=== PATIENT | female | born 1960 | race Caucasian/White ===

== ENCOUNTER 2017-01-07 22:25 | Emergency (ER) | payer MEDICARE, MEDICAID ==
[~2017-01-07] VITALS: Ht 165.1 cm; Wt 69.9 kg
[~2017-01-07 22:25] MED LIST: ASP81EC PO; ASPI81CH43 PO; Atorvastatin Calcium PO; INSU70IN9 SC; INSUINJ49 SC; LIS5T PO; METF500T PO; NOR10T PO; Phenazopyridine Hcl PO
[2017-01-08] MEDS ORDERED: SODIUM CHLORIDE 0.9% 1,000 ML IV ONE ×2 (01:45)
[2017-01-08] MEDS ORDERED: MORPHINE SULF INJ 2 MG/ML SYRINGE 1ML IV ONE (02:00)
[2017-01-08 02:35] LABS: Basophils # (auto) 0.1 uL; Basophils % (auto) 0.8 % (0.0-2.0); Eosinophils # (auto) 0.3 uL; Eosinophils % (auto) 4.3 % (0.0-7.0); Hematocrit 32.9 % (36.0-46.0); Hemoglobin 11.4 g/dL (12.2-16.2); Lymphocytes # (auto) 2.2 uL; Lymphocytes % (auto) 27.5 % (10.0-50.0); Mean Corpuscular Hemoglobin 29.3 pg (28.0-32.0); Mean Corpuscular Hgb Conc. 34.5 g/dL (32.0-36.0); Mean Corpuscular Volume 84.8 fL (80.0-100.0); Monocytes # (auto) 0.7 uL; Monocytes % (auto) 8.8 % (0.0-12.0); Neutrophils # (auto) 4.7 uL; Neutrophils % (auto) 58.6 % (37.0-80.0); Platelet Count (auto) 323 10^3/uL (140-450); Red Cell Distribution Width 12.5 % (11.6-16.0)
[2017-01-08 02:52] LABS: INR 1.04 (0.9-1.15); Prothrombin Time 11.2 sec (9.37-12.3)
[2017-01-08 02:59] LABS: Potassium 3.5 mmol/L (3.5-5.1)
[2017-01-08 03:00] LABS: Albumin 3.1 g/dL (3.4-5.0); BUN/Creatinine Ratio 28.3; Bilirubin, Total 1.1 mg/dL (0.2-1.0); Calcium 8.5 mg/dL (8.5-10.1); Total Protein 6.9 g/dL (6.4-8.2)
[2017-01-08 04:05] VITALS: BP 133/61
== END 2017-01-08 02:43 | disposition short-term general hospital (02) ==
LOC: ER 22:27
DX: S32.402A Unspecified fracture of left acetabulum, initial encounter for closed fracture (principal); F17.210 Nicotine dependence, cigarettes, uncomplicated; J45.909 Unspecified asthma, uncomplicated; E11.9 Type 2 diabetes mellitus without complications; W01.0XXA Fall on same level from slipping, tripping and stumbling without subsequent striking against object, initial encounter; Y93.89 Activity, other specified; Y99.8 Other external cause status; Y92.89 Other specified places as the place of occurrence of the external cause; Z88.1 Allergy status to other antibiotic agents; Z79.82 Long term (current) use of aspirin; Z79.4 Long term (current) use of insulin
CPT/HCPCS: 36415; 71010; 73502; 80053; 82962; 85025; 85610; 85730; 93005; 94761; 96361; 96374; 99285; J2270; J7030

== ENCOUNTER 2017-03-02 12:36 | Emergency (ER) | payer MEDICAID, MEDICARE ==
[~2017-03-02] VITALS: Ht 165.1 cm; Wt 67.1 kg
[2017-03-02 13:54] LABS: Basophils # (auto) 0 uL; Basophils % (auto) 0.2 % (0.0-2.0); CONDITION Y; Eosinophils # (auto) 0.1 uL; Eosinophils % (auto) 1.7 % (0.0-7.0); Hematocrit 41.8 % (36.0-46.0); Hemoglobin 14.6 g/dL (12.2-16.2); Lymphocytes # (auto) 1.3 uL; Lymphocytes % (auto) 15.5 % (10.0-50.0); Mean Corpuscular Hemoglobin 29.6 pg (28.0-32.0); Mean Corpuscular Hgb Conc. 34.9 g/dL (32.0-36.0); Mean Corpuscular Volume 84.8 fL (80.0-100.0); Mean Platelet Volume 8.4 fL (7.4-10.4); Monocytes # (auto) 0.4 uL; Monocytes % (auto) 4.2 % (0.0-12.0); Neutrophils # (auto) 6.8 uL; Neutrophils % (auto) 78.4 % (37.0-80.0); Platelet Count (auto) 373 10^3/uL (140-450); Red Cell Distribution Width 12.6 % (11.6-16.0); White Blood Cell 8.6 10^3/uL (4.4-10.8)
[2017-03-02 14:00] LABS: Albumin 3.5 g/dL (3.4-5.0); Alkaline Phosphatase 147 U/L (45-117); Anion Gap 10 (5-15); Aspartate Aminotransferase 15 U/L (15-37); BUN/Creatinine Ratio 18.2; Bilirubin, Total 0.7 mg/dL (0.2-1.0); Blood Urea Nitrogen 20 mg/dL (7-18); Calcium 9.1 mg/dL (8.5-10.1); Carbon Dioxide 24 mmol/L (21-32); Chloride 102 mmol/L (98-107); GFR African American 66 mL/min; GFR Non-African American 55 mL/min; Glucose 381 mg/dL (74-106); Potassium 3.4 mmol/L (3.5-5.1); Sodium 136 mmol/L (136-145); Total Protein 7.9 g/dL (6.4-8.2)
[2017-03-02 14:28] LABS: Urine Bilirubin Negative (Negative); Urine Blood Negative /uL (Negative); Urine Color Yellow (Yellow); Urine Glucose 4+ mg/dL (Normal); Urine Ketone Negative (Negative); Urine Mucus FEW (None Seen); Urine Nitrite Negative (Negative); Urine RBC 1 /hpf (0 - 4); Urine Squamous Epithelial Cell FEW /hpf (<5); Urine Urobilinogen Normal (Negative); Urine pH 5.5 (5.0-8.0)
[2017-03-02] MEDS ORDERED: SODIUM CHLORIDE 0.9% 1,000 ML IV ONE (19:30)
[2017-03-02] MEDS ORDERED: ONDANSETRON HCL 4 MG/2 ML VIAL IV ONE (19:30)
[2017-03-02] MEDS ORDERED: MAGNESIUM CITRATE SOLUTION 300 ML BTL PO ONE (19:30)
[2017-03-02] MEDS ORDERED: NALBUPHINE HCL 10 MG/1ml INJECTION IV ONE (22:00)
[2017-03-02] MEDS ORDERED: FAMOTIDINE (10MG/ML) 2ML VL IV ONE (22:30)
[2017-03-02] MEDS ORDERED: HYDROcodone-ACET 10/325MG TAB PO ONE (22:30)
[2017-03-02] MEDS ORDERED: InsuLIN REG 1unit/0.01ml Soln (100units/ml) IV ONE (23:15)
[2017-03-03 01:44] VITALS: BP 110/71
== END 2017-03-03 02:01 | disposition home or self-care (01) ==
LOC: ER 12:36
DX: K29.70 Gastritis, unspecified, without bleeding (principal); F41.9 Anxiety disorder, unspecified; K59.00 Constipation, unspecified; Z88.1 Allergy status to other antibiotic agents; E11.65 Type 2 diabetes mellitus with hyperglycemia; F17.210 Nicotine dependence, cigarettes, uncomplicated; J45.909 Unspecified asthma, uncomplicated; Z79.899 Other long term (current) drug therapy; Z79.82 Long term (current) use of aspirin; Z79.4 Long term (current) use of insulin; Z90.49 Acquired absence of other specified parts of digestive tract
CPT/HCPCS: 36415; 74176; 80053; 81001; 82962; 83690; 84484; 85025; 96361; 96374; 96375; 99285; J2405; J7030

== ENCOUNTER 2017-03-03 06:10 | Emergency (ER) | payer MEDICARE ==
[~2017-03-03] VITALS: Ht 160 cm; Wt 67.1 kg
[2017-03-03 09:04] VITALS: BP 132/79
[2017-03-03] MEDS ORDERED: ONDANSETRON ODT 4 MG TAB PO ONE (09:15)
[2017-03-03] MEDS ORDERED: PANTOPRAZOLE 40 MG TAB PO ONE (09:15)
== END 2017-03-03 09:20 | disposition home or self-care (01) ==
LOC: ER 06:19
DX: K29.70 Gastritis, unspecified, without bleeding (principal); J45.909 Unspecified asthma, uncomplicated; E11.9 Type 2 diabetes mellitus without complications; F17.210 Nicotine dependence, cigarettes, uncomplicated; Z79.4 Long term (current) use of insulin; Z79.899 Other long term (current) drug therapy; Z79.82 Long term (current) use of aspirin
CPT/HCPCS: 99283; Q0162

== ENCOUNTER 2017-04-06 20:53 | Inpatient (IN) | payer MEDICARE ==
[~2017-04-06] VITALS: Ht 160 cm; Wt 72.2 kg
[~2017-04-06 20:53] MED LIST changes: -Atorvastatin Calcium PO; +INS7030I SC; -INSUINJ49 SC; -LIS5T PO; -METF500T PO
[2017-04-06 22:08] LABS: Basophils # (auto) 0 uL; Basophils % (auto) 0.5 % (0.0-2.0); CONDITION Y; Eosinophils # (auto) 0.1 uL; Hemoglobin 16.4 g/dL (12.2-16.2); Mean Corpuscular Hemoglobin 29.7 pg (28.0-32.0); Mean Corpuscular Hgb Conc. 34.8 g/dL (32.0-36.0); Mean Corpuscular Volume 85.2 fL (80.0-100.0); Mean Platelet Volume 9.2 fL (7.4-10.4); Monocytes # (auto) 0.3 uL; Monocytes % (auto) 4.1 % (0.0-12.0); Neutrophils # (auto) 5.5 uL; Neutrophils % (auto) 69.4 % (37.0-80.0); Platelet Count (auto) 395 10^3/uL (140-450); Red Cell Distribution Width 12.9 % (11.6-16.0)
[2017-04-06 22:32] LABS: Albumin 3.6 g/dL (3.4-5.0); Calcium 9.1 mg/dL (8.5-10.1); Potassium 4.4 mmol/L (3.5-5.1)
[2017-04-06 22:37] LABS: BUN/Creatinine Ratio 20.7; Bilirubin, Total 1.4 mg/dL (0.2-1.0); Total Protein 8.7 g/dL (6.4-8.2)
[2017-04-06] MEDS ORDERED: SODIUM CHLORIDE 0.9% 1,000 ML IVB ONE (22:37)
[2017-04-06] MEDS ORDERED: KETOROLAC TROMETH 30 MG/ML 1ML VIAL IV ONE (22:45)
[2017-04-06] MEDS ORDERED: InsuLIN REG 1unit/0.01ml Soln (100units/ml) IV ONE (22:45)
[2017-04-06] MEDS ORDERED: ONDANSETRON HCL 4 MG/2 ML VIAL IV ONE (22:45)
[2017-04-06 22:56] LABS: Magnesium 2.4 mg/dL (1.6-2.6)
[2017-04-06 22:58] LABS: Urine RBC 2 /hpf (0 - 4); Urine Squamous Epithelial Cell FEW /hpf (<5)
[2017-04-06 23:09] LABS: Urine Bilirubin Negative (Negative); Urine Blood Negative /uL (Negative); Urine Color Yellow (Yellow); Urine Glucose 4+ mg/dL (Normal); Urine Ketone Negative (Negative); Urine Nitrite Negative (Negative); Urine Urobilinogen Normal (Negative)
[2017-04-06 23:11] LABS: INR 0.92 (0.9-1.15); Partial Thromboplastin Time 22.5 sec (22.64-33.71)
[2017-04-06 23:27] LABS: B-Type Natriuretic Peptide 25.13 pg/mL (0-100)
[2017-04-06 23:28] LABS: Temperature: 23.9 C (20.0-25.0)
[2017-04-07] MEDS ORDERED: HYDROcodone-ACET 5/325MG TAB PO ONE (00:15)
[2017-04-07] MEDS ORDERED: InsuLIN R (HUMAN) 100 UNITS in SODIUM CHL 0.9% 99 ML IV SCH (01:06)
[2017-04-07] MEDS ORDERED: DEXTROSE (50%) 50ML SYRG IV PRN ×3 (01:15→18:30)
[2017-04-07] MEDS: ACCU-CHEK COMFORT CURVE STRIP VI SCH ×17 (01:30→21:19)
[2017-04-07] MEDS ORDERED: InsuLIN REG 1unit/0.01ml Soln (100units/ml) ONE (01:44)
[2017-04-07] MEDS ORDERED: ONDANSETRON HCL 4 MG/2 ML VIAL IV ONE (03:00)
[2017-04-07] MEDS ORDERED: NITROGLYCERIN 0.4 MG SL TAB SL PRN ×2 (04:45→18:30)
[2017-04-07] MEDS ORDERED: MORPHINE SULF INJ 2 MG/ML SYRINGE 1ML IV PRN ×2 (04:45→18:30)
[2017-04-07] MEDS ORDERED: LACTULOSE 20Gm/30ML SOLN PO PRN (04:45)
[2017-04-07] MEDS ORDERED: ONDANSETRON HCL 4 MG/2 ML VIAL IV PRN (05:00)
[2017-04-07] MEDS: SODIUM CHLORIDE 0.9% 1,000 ML IV SCH ×2 (05:03→10:24)
[2017-04-07] MEDS: HYDROmorphone HCL 2 MG/ML VL IV PRN ×3 (05:12→19:29)
[2017-04-07] MEDS: FAMOTIDINE 20 MG TAB PO SCH ×2 (08:44→21:41)
[2017-04-07 10:27] LABS: Basophils # (auto) 0.1 uL; CONDITION Y; Eosinophils # (auto) 0.2 uL; Eosinophils % (auto) 4.3 % (0.0-7.0); Hematocrit 38.3 % (36.0-46.0); Hemoglobin 13.7 g/dL (12.2-16.2); Lymphocytes # (auto) 1.6 uL; Mean Corpuscular Hemoglobin 29.9 pg (28.0-32.0); Mean Corpuscular Hgb Conc. 35.7 g/dL (32.0-36.0); Mean Corpuscular Volume 83.7 fL (80.0-100.0); Mean Platelet Volume 8.5 fL (7.4-10.4); Monocytes # (auto) 0.3 uL; Monocytes % (auto) 5.7 % (0.0-12.0); Platelet Count (auto) 294 10^3/uL (140-450); Red Cell Distribution Width 13.3 % (11.6-16.0); White Blood Cell 5.2 10^3/uL (4.4-10.8)
[2017-04-07 10:42] LABS: Albumin 2.9 g/dL (3.4-5.0); BUN/Creatinine Ratio 28.7; Calcium 8.2 mg/dL (8.5-10.1); Potassium 4.1 mmol/L (3.5-5.1)
[2017-04-07 10:44] LABS: Bilirubin, Total 0.7 mg/dL (0.2-1.0)
[2017-04-07] MEDS ORDERED: INSULIN 70/30 1unit/0.01ml Susp (100units/ml) SC ONE (13:30)
[2017-04-07] MEDS: HYDROcodone-ACET 5/325MG TAB PO PRN (15:14)
[2017-04-07] MEDS: InsuLIN REG 1unit/0.01ml Soln (100units/ml) SC SCH ×2 (16:03→21:20)
[2017-04-07 20:00] VITALS: BP 109/76
[2017-04-07] MEDS: INSULIN 70/30 1unit/0.01ml Susp (100units/ml) SC SCH (21:42)
[2017-04-07 22:17] VITALS: BP 109/66
[2017-04-08] MEDS: InsuLIN REG 1unit/0.01ml Soln (100units/ml) SC SCH ×6 (00:20→22:25)
[2017-04-08] MEDS: ACCU-CHEK COMFORT CURVE STRIP VI SCH ×6 (00:20→22:21)
[2017-04-08] MEDS ORDERED: TRAM50TA2 PO (02:02)
[2017-04-08] MEDS: HYDROmorphone HCL 2 MG/ML VL IV PRN ×3 (02:27→11:40)
[2017-04-08] MEDS ORDERED: SODIUM CHLORIDE 0.9% 1,000 ML IV SCH (04:45)
[2017-04-08 05:31] VITALS: BP 104/64
[2017-04-08 06:47] LABS: Basophils # (auto) 0 uL; Basophils % (auto) 0.5 % (0.0-2.0); CONDITION Y; Eosinophils # (auto) 0.2 uL; Eosinophils % (auto) 4.2 % (0.0-7.0); Hematocrit 34.7 % (36.0-46.0); Hemoglobin 12.6 g/dL (12.2-16.2); Lymphocytes # (auto) 1.4 uL; Lymphocytes % (auto) 25.4 % (10.0-50.0); Mean Corpuscular Hemoglobin 31.1 pg (28.0-32.0); Mean Corpuscular Hgb Conc. 36.2 g/dL (32.0-36.0); Mean Corpuscular Volume 85.9 fL (80.0-100.0); Mean Platelet Volume 8.9 fL (7.4-10.4); Monocytes # (auto) 0.4 uL; Neutrophils # (auto) 3.4 uL; Neutrophils % (auto) 62.9 % (37.0-80.0); Platelet Count (auto) 236 10^3/uL (140-450); Red Cell Distribution Width 13.8 % (11.6-16.0); White Blood Cell 5.3 10^3/uL (4.4-10.8)
[2017-04-08 07:01] LABS: Albumin 2.4 g/dL (3.4-5.0); BUN/Creatinine Ratio 29.5; Calcium 7.8 mg/dL (8.5-10.1); Potassium 3.9 mmol/L (3.5-5.1)
[2017-04-08 07:03] LABS: Bilirubin, Total 0.4 mg/dL (0.2-1.0); Total Protein 5.9 g/dL (6.4-8.2)
[2017-04-08 08:00] VITALS: BP 102/61
[2017-04-08 09:00] VITALS: BP 102/61
[2017-04-08] MEDS: FAMOTIDINE 20 MG TAB PO SCH ×2 (09:51→22:17)
[2017-04-08] MEDS: INSULIN 70/30 1unit/0.01ml Susp (100units/ml) SC SCH ×2 (09:52→22:23)
[2017-04-08] MEDS ORDERED: NICOTINE 21MG/24 HR TOPICAL PATCH TD ONE (11:00)
[2017-04-08 13:00] VITALS: BP 113/71
[2017-04-08] MEDS ORDERED: DEXTROSE (50%) 50ML SYRG IV PRN (13:30)
[2017-04-08 16:54] VITALS: BP 120/69
[2017-04-08] MEDS: HYDROcodone-ACET 5/325MG TAB PO PRN (16:54)
[2017-04-08 21:26] VITALS: BP 118/69
[2017-04-09] MEDS: HYDROcodone-ACET 5/325MG TAB PO PRN ×3 (00:03→17:14)
[2017-04-09 05:05] VITALS: BP 104/69
[2017-04-09 05:23] LABS: BUN/Creatinine Ratio 29.1; Calcium 7.7 mg/dL (8.5-10.1); Potassium 3.6 mmol/L (3.5-5.1)
[2017-04-09] MEDS: SODIUM CHLORIDE 0.9% 1,000 ML IV SCH ×2 (05:24→20:43)
[2017-04-09] MEDS: InsuLIN REG 1unit/0.01ml Soln (100units/ml) SC SCH ×4 (06:23→22:19)
[2017-04-09] MEDS: ACCU-CHEK COMFORT CURVE STRIP VI SCH ×4 (06:23→22:19)
[2017-04-09 09:00] VITALS: BP 105/62
[2017-04-09] MEDS: FAMOTIDINE 20 MG TAB PO SCH ×2 (10:26→22:19)
[2017-04-09] MEDS: INSULIN 70/30 1unit/0.01ml Susp (100units/ml) SC SCH ×2 (10:26→22:19)
[2017-04-09] MEDS: NICOTINE 21MG/24 HR TOPICAL PATCH TD SCH (10:27)
[2017-04-09 13:00] VITALS: BP 124/82
[2017-04-09 14:46] VITALS: BP 129/70
[2017-04-09] MEDS: KETOROLAC TROMETH 30 MG/ML 1ML VIAL IV PRN (20:42)
[2017-04-09] MEDS ORDERED: TEMAZEPAM 15 MG CAP PO ONE (23:15)
[2017-04-10] MEDS: HYDROcodone-ACET 5/325MG TAB PO PRN ×2 (00:21→18:55)
[2017-04-10 05:00] VITALS: BP 98/59
[2017-04-10] MEDS: InsuLIN REG 1unit/0.01ml Soln (100units/ml) SC SCH ×3 (06:31→18:41)
[2017-04-10] MEDS: ACCU-CHEK COMFORT CURVE STRIP VI SCH ×3 (06:31→18:39)
[2017-04-10] MEDS: KETOROLAC TROMETH 30 MG/ML 1ML VIAL IV PRN ×2 (06:52→14:47)
[2017-04-10 09:00] VITALS: BP 125/78
[2017-04-10] MEDS: SODIUM CHLORIDE 0.9% 1,000 ML IV SCH (09:21)
[2017-04-10] MEDS: FAMOTIDINE 20 MG TAB PO SCH (10:32)
[2017-04-10] MEDS: INSULIN 70/30 1unit/0.01ml Susp (100units/ml) SC SCH (10:33)
[2017-04-10] MEDS: NICOTINE 21MG/24 HR TOPICAL PATCH TD SCH (10:34)
[2017-04-10 13:00] VITALS: BP 134/92
[2017-04-10] MEDS ORDERED: InsuLIN REG 1unit/0.01ml Soln (100units/ml) SC ONE (16:15)
[2017-04-10 17:00] VITALS: BP 138/75
== END 2017-04-10 19:50 | disposition home or self-care (01) | DRG 682 ==
LOC: ER 21:13 → TELE 21:14 → TELE-WESTW 04-07 20:00
PROVIDERS: ADMIT Family Medicine; ATTEND Internal Medicine
DX: N17.0 Acute kidney failure with tubular necrosis (principal); E13.10 Other specified diabetes mellitus with ketoacidosis without coma; J45.909 Unspecified asthma, uncomplicated; F17.210 Nicotine dependence, cigarettes, uncomplicated; Z91.14 Patient's other noncompliance with medication regimen; Z88.1 Allergy status to other antibiotic agents; Z79.82 Long term (current) use of aspirin; Z79.4 Long term (current) use of insulin; Z90.49 Acquired absence of other specified parts of digestive tract; Z86.14 Personal history of Methicillin resistant Staphylococcus aureus infection; Z71.6 Tobacco abuse counseling; Z71.3 Dietary counseling and surveillance
CPT/HCPCS: 36415; 36600; 71020; 80048; 80053; 80307; 81001; 82010; 82805; 82962; 83036; 83605; 83735; 83880; 85025; 85610; 85730; 86141; 87081; 93005; 97110; 97116; 97163; 97530; J1815; J1885; J2405

== ENCOUNTER 2017-05-20 14:19 | Inpatient (IN) | payer MEDICARE, MEDICAID ==
[~2017-05-20] VITALS: Ht 160 cm; Wt 73.5 kg
[~2017-05-20 14:19] MED LIST changes: -ASPI81CH43 PO; -INS7030I SC; -INSU70IN9 SC; -NOR10T PO; -Phenazopyridine Hcl PO
[2017-05-20] MEDS ORDERED: SODIUM CHLORIDE 0.9% 1,000 ML IV ONE ×2 (14:29)
[2017-05-20] MEDS ORDERED: MORPHINE SULFATE 4 MG/ML SYRG IV ONE (14:45)
[2017-05-20] MEDS ORDERED: ONDANSETRON HCL 4 MG/2 ML VIAL IV ONE (14:45)
[2017-05-20] MEDS ORDERED: InsuLIN REG 1unit/0.01ml Soln (100units/ml) IV ONE (14:45)
[2017-05-20] MEDS ORDERED: MORPHINE SULF INJ 2 MG/ML SYRINGE 1ML IV ONE (15:00)
[2017-05-20 15:23] LABS: Basophils # (auto) 0.1 uL; Basophils % (auto) 1.2 % (0.0-2.0); Eosinophils # (auto) 0.1 uL; Eosinophils % (auto) 3.2 % (0.0-7.0); Hematocrit 35.1 % (36.0-46.0); Lymphocytes # (auto) 0.9 uL; Lymphocytes % (auto) 20.7 % (10.0-50.0); Mean Corpuscular Hemoglobin 29.6 pg (28.0-32.0); Mean Corpuscular Hgb Conc. 34.2 g/dL (32.0-36.0); Mean Corpuscular Volume 86.7 fL (80.0-100.0); Mean Platelet Volume 8.3 fL (7.4-10.4); Monocytes # (auto) 0.2 uL; Monocytes % (auto) 5.4 % (0.0-12.0); Neutrophils # (auto) 3.1 uL; Neutrophils % (auto) 69.5 % (37.0-80.0); Platelet Count (auto) 285 10^3/uL (140-450); Red Cell Distribution Width 12.9 % (11.6-16.0); White Blood Cell 4.5 10^3/uL (4.4-10.8)
[2017-05-20 15:36] LABS: INR 0.92 (0.9-1.15); Partial Thromboplastin Time 22.4 sec (22.64-33.71)
[2017-05-20 15:51] LABS: Alkaline Phosphatase 157 U/L (45-117); Anion Gap 10 (5-15); Aspartate Aminotransferase 6 U/L (15-37); BUN/Creatinine Ratio 46.3; Bilirubin, Total 0.4 mg/dL (0.2-1.0); Blood Urea Nitrogen 56 mg/dL (7-18); Calcium 8.5 mg/dL (8.5-10.1); Carbon Dioxide 18 mmol/L (21-32); Chloride 105 mmol/L (98-107); GFR African American 59 mL/min; GFR Non-African American 49 mL/min; Potassium 3.2 mmol/L (3.5-5.1); Sodium 133 mmol/L (136-145); Total Protein 7.3 g/dL (6.4-8.2)
[2017-05-20 16:14] LABS: Glucose 549 mg/dL (74-106)
[2017-05-20] MEDS ORDERED: SODIUM CHLORIDE 0.9% 1,000 ML IV SCH (17:03)
[2017-05-20] MEDS ORDERED: DEXTROSE (50%) 50ML SYRG IV PRN (17:15)
[2017-05-20] MEDS ORDERED: LORazepam 0.5 MG TAB PO PRN (17:15)
[2017-05-20] MEDS ORDERED: NITROGLYCERIN 0.4 MG SL TAB SL PRN (17:15)
[2017-05-20] MEDS ORDERED: TEMAZEPAM 15 MG CAP PO PRN (17:15)
[2017-05-20] MEDS ORDERED: ACETAMINOPHEN 500 MG TAB PO PRN (17:15)
[2017-05-20] MEDS ORDERED: MORPHINE SULF INJ 2 MG/ML SYRINGE 1ML IV PRN (17:15)
[2017-05-20 17:27] LABS: Amylase 48 U/L (25-115)
[2017-05-20] MEDS ORDERED: NICOTINE 14 MG/24HR TOPICAL PATCH TD ONE (18:15)
[2017-05-20] MEDS ORDERED: MORPHINE SULF INJ 2 MG/ML SYRINGE 1ML ONE (18:15)
[2017-05-20] MEDS ORDERED: ALBUTEROL SULF 2.5 MG/0.5ML(0.5%) NEB SOLN NEB PRN (18:15)
[2017-05-20] MEDS: PROMETHAZINE HCL 25 MG/ML 1ML IV PRN (18:27)
[2017-05-20] MEDS: MORPHINE SULFATE 4 MG/ML SYRG IV PRN (18:27)
[2017-05-20] MEDS ORDERED: AZITHROMYCIN 500MG/D5W 250ML 250 ML IV ONE (18:30)
[2017-05-20 19:04] LABS: Urine Bilirubin Negative (Negative); Urine Blood Negative /uL (Negative); Urine Color Yellow (Yellow); Urine Glucose 4+ mg/dL (Normal); Urine Ketone Negative (Negative); Urine Mucus FEW (None Seen); Urine Nitrite Negative (Negative); Urine RBC 4 /hpf (0 - 4); Urine Squamous Epithelial Cell FEW /hpf (<5); Urine Urobilinogen Normal (Negative); Urine pH 5.5 (5.0-8.0)
[2017-05-20] MEDS: SODIUM CHLORIDE 0.9% 1,000 ML IV SCH ×2 (19:58→21:34)
[2017-05-20] MEDS: ACCU-CHEK COMFORT CURVE STRIP VI SCH ×2 (20:03→23:28)
[2017-05-20] MEDS: FAMOTIDINE (10MG/ML) 2ML VL IV SCH (20:05)
[2017-05-20] MEDS: InsuLIN REG 1unit/0.01ml Soln (100units/ml) SC SCH ×2 (20:12→23:37)
[2017-05-20 20:30] VITALS: BP 106/65
[2017-05-20 22:00] VITALS: BP 106/65
[2017-05-20] MEDS ORDERED: HYDR-4663 PO (22:50)
[2017-05-20] MEDS ORDERED: TRAM50TA2 PO (22:50)
[2017-05-20] MEDS ORDERED: TEMA30CA PO (22:54)
[2017-05-21] VITALS (7 sets, daily range): BP systolic 97–122; BP diastolic 60–75
[2017-05-21] MEDS ORDERED: INSU70IN3 SC (00:34)
[2017-05-21] MEDS: HYDROcodone-ACET 5/325MG TAB PO PRN (01:08)
[2017-05-21] MEDS: ALBUTEROL SULF 2.5 MG/0.5ML(0.5%) NEB SOLN NEB SCH ×4 (01:26→19:36)
[2017-05-21] MEDS: IPRATROPIUM BROM 0.5 MG/2.5ML INH SOL NEB SCH ×4 (01:26→19:36)
[2017-05-21] MEDS: InsuLIN REG 1unit/0.01ml Soln (100units/ml) SC SCH ×5 (04:00→20:26)
[2017-05-21] MEDS: ACCU-CHEK COMFORT CURVE STRIP VI SCH ×5 (04:17→20:26)
[2017-05-21 05:34] LABS: Basophils # (auto) 0 uL; Basophils % (auto) 0.4 % (0.0-2.0); Eosinophils # (auto) 0.2 uL; Eosinophils % (auto) 2.3 % (0.0-7.0); Hematocrit 29.8 % (36.0-46.0); Hemoglobin 10.5 g/dL (12.2-16.2); Lymphocytes # (auto) 1.1 uL; Lymphocytes % (auto) 15.2 % (10.0-50.0); Mean Corpuscular Hemoglobin 30.2 pg (28.0-32.0); Mean Corpuscular Hgb Conc. 35.2 g/dL (32.0-36.0); Mean Corpuscular Volume 85.6 fL (80.0-100.0); Mean Platelet Volume 8.2 fL (7.4-10.4); Monocytes # (auto) 0.4 uL; Monocytes % (auto) 6.2 % (0.0-12.0); Neutrophils # (auto) 5.3 uL; Neutrophils % (auto) 75.9 % (37.0-80.0); Nucleated Red Blood Cells % 0.1 %; Platelet Count (auto) 224 10^3/uL (140-450); Red Cell Distribution Width 13.4 % (11.6-16.0)
[2017-05-21 06:18] LABS: Albumin 2.5 g/dL (3.4-5.0); BUN/Creatinine Ratio 58.5; Bilirubin, Total 0.2 mg/dL (0.2-1.0); Calcium 8.4 mg/dL (8.5-10.1); Potassium 3.3 mmol/L (3.5-5.1); Total Protein 6.1 g/dL (6.4-8.2)
[2017-05-21] MEDS: FAMOTIDINE (10MG/ML) 2ML VL IV SCH (09:07)
[2017-05-21] MEDS: MORPHINE SULFATE 4 MG/ML SYRG IV PRN ×3 (09:08→20:13)
[2017-05-21] MEDS: SODIUM CHLORIDE 0.9% 1,000 ML IV SCH ×3 (09:08→23:19)
[2017-05-21] MEDS: NICOTINE 14 MG/24HR TOPICAL PATCH TD SCH (09:09)
[2017-05-21] MEDS ORDERED: cefTRIAXone 1GM/50ML D5W 50 ML IV ONE (10:00)
[2017-05-21] MEDS ORDERED: AZITHROMYCIN 500MG/D5W 250ML 250 ML IV SCH (10:00)
[2017-05-21] MEDS ORDERED: ASPirin-EC 81 mg tab PO SCH (10:00)
[2017-05-21] MEDS ORDERED: ENOXAPARIN SOD 40 MG/0.4 ML SYRINGE SC SCH (10:00)
[2017-05-21] MEDS ORDERED: POTASSIUM CHL 20 Meq TABLET PO ONE (10:00)
[2017-05-21] MEDS: PANTOPRAZOLE 40 MG TAB PO SCH (12:46)
[2017-05-21] MEDS: PROMETHAZINE HCL 25 MG/ML 1ML IV PRN ×2 (17:37→20:26)
[2017-05-21 18:18] LABS: Hematocrit 28.1 % (36.0-46.0)
[2017-05-21] MEDS: ATORVASTATIN 20 MG TAB PO SCH (22:00)
[2017-05-22] VITALS (7 sets, daily range): BP systolic 119–137; BP diastolic 67–71
[2017-05-22] MEDS: ACCU-CHEK COMFORT CURVE STRIP VI SCH ×6 (00:22→20:00)
[2017-05-22] MEDS: InsuLIN REG 1unit/0.01ml Soln (100units/ml) SC SCH ×6 (00:22→20:31)
[2017-05-22] MEDS: MORPHINE SULFATE 4 MG/ML SYRG IV PRN ×5 (00:23→21:00)
[2017-05-22] MEDS: PROMETHAZINE HCL 25 MG/ML 1ML IV PRN ×5 (00:23→21:00)
[2017-05-22] MEDS: ALBUTEROL SULF 2.5 MG/0.5ML(0.5%) NEB SOLN NEB SCH ×4 (01:41→18:47)
[2017-05-22] MEDS: IPRATROPIUM BROM 0.5 MG/2.5ML INH SOL NEB SCH ×4 (01:41→18:47)
[2017-05-22 02:19] LABS: Hematocrit 26.5 % (36.0-46.0); Hemoglobin 9.1 g/dL (12.2-16.2)
[2017-05-22] MEDS: LACTULOSE 20Gm/30ML SOLN PO PRN ×2 (04:37→20:32)
[2017-05-22] MEDS: SODIUM CHLORIDE 0.9% 1,000 ML IV SCH ×3 (05:32→16:59)
[2017-05-22 07:47] LABS: Hematocrit 27.5 % (36.0-46.0); Hemoglobin 9.6 g/dL (12.2-16.2)
[2017-05-22] MEDS: cefTRIAXone 1GM/50ML D5W 50 ML IV SCH (08:37)
[2017-05-22] MEDS: BISACODYL 10 MG RECT SUPP PR ONE ×2 (10:00→10:13)
[2017-05-22] MEDS: PANTOPRAZOLE 40 MG TAB PO SCH (10:13)
[2017-05-22] MEDS: NICOTINE 14 MG/24HR TOPICAL PATCH TD SCH (10:14)
[2017-05-22] MEDS ORDERED: INS7030I SC (10:16)
[2017-05-22 11:45] LABS: Amylase 61 U/L (25-115)
[2017-05-22] MEDS: ATORVASTATIN 20 MG TAB PO SCH (22:00)
[2017-05-23] MEDS: ACCU-CHEK COMFORT CURVE STRIP VI SCH ×5 (00:04→22:02)
[2017-05-23] MEDS: InsuLIN REG 1unit/0.01ml Soln (100units/ml) SC SCH ×4 (00:04→17:36)
[2017-05-23] MEDS: SODIUM CHLORIDE 0.9% 1,000 ML IV SCH (01:04)
[2017-05-23 05:00] VITALS: BP 136/73
[2017-05-23] MEDS: HYDROcodone-ACET 5/325MG TAB PO PRN ×3 (05:00→17:37)
[2017-05-23] MEDS: ALBUTEROL SULF 2.5 MG/0.5ML(0.5%) NEB SOLN NEB SCH ×5 (05:36→23:34)
[2017-05-23] MEDS: IPRATROPIUM BROM 0.5 MG/2.5ML INH SOL NEB SCH ×5 (05:36→23:34)
[2017-05-23 06:27] LABS: Basophils # (auto) 0.1 uL; Basophils % (auto) 0.9 % (0.0-2.0); Eosinophils # (auto) 0.3 uL; Eosinophils % (auto) 4.8 % (0.0-7.0); Hematocrit 27.4 % (36.0-46.0); Hemoglobin 9.6 g/dL (12.2-16.2); Lymphocytes # (auto) 1.3 uL; Lymphocytes % (auto) 20.8 % (10.0-50.0); Mean Corpuscular Volume 85.8 fL (80.0-100.0); Monocytes # (auto) 0.3 uL; Monocytes % (auto) 5.3 % (0.0-12.0); Neutrophils # (auto) 4.2 uL; Neutrophils % (auto) 68.2 % (37.0-80.0); Platelet Count (auto) 223 10^3/uL (140-450); Red Cell Distribution Width 13.2 % (11.6-16.0); White Blood Cell 6.1 10^3/uL (4.4-10.8)
[2017-05-23 08:00] VITALS: BP 133/75
[2017-05-23 08:24] VITALS: BP 133/75
[2017-05-23] MEDS: cefTRIAXone 1GM/50ML D5W 50 ML IV SCH (09:00)
[2017-05-23] MEDS ORDERED: DEXTROSE (50%) 50ML SYRG IV PRN (10:15)
[2017-05-23] MEDS ORDERED: GABAPENTIN 300 MG CAP PO ONE (10:15)
[2017-05-23] MEDS ORDERED: LACTULOSE 20Gm/30ML SOLN PO ONE (10:15)
[2017-05-23] MEDS ORDERED: MORPHINE SULF INJ 2 MG/ML SYRINGE 1ML IV PRN (10:15)
[2017-05-23] MEDS ORDERED: INSULIN 70/30 1unit/0.01ml Susp (100units/ml) SC ONE (10:15)
[2017-05-23] MEDS ORDERED: DOCUSATE SOD 100 MG CAP PO ONE (10:15)
[2017-05-23] MEDS: PANTOPRAZOLE 40 MG TAB PO SCH (11:00)
[2017-05-23] MEDS: NICOTINE 14 MG/24HR TOPICAL PATCH TD SCH (11:01)
[2017-05-23 12:20] VITALS: BP 125/70
[2017-05-23] MEDS ORDERED: GABAPENTIN 300 MG CAP PO SCH (14:00)
[2017-05-23 16:35] VITALS: BP 129/72
[2017-05-23] MEDS ORDERED: SODIUM CHLORIDE 0.9% 1,000 ML IV SCH (20:00)
[2017-05-23 21:30] VITALS: BP 128/72
[2017-05-23] MEDS ORDERED: InsuLIN REG 1unit/0.01ml Soln (100units/ml) SC SCH (22:00)
[2017-05-23] MEDS: ATORVASTATIN 20 MG TAB PO SCH (22:00)
[2017-05-23] MEDS: INSULIN 70/30 1unit/0.01ml Susp (100units/ml) SC SCH (22:01)
[2017-05-24 02:56] VITALS: BP 128/72
[2017-05-24 05:00] VITALS: BP 121/61
[2017-05-24 05:49] LABS: BUN/Creatinine Ratio 27.7; Calcium 8.3 mg/dL (8.5-10.1); Potassium 3.6 mmol/L (3.5-5.1)
[2017-05-24] MEDS: ALBUTEROL SULF 2.5 MG/0.5ML(0.5%) NEB SOLN NEB SCH ×2 (06:00→11:23)
[2017-05-24] MEDS: IPRATROPIUM BROM 0.5 MG/2.5ML INH SOL NEB SCH ×2 (06:00→11:24)
[2017-05-24] MEDS: ACCU-CHEK COMFORT CURVE STRIP VI SCH (06:18)
[2017-05-24] MEDS: InsuLIN REG 1unit/0.01ml Soln (100units/ml) SC SCH (06:18)
[2017-05-24] MEDS: HYDROcodone-ACET 5/325MG TAB PO PRN (06:20)
[2017-05-24] MEDS: cefTRIAXone 1GM/50ML D5W 50 ML IV SCH (09:00)
[2017-05-24 10:09] VITALS: BP 133/76
[2017-05-24] MEDS: PANTOPRAZOLE 40 MG TAB PO SCH (10:33)
[2017-05-24] MEDS: NICOTINE 14 MG/24HR TOPICAL PATCH TD SCH (10:34)
[2017-05-24] MEDS: INSULIN 70/30 1unit/0.01ml Susp (100units/ml) SC SCH (10:34)
[2017-05-24 11:52] VITALS: BP 133/76
[2017-05-24 12:34] VITALS: BP 125/67
== END 2017-05-24 15:10 | disposition home or self-care (01) | DRG 191 ==
LOC: EDBD 14:19 → ER 14:22 → TELE 14:23 → TELE-CENTR 20:30 → CENTRAL 05-23 13:16
PROVIDERS: ADMIT Internal Medicine; ATTEND Internal Medicine
DX: J44.1 Chronic obstructive pulmonary disease with (acute) exacerbation (principal); E87.1 Hypo-osmolality and hyponatremia; E11.42 Type 2 diabetes mellitus with diabetic polyneuropathy; N39.0 Urinary tract infection, site not specified; K56.41 Fecal impaction; E11.65 Type 2 diabetes mellitus with hyperglycemia; S32.402D Unspecified fracture of left acetabulum, subsequent encounter for fracture with routine healing; D64.9 Anemia, unspecified; F41.9 Anxiety disorder, unspecified; G47.00 Insomnia, unspecified; F15.10 Other stimulant abuse, uncomplicated; E78.1 Pure hyperglyceridemia; F17.210 Nicotine dependence, cigarettes, uncomplicated; E87.6 Hypokalemia; Z82.49 Family history of ischemic heart disease and other diseases of the circulatory system; Z80.9 Family history of malignant neoplasm, unspecified; Z90.710 Acquired absence of both cervix and uterus; Z87.81 Personal history of (healed) traumatic fracture; Z79.4 Long term (current) use of insulin; Z88.1 Allergy status to other antibiotic agents; Z79.82 Long term (current) use of aspirin; Z90.49 Acquired absence of other specified parts of digestive tract; Z82.61 Family history of arthritis; Z84.89 Family history of other specified conditions
CPT/HCPCS: 36415; 71010; 74176; 80048; 80053; 80061; 80307; 81001; 82150; 82962; 83036; 83690; 84484; 85014; 85018; 85025; 85045; 85610; 85652; 85730; 86850; 86900; 86901; 87081; 87086; 94640; 96361; 96374; 96375; J0696; J1815; J2405; J3490

== ENCOUNTER 2017-10-19 10:29 | Inpatient (IN) | payer MEDICARE ==
[~2017-10-19] VITALS: Ht 160 cm; Wt 64.5 kg
[~2017-10-19 10:29] MED LIST changes: -ASP81EC PO; +HYDR-4683 PO; +INS7030I SC; +LORA-654 PO; +TEMA30CA PO
[2017-10-19] MEDS ORDERED: SODIUM CHLORIDE 0.9% 1,000 ML IVB ONE (11:09)
[2017-10-19] MEDS ORDERED: SODIUM CHLORIDE 0.9% 1,000 ML IV ONE (11:15)
[2017-10-19 11:21] LABS: Basophils # (auto) 0 uL; Basophils % (auto) 0.6 % (0.0-2.0); Eosinophils # (auto) 0.2 uL; Eosinophils % (auto) 2.9 % (0.0-7.0); Hemoglobin 14.6 g/dL (12.2-16.2); Lymphocytes # (auto) 1.4 uL; Lymphocytes % (auto) 19.6 % (10.0-50.0); Mean Corpuscular Hemoglobin 28.5 pg (28.0-32.0); Mean Corpuscular Hgb Conc. 33.2 g/dL (32.0-36.0); Mean Corpuscular Volume 85.8 fL (80.0-100.0); Monocytes # (auto) 0.3 uL; Monocytes % (auto) 4.7 % (0.0-12.0); Neutrophils # (auto) 5.1 uL; Neutrophils % (auto) 72.2 % (37.0-80.0); Nucleated Red Blood Cells % 0.1 %; Platelet Count (auto) 300 10^3/uL (140-450); Red Blood Cells 5.13 10^6/uL (4.0-5.20); Red Cell Distribution Width 14.4 % (11.8-14.3); White Blood Cell 7.1 10^3/uL (4.4-10.8)
[2017-10-19 11:54] LABS: Alanine Aminotransferase 18 U/L (13-56); Albumin 2.8 g/dL (3.4-5.0); Alkaline Phosphatase 192 U/L (45-117); Anion Gap 14 (5-15); Aspartate Aminotransferase 13 U/L (15-37); BUN/Creatinine Ratio 17.6; Bilirubin, Total 1.1 mg/dL (0.2-1.0); Blood Urea Nitrogen 22 mg/dL (7-18); Calcium 8.3 mg/dL (8.5-10.1); Carbon Dioxide 20 mmol/L (21-32); Chloride 90 mmol/L (98-107); GFR African American 57 mL/min; GFR Non-African American 47 mL/min; Magnesium 2.5 mg/dL (1.6-2.6); Potassium 4.6 mmol/L (3.5-5.1); Sodium 124 mmol/L (136-145); Total Protein 7.5 g/dL (6.4-8.2)
[2017-10-19 11:56] LABS: INR 0.95 (0.9-1.15); Partial Thromboplastin Time 22.4 sec (22.64-33.71); Prothrombin Time 10.3 sec (9.37-12.3)
[2017-10-19 11:59] LABS: Glucose 857 mg/dL (74-106)
[2017-10-19] MEDS ORDERED: InsuLIN REG 1unit/0.01ml Soln (100units/ml) IV ONE (12:15)
[2017-10-19] MEDS ORDERED: MORPHINE SULFATE 4 MG/ML SYR/VIAL IV ONE (13:00)
[2017-10-19] MEDS ORDERED: ONDANSETRON HCL 4 MG/2 ML VIAL IV ONE (13:00)
[2017-10-19] MEDS ORDERED: MORPHINE SULFATE 4 MG/ML SYR/VIAL IV PRN (13:15)
[2017-10-19] MEDS ORDERED: NITROGLYCERIN 0.4 MG SL TAB SL PRN (13:15)
[2017-10-19] MEDS ORDERED: DEXTROSE (50%) 50ML SYRG IV PRN (13:15)
[2017-10-19] MEDS ORDERED: ACETAMINOPHEN 500 MG TAB PO PRN (13:15)
[2017-10-19 13:29] LABS: Alcohol, Urine < 3.0 mg/dL (0-5); Amphetamine Screen, Urine POSITIVE (NEGATIVE); Barbiturate Scree,Urine NEGATIVE (NEGATIVE); Benzodiazephine Screen, Urine NEGATIVE (NEGATIVE); Cannabinoid Screen, Urine NEGATIVE (NEGATIVE); Cocaine Screen, Urine NEGATIVE (NEGATIVE); Opiate Scree,Urine NEGATIVE (NEGATIVE); Phencyclidine Screen, Urine NEGATIVE (NEGATIVE)
[2017-10-19 13:32] LABS: Urine Bacteria NONE SEEN /hpf (None Seen); Urine Blood Negative /uL (Negative); Urine Specific Gravity 1.027 (1.001-1.035); Urine WBC 5 /hpf (0 - 5)
[2017-10-19] MEDS ORDERED: cefTRIAXone 1GM/10ml IVPUSH 10 ML IV ONE (13:45)
[2017-10-19 14:00] VITALS: BP 121/77
[2017-10-19 14:08] LABS: CRP High Sensitivity 1.02 mg/dL (< 0.3)
[2017-10-19] MEDS ORDERED: ASPI81CH49 PO (14:17)
[2017-10-19] MEDS: SODIUM CHLORIDE 0.9% 1,000 ML IV SCH ×2 (16:36→20:12)
[2017-10-19] MEDS: InsuLIN REG 1unit/0.01ml Soln (100units/ml) SC SCH ×3 (16:37→23:53)
[2017-10-19] MEDS: ACCU-CHEK COMFORT CURVE STRIP VI SCH ×3 (16:37→23:52)
[2017-10-19] MEDS: PROMETHAZINE HCL 25 MG/ML 1ML IV PRN (16:57)
[2017-10-19] MEDS: MORPHINE SULFATE 4 MG/ML SYR/VIAL IV PRN (16:57)
[2017-10-19 17:00] VITALS: BP 117/78
[2017-10-19 22:00] VITALS: BP 115/66
[2017-10-20] VITALS (7 sets, daily range): BP systolic 108–128; BP diastolic 62–71
[2017-10-20] MEDS: SODIUM CHLORIDE 0.9% 1,000 ML IV SCH ×2 (02:34→09:21)
[2017-10-20] MEDS: PROMETHAZINE HCL 25 MG/ML 1ML IV PRN ×2 (02:42→09:21)
[2017-10-20] MEDS: MORPHINE SULFATE 4 MG/ML SYR/VIAL IV PRN ×2 (02:42→09:22)
[2017-10-20] MEDS: InsuLIN REG 1unit/0.01ml Soln (100units/ml) SC SCH ×5 (04:00→21:59)
[2017-10-20] MEDS: ACCU-CHEK COMFORT CURVE STRIP VI SCH ×5 (04:08→21:21)
[2017-10-20 06:22] LABS: Potassium 3.8 mmol/L (3.5-5.1)
[2017-10-20 06:31] LABS: Albumin 2.1 g/dL (3.4-5.0); BUN/Creatinine Ratio 22.7; Calcium 7.9 mg/dL (8.5-10.1)
[2017-10-20 07:35] LABS: Bilirubin, Total 0.2 mg/dL (0.2-1.0); Total Protein 5.4 g/dL (6.4-8.2)
[2017-10-20] MEDS ORDERED: cefTRIAXone 1GM/10ml IVPUSH 10 ML IV SCH (09:00)
[2017-10-20] MEDS: PANTOPRAZOLE 40 MG TAB PO SCH (09:21)
[2017-10-20] MEDS ORDERED: MAGNESIUM CITRATE SOLUTION 300 ML BTL PO ONE (12:45)
[2017-10-20] MEDS ORDERED: DEXTROSE (50%) 50ML SYRG IV PRN (12:45)
[2017-10-20] MEDS ORDERED: MORPHINE SULFATE 4 MG/ML SYR/VIAL IV PRN (12:45)
[2017-10-20] MEDS ORDERED: guaiFENesin-DM 100/10mg/5ml SYR PO PRN (13:00)
[2017-10-20] MEDS ORDERED: guaiFENesin-DM 100/10mg/5ml SYR PO ONE (13:00)
[2017-10-20] MEDS ORDERED: IPRATROPIUM BROM 0.5 MG/2.5ML INH SOL NEB ONE (13:00)
[2017-10-20] MEDS ORDERED: ALBUTEROL SULF 2.5 MG/0.5ML(0.5%) NEB SOLN NEB PRN (13:00)
[2017-10-20] MEDS ORDERED: IPRATROPIUM BROM 0.5 MG/2.5ML INH SOL NEB PRN (13:00)
[2017-10-20] MEDS ORDERED: ALBUTEROL SULF 2.5 MG/0.5ML(0.5%) NEB SOLN NEB ONE (13:00)
[2017-10-20 13:23] LABS: Basophils # (auto) 0 uL; Eosinophils # (auto) 0.4 uL; Eosinophils % (auto) 9.8 % (0.0-7.0); Hematocrit 35.9 % (36.0-46.0); Hemoglobin 12.2 g/dL (12.2-16.2); Lymphocytes # (auto) 1.5 uL; Lymphocytes % (auto) 34.5 % (10.0-50.0); Mean Corpuscular Hemoglobin 28.7 pg (28.0-32.0); Mean Corpuscular Hgb Conc. 33.9 g/dL (32.0-36.0); Mean Corpuscular Volume 84.6 fL (80.0-100.0); Monocytes # (auto) 0.2 uL; Monocytes % (auto) 5.8 % (0.0-12.0); Neutrophils # (auto) 2.1 uL; Neutrophils % (auto) 48.9 % (37.0-80.0); Nucleated Red Blood Cells % 0.3 %; Platelet Count (auto) 185 10^3/uL (140-450); Red Blood Cells 4.24 10^6/uL (4.0-5.20); Red Cell Distribution Width 14.1 % (11.8-14.3); White Blood Cell 4.3 10^3/uL (4.4-10.8)
[2017-10-20] MEDS: IPRATROPIUM BROM 0.5 MG/2.5ML INH SOL NEB SCH (19:27)
[2017-10-20] MEDS: ALBUTEROL SULF 2.5 MG/0.5ML(0.5%) NEB SOLN NEB SCH (19:27)
[2017-10-20] MEDS: LORazepam 0.5 MG TAB PO PRN (21:28)
[2017-10-20] MEDS: HYDROcodone-ACET 5/325MG TAB PO PRN (21:31)
[2017-10-20] MEDS: AMOXICILLIN/CLAVUL 875 MG TAB PO SCH (21:31)
[2017-10-20] MEDS: INSULIN LANTUS (GLARGINE) 1 /0.01ml (100units/ml) SC SCH (22:19)
[2017-10-21] MEDS: HYDROcodone-ACET 5/325MG TAB PO PRN ×4 (01:25→21:31)
[2017-10-21 05:26] VITALS: BP 108/58
[2017-10-21 05:56] LABS: Basophils # (auto) 0.1 uL; Eosinophils # (auto) 0.4 uL; Eosinophils % (auto) 6.8 % (0.0-7.0); Hematocrit 32.5 % (36.0-46.0); Hemoglobin 10.9 g/dL (12.2-16.2); Lymphocytes # (auto) 1.3 uL; Lymphocytes % (auto) 24.3 % (10.0-50.0); Mean Corpuscular Hemoglobin 28.6 pg (28.0-32.0); Mean Corpuscular Hgb Conc. 33.6 g/dL (32.0-36.0); Mean Corpuscular Volume 85.3 fL (80.0-100.0); Monocytes # (auto) 0.2 uL; Monocytes % (auto) 4.6 % (0.0-12.0); Neutrophils # (auto) 3.3 uL; Neutrophils % (auto) 63.3 % (37.0-80.0); Nucleated Red Blood Cells % 0.1 %; Platelet Count (auto) 160 10^3/uL (140-450); Red Blood Cells 3.81 10^6/uL (4.0-5.20); Red Cell Distribution Width 14.1 % (11.8-14.3); White Blood Cell 5.3 10^3/uL (4.4-10.8)
[2017-10-21] MEDS: IPRATROPIUM BROM 0.5 MG/2.5ML INH SOL NEB SCH ×4 (06:35→18:26)
[2017-10-21] MEDS: ALBUTEROL SULF 2.5 MG/0.5ML(0.5%) NEB SOLN NEB SCH ×4 (06:35→18:26)
[2017-10-21] MEDS: InsuLIN REG 1unit/0.01ml Soln (100units/ml) SC SCH ×4 (06:51→22:00)
[2017-10-21] MEDS: ACCU-CHEK COMFORT CURVE STRIP VI SCH ×5 (06:52→21:44)
[2017-10-21] MEDS: INSULIN LANTUS (GLARGINE) 1 /0.01ml (100units/ml) SC SCH (06:52)
[2017-10-21 07:28] LABS: BUN/Creatinine Ratio 21.6; Calcium 7.7 mg/dL (8.5-10.1); Potassium 3.9 mmol/L (3.5-5.1)
[2017-10-21 08:18] VITALS: BP 113/58
[2017-10-21] MEDS: ASPirin-EC 81 mg tab PO SCH (09:38)
[2017-10-21] MEDS: PANTOPRAZOLE 40 MG TAB PO SCH (09:38)
[2017-10-21] MEDS: AMOXICILLIN/CLAVUL 875 MG TAB PO SCH ×2 (09:38→21:30)
[2017-10-21] MEDS ORDERED: NICOTINE 21MG/24 HR TOPICAL PATCH TD ONE (10:30)
[2017-10-21] MEDS ORDERED: ASCORBIC ACID 500 MG TAB PO ONE (10:30)
[2017-10-21 11:40] VITALS: BP 126/61
[2017-10-21 16:55] VITALS: BP 120/63
[2017-10-21] MEDS: INSULIN 70/30 1unit/0.01ml Susp (100units/ml) SC SCH (17:50)
[2017-10-21] MEDS: ASCORBIC ACID 500 MG TAB PO SCH (21:31)
[2017-10-21] MEDS: GEMFIBROZIL 600 MG TAB PO SCH (21:31)
[2017-10-21 22:00] VITALS: BP 142/73
[2017-10-22] MEDS: PROMETHAZINE HCL 25 MG/ML 1ML IV PRN ×3 (01:14→21:49)
[2017-10-22 05:00] VITALS: BP 135/89
[2017-10-22] MEDS: InsuLIN REG 1unit/0.01ml Soln (100units/ml) SC SCH ×4 (05:33→17:47)
[2017-10-22] MEDS: ALBUTEROL SULF 2.5 MG/0.5ML(0.5%) NEB SOLN NEB SCH ×3 (07:15→19:11)
[2017-10-22] MEDS: IPRATROPIUM BROM 0.5 MG/2.5ML INH SOL NEB SCH ×3 (07:15→19:11)
[2017-10-22] MEDS: HYDROcodone-ACET 5/325MG TAB PO PRN ×3 (07:22→21:50)
[2017-10-22] MEDS: INSULIN 70/30 1unit/0.01ml Susp (100units/ml) SC SCH ×2 (08:36→17:53)
[2017-10-22 09:00] VITALS: BP 150/78
[2017-10-22] MEDS: AMOXICILLIN/CLAVUL 875 MG TAB PO SCH ×2 (09:45→21:51)
[2017-10-22] MEDS: GEMFIBROZIL 600 MG TAB PO SCH ×2 (09:45→21:51)
[2017-10-22] MEDS: ASPirin-EC 81 mg tab PO SCH (09:45)
[2017-10-22] MEDS: NICOTINE 21MG/24 HR TOPICAL PATCH TD SCH (09:46)
[2017-10-22] MEDS: ASCORBIC ACID 500 MG TAB PO SCH ×2 (09:46→21:51)
[2017-10-22] MEDS: PANTOPRAZOLE 40 MG TAB PO SCH (09:46)
[2017-10-22] MEDS: ACCU-CHEK COMFORT CURVE STRIP VI SCH ×3 (12:40→21:51)
[2017-10-22 13:00] VITALS: BP 125/73
[2017-10-22 17:00] VITALS: BP 139/80
[2017-10-22] MEDS: LORazepam 0.5 MG TAB PO PRN (17:47)
[2017-10-22 21:56] VITALS: BP 97/61
[2017-10-23 05:29] VITALS: BP 134/71
[2017-10-23] MEDS: IPRATROPIUM BROM 0.5 MG/2.5ML INH SOL NEB SCH ×3 (05:59→12:00)
[2017-10-23] MEDS: ALBUTEROL SULF 2.5 MG/0.5ML(0.5%) NEB SOLN NEB SCH ×3 (05:59→12:00)
[2017-10-23 06:38] LABS: Basophils # (auto) 0 uL; Eosinophils # (auto) 0.4 uL; Eosinophils % (auto) 9.1 % (0.0-7.0); Hematocrit 38.6 % (36.0-46.0); Hemoglobin 13.1 g/dL (12.2-16.2); Lymphocytes # (auto) 1.4 uL; Lymphocytes % (auto) 30.8 % (10.0-50.0); Mean Corpuscular Hemoglobin 28.7 pg (28.0-32.0); Mean Corpuscular Volume 84.6 fL (80.0-100.0); Monocytes # (auto) 0.2 uL; Neutrophils # (auto) 2.5 uL; Neutrophils % (auto) 54.1 % (37.0-80.0); Nucleated Red Blood Cells % 0.8 %; Platelet Count (auto) 214 10^3/uL (140-450); Red Blood Cells 4.56 10^6/uL (4.0-5.20); Red Cell Distribution Width 14.1 % (11.8-14.3); White Blood Cell 4.7 10^3/uL (4.4-10.8)
[2017-10-23] MEDS: InsuLIN REG 1unit/0.01ml Soln (100units/ml) SC SCH ×2 (06:53→12:05)
[2017-10-23] MEDS: ACCU-CHEK COMFORT CURVE STRIP VI SCH ×2 (06:53→12:05)
[2017-10-23 06:56] LABS: BUN/Creatinine Ratio 26.7; Calcium 9.1 mg/dL (8.5-10.1); Magnesium 2.1 mg/dL (1.6-2.6); Potassium 3.9 mmol/L (3.5-5.1)
[2017-10-23] MEDS: AMOXICILLIN/CLAVUL 875 MG TAB PO SCH (08:28)
[2017-10-23] MEDS: INSULIN 70/30 1unit/0.01ml Susp (100units/ml) SC SCH (08:28)
[2017-10-23] MEDS: ASPirin-EC 81 mg tab PO SCH (08:28)
[2017-10-23] MEDS: GEMFIBROZIL 600 MG TAB PO SCH (08:28)
[2017-10-23] MEDS: ASCORBIC ACID 500 MG TAB PO SCH (08:28)
[2017-10-23] MEDS: PANTOPRAZOLE 40 MG TAB PO SCH (08:28)
[2017-10-23] MEDS: NICOTINE 21MG/24 HR TOPICAL PATCH TD SCH (08:29)
[2017-10-23 09:00] VITALS: BP 128/80
[2017-10-23] MEDS ORDERED: GEMF600T3 PO (12:37)
[2017-10-23] MEDS ORDERED: INS7030I SC (12:37)
[2017-10-23] MEDS ORDERED: AMOX-277 PO (12:37)
== END 2017-10-23 14:15 | disposition home or self-care (01) | DRG 682 ==
LOC: EDBD 10:29 → ER 10:29 → TELE 10:30 → TELE-WESTW 14:16 → WEST WING 10-20 13:06
PROVIDERS: ADMIT Internal Medicine; ATTEND Internal Medicine
DX: N17.0 Acute kidney failure with tubular necrosis (principal); E43 Unspecified severe protein-calorie malnutrition; E11.01 Type 2 diabetes mellitus with hyperosmolarity with coma; E11.40 Type 2 diabetes mellitus with diabetic neuropathy, unspecified; E11.22 Type 2 diabetes mellitus with diabetic chronic kidney disease; E86.0 Dehydration; E87.1 Hypo-osmolality and hyponatremia; J44.0 Chronic obstructive pulmonary disease with (acute) lower respiratory infection; E11.65 Type 2 diabetes mellitus with hyperglycemia; J20.9 Acute bronchitis, unspecified; K59.00 Constipation, unspecified; F17.210 Nicotine dependence, cigarettes, uncomplicated; E78.1 Pure hyperglyceridemia; F15.90 Other stimulant use, unspecified, uncomplicated; F41.9 Anxiety disorder, unspecified; N18.2 Chronic kidney disease, stage 2 (mild); Z82.49 Family history of ischemic heart disease and other diseases of the circulatory system; Z71.51 Drug abuse counseling and surveillance of drug abuser; Z86.14 Personal history of Methicillin resistant Staphylococcus aureus infection; Z88.8 Allergy status to other drugs, medicaments and biological substances; Z88.1 Allergy status to other antibiotic agents; Z79.4 Long term (current) use of insulin; Z79.899 Other long term (current) drug therapy; Z90.49 Acquired absence of other specified parts of digestive tract; Z68.25 Body mass index [BMI] 25.0-25.9, adult; Z71.6 Tobacco abuse counseling
CPT/HCPCS: 36415; 36600; 71046; 74176; 80048; 80053; 80307; 81001; 82150; 82805; 82962; 83036; 83605; 83690; 83735; 83930; 84443; 84484; 85025; 85610; 85652; 85730; 86141; 87040; 87081; 93005; 94640; 99291; J1815; J2405

== ENCOUNTER 2019-08-13 18:59 | Inpatient (IN) | payer MEDICARE ==
[~2019-08-13] VITALS: Ht 167.6 cm; Wt 64.5 kg
[~2019-08-13 18:59] MED LIST changes: +AMOX-277 PO; +ASPI81CH49 PO; +GEMF600T7 PO; -HYDR-4683 PO; +HYDR-4833 PO; -LORA-654 PO; +LORA0.5T12 PO; +PANT40T PO; +SERT50TA PO
[2019-08-13] MEDS ORDERED: SODIUM CHLORIDE 0.9% 1,000 ML IV ONE ×2 (19:23→21:45)
[2019-08-13] MEDS ORDERED: ACETAMINOPHEN 650 MG RECT SUPP PR ONE (19:30)
[2019-08-13] MEDS ORDERED: cefTRIAXone 1GM/50ML D5W 50 ML IV SCH (19:30)
[2019-08-13 19:59] LABS: Albumin 2.6 g/dL (3.4-5.0); Anion Gap 13 (5-15); Basophils # (auto) 0 uL; Basophils % (auto) 0.4 % (0.0-2.0); Blood Alcohol < 3.0 mg/dL (0-5); Calcium 8.6 mg/dL (8.5-10.1); Carbon Dioxide 23 mmol/L (21-32); Chloride 105 mmol/L (98-107); Eosinophils # (auto) 0 uL; Eosinophils % (auto) 0.1 % (0.0-7.0); Glucose 176 mg/dL (74-106); Hematocrit 38.5 % (36.0-46.0); Hemoglobin 12.5 g/dL (12.2-16.2); Lymphocytes # (auto) 0.2 uL; Lymphocytes % (auto) 2.1 % (10.0-50.0); Mean Corpuscular Hemoglobin 27.8 pg (28.0-32.0); Mean Corpuscular Hgb Conc. 32.4 g/dL (32.0-36.0); Mean Corpuscular Volume 85.8 fL (80.0-100.0); Monocytes # (auto) 0.1 uL; Monocytes % (auto) 1.3 % (0.0-12.0); Neutrophils # (auto) 8.9 uL; Neutrophils % (auto) 96.1 % (37.0-80.0); Nucleated Red Blood Cells % 0.1 %; Platelet Count (auto) 184 10^3/uL (140-450); Potassium 4.5 mmol/L (3.5-5.1); Red Blood Cells 4.49 10^6/uL (4.0-5.20); Sodium 141 mmol/L (136-145); White Blood Cell 9.3 10^3/uL (4.4-10.8)
[2019-08-13 20:05] LABS: Alanine Aminotransferase 26 U/L (13-56); Alkaline Phosphatase 116 U/L (45-117); Aspartate Aminotransferase 35 U/L (15-37); BUN/Creatinine Ratio 15.2; Bilirubin, Total 1.5 mg/dL (0.2-1.0); GFR African American 10 mL/min; GFR Non-African American 8 mL/min; Total Protein 8.2 g/dL (6.4-8.2)
[2019-08-13 20:06] LABS: Lactic Acid w/Reflex 2.6 mmol/L (0.4-2.0)
[2019-08-13 20:12] LABS: Blood Urea Nitrogen 86 mg/dL (7-18)
[2019-08-13 20:15] LABS: INR 1.55 (0.9-1.15); Partial Thromboplastin Time 27.2 sec (23.64-32.05)
[2019-08-13 20:24] LABS: Red Cell Distribution Width 21.9 % (11.8-14.3)
[2019-08-13] MEDS ORDERED: ONDANSETRON HCL 4 MG/2 ML VIAL IV ONE (22:00)
[2019-08-13] MEDS ORDERED: HYDROmorphone HCL 2 MG/ML VL IV ONE (22:00)
[2019-08-13] MEDS ORDERED: TEMAZEPAM 15 MG CAP PO PRN (22:45)
[2019-08-13] MEDS ORDERED: HYDROcodone-ACET 5/325MG TAB PO PRN (22:45)
[2019-08-13] MEDS ORDERED: VANCOMYCIN PER PHARMACY 0 MG IV SCH (22:45)
[2019-08-13] MEDS ORDERED: ONDANSETRON HCL 4 MG/2 ML VIAL IV PRN (22:45)
[2019-08-13] MEDS ORDERED: LEVOFLOXACIN 250MG 50 ML IV ONE (22:45)
[2019-08-13] MEDS ORDERED: ALBUMIN 5% 250 ML IV ONE (22:45)
[2019-08-13] MEDS ORDERED: NITROGLYCERIN 0.4 MG SL TAB SL PRN (23:00)
[2019-08-13] MEDS ORDERED: MORPHINE SULF INJ 2 MG/ML SYRINGE 1ML IV PRN (23:00)
[2019-08-14] VITALS (53 sets, daily range): BP systolic 72–135; BP diastolic 48–78
[2019-08-14 00:32] LABS: Alcohol, Urine < 3.0 mg/dL (0-5); Amphetamine Screen, Urine POSITIVE (NEGATIVE); Barbiturate Scree,Urine NEGATIVE (NEGATIVE); Benzodiazephine Screen, Urine POSITIVE (NEGATIVE); Cannabinoid Screen, Urine POSITIVE (NEGATIVE); Cocaine Screen, Urine NEGATIVE (NEGATIVE); Phencyclidine Screen, Urine NEGATIVE (NEGATIVE)
[2019-08-14 00:35] LABS: Urine Bacteria MOD /hpf (None Seen); Urine Blood 2+ /uL (Negative); Urine Hyaline Cast MANY /lpf (0 - 2); Urine Specific Gravity 1.026 (1.001-1.035); Urine WBC 7 /hpf (0 - 5)
[2019-08-14 00:41] LABS: Opiate Scree,Urine NEGATIVE (NEGATIVE)
[2019-08-14] MEDS: ACCU-CHEK COMFORT CURVE STRIP VI SCH ×4 (00:52→18:00)
[2019-08-14] MEDS: SODIUM CHLORIDE 0.9% 1,000 ML IV SCH ×2 (00:55→21:41)
[2019-08-14] MEDS: LEVOFLOXACIN 250MG 50 ML IV SCH (00:55)
[2019-08-14] MEDS: InsuLIN REG 1unit/0.01ml Soln (100units/ml) SC SCH ×4 (01:03→18:00)
[2019-08-14] MEDS: PHENYLEPHRINE INJ 20 MG in SODIUM CHL 0.9% 250 ML IV SCH ×2 (01:24→09:10)
[2019-08-14] MEDS ORDERED: PHENYLEPHRINE IV 250 ML IV ONE (01:44)
[2019-08-14] MEDS ORDERED: ACETAMINOPHEN 650 MG RECT SUPP PR PRN (04:45)
[2019-08-14] MEDS ORDERED: VANCOMYCIN 1GM/250ML 250 ML IV ONE ×3 (05:00→09:00)
[2019-08-14 06:40] LABS: Calcium 7.9 mg/dL (8.5-10.1); Potassium 4.7 mmol/L (3.5-5.1)
[2019-08-14 06:47] LABS: Albumin 2.3 g/dL (3.4-5.0); BUN/Creatinine Ratio 15.7; Bilirubin, Total 1.3 mg/dL (0.2-1.0); Total Protein 7.2 g/dL (6.4-8.2)
[2019-08-14] MEDS ORDERED: PANTOPRAZOLE 40 MG TAB PO SCH (07:00)
[2019-08-14 08:13] LABS: Hematocrit 36.3 % (36.0-46.0); Hemoglobin 11.5 g/dL (12.2-16.2); Mean Corpuscular Hemoglobin 27.4 pg (28.0-32.0); Mean Corpuscular Hgb Conc. 31.8 g/dL (32.0-36.0); Mean Corpuscular Volume 86.1 fL (80.0-100.0); Platelet Count (auto) 125 10^3/uL (140-450); Red Blood Cells 4.21 10^6/uL (4.0-5.20)
[2019-08-14 08:19] LABS: Red Cell Distribution Width 21.2 % (11.8-14.3)
[2019-08-14 08:20] LABS: Basophils % (manual) 0 (0.0-2.0); Blast Cells 0; Eosinophils % (manual) 0 (0-7); Myelocytes % 0; Promyelocytes % 0; Reactive Lymphocytes 0
[2019-08-14 08:46] LABS: Band Neutrophils % (manual) 20; Lymphocytes % (manual) 2 (10.0-50.0); Metamyelocytes % 2; Monocytes % (manual) 6 (0-12)
[2019-08-14] MEDS ORDERED: SUCCINYLCHOLINE CHLORIDE 20 MG/ML 10ML VIAL IV ONE ×2 (09:19→09:45)
[2019-08-14] MEDS ORDERED: ETOMIDATE (2MG/ML) 20ML VIAL IV ONE ×2 (09:19→09:45)
[2019-08-14] MEDS ORDERED: MIDAZOLAM DRIP 50 mg/50mL 50 ML IV ONE (09:19)
[2019-08-14] MEDS: MIDAZOLAM DRIP 50 mg/50mL 50 ML IV SCH ×3 (09:50→19:45)
[2019-08-14] MEDS: ASPirin 81 mg TAB PO SCH (10:00)
[2019-08-14] MEDS: GEMFIBROZIL 600 MG TAB PO SCH ×2 (10:00→21:40)
--- NOTE | 2019-08-14 10:20 | NUR ---
Admit to ICU from ER on vent DILLON NIXONAadmitted to ICU via rachelrventura on hall monitor, intubated and being bagged by Respiratory Therapist. Patient transfered to bed, connected to mechanical ventilator by therapist, EDY at bedside. Patient connected to ICU monitoring, weighed by bedscale, oriented to Liz Fuentes primary RN, unit, ventilator and sedation. NOTE:
--- NOTE | 2019-08-14 10:20 | NUR ---
Respiratory note: PT JUST ARRIVED IN ICU, TRANSPORT WENT WITHOUT INCIDENT. PT VENTILATED VIA AMBU BAG DURING TRANSPORT. PT PLACED BACK ON RENTAL VENT ADQ 0200 PLUGGED INTO A RED OUTLET AND PROPER O2 SOURCE. AMBU BAG AT BEDSIDE. ALARMS PROPERLY SET, FUNCTIONING, AND AUDIBLE. RN AT BEDSIDE. FIO2 TITRATED TO 30% AFTER REVIEWING ABG RESULTS. RN WILLIAM MADE AWARE OF CHANGES. WILL CONTINUE TO MONITOR ORDERED.
--- NOTE | 2019-08-14 10:42 | NUR ---
DR STEPHEN AT BEDSIDE -[facility] PATIENT - ORDERS RECEIVED.
--- NOTE | 2019-08-14 10:49 | NUR ---
SPOKE TO DR PRADHAN RE: CONSULT FOR REMOVAL OF TUNNELED HD CATHETER - STATES WILL BE ABLE TO REMOVE LATER THIA AFTERNOON.
[2019-08-14] MEDS ORDERED: NOREPINEPHRINE BITARTRATE 32 MG in D5W 5% 218 ML IV SCH (11:00)
--- NOTE | 2019-08-14 11:50 | NUR ---
WOUND CARE NOTE: Wound care into see patient due low Tae score of 12,intubation status and multi skin integrity issue that are noted present on admission. Patient is 59 years old female with admitting diagnosis of Sepsis. Patient is resting in ICU bed in Rm 102. She's intubated, sedated and mechanically ventilated. Patient appears to be in no pain using Parker Escamilla Faces Pain Scale. Patient with history of ESRD, MRSA, Hep C, NE, PTCA. Skin assessment done with the assistance of patient's nurse, CHINEDU Hill. Noted patient's Rt upper chest HD cath site has erythema and mild edema. CHINEDU Hill reported that it is infected and MD to take it off and to place a new one. Multi small, dry intact scabs noted to patient's Rt chin, back and Rt lateral 5th toe, area is clean and dry, left open to air. Patient's sacrum has intact skin with non-blanchable/ slow blanching redness (Stage 1 pressure injury), on reports, patient been weak,lethargic lately. Concepcion care given, applied Z Guard cream and covered sacrum with Opti foam sacral dressing per MD order. Photograph of mentioned skin integrity issue are taken for reference. Repositioned patient for comfort facing her Lt. side, redistributed pressure points with pillows. Patient tolerated skin examination well. CHINEDU Hill at bedside. RECOMMENDATION: Nursing to continue with BID/PRN cleaning and application of Barrier cream to sacrum and perineum per MD order, Dietary consult for low Tae score, frequent turning and repositioning schedule as condition permits, redistribute pressure points with pillows, elevate heels on pillows, continue monitoring by wound care while patient is hospitalized. Addendum: 08/14/19 at 1551 by Torrie Yeh RN Amended: Links added.
[2019-08-14] MEDS ORDERED: ENOXAPARIN SOD 100 MG/1 ML SYRINGE SC ONE (12:00)
--- NOTE | 2019-08-14 12:00 | NUR ---
DR CASTREJON VISITS AND EXAMINES PATIENT-ORDERS RECEIVED.
[2019-08-14] MEDS ORDERED: ENOXAPARIN SOD 80 MG/0.8ML SYRINGE SC SCH (12:03)
--- NOTE | 2019-08-14 12:10 | NUR ---
DR PRADHAN PHONED RE: OR TIME FOR TODAY - ORDER RECEIVED.
[2019-08-14] MEDS ORDERED: PHYTONADIONE (VIT K)10 MG/ML 1ML VIAL SUBCUT ONE (12:15)
[2019-08-14] MEDS: NOREPINEPHRINE BITARTRATE 32 MG in D5W 5% 218 ML IV SCH (12:30)
[2019-08-14] MEDS: PHENYLEPHRINE INJ 80 MG in SODIUM CHL 0.9% 250 ML IV SCH (12:30)
--- NOTE | 2019-08-14 13:40 | NUR ---
PATIENT';S DAUGHTER TANYA JAYSON - SATES SHE WILL COME TO HOSPITAL IN A FEW HOURS. CONDITION REPORT GIVEN ONLY DUE TO NO PASSWORD ESTABLISHED AT PRESENT.
--- NOTE | 2019-08-14 14:15 | NUR ---
CONSENT FOR FFP TRANSFUSION GIVEN PER PATIENT'S DAUGHTER TANYA VIA PHONE WITH 2 WITNESSES.
--- NOTE | 2019-08-14 14:35 | NUR ---
FFP UNIT STARTED.
[2019-08-14] MEDS ORDERED: ROCURONIUM 10MG/ML 10ML VIAL IV ONE (14:45)
[2019-08-14] MEDS ORDERED: KETAMINE HCL 10 ML ONE (14:45)
[2019-08-14] MEDS ORDERED: fentaNYL CITRATE 100 MCG/2 ML VL ONE (14:45)
[2019-08-14] MEDS ORDERED: MIDAZOLAM HCL 1MG/1ML-2 ML VIAL ONE (14:46)
[2019-08-14] MEDS ORDERED: SODIUM CHLORIDE LOCK 10 ML ONE (14:46)
--- NOTE | 2019-08-14 14:55 | NUR ---
PATIENT TAKEN TO OR PER BED WITH PORTABLE O2 - BAGGED PER RT AND OUTBOARD MOTORS EXPERIMENTAL MECHANIC ACCOMPANIED PER RT'S AND RN'S. PRE-OP CHECKLIST COMPLETED.
--- NOTE | 2019-08-14 15:00 | NUR ---
Respiratory note: PT TRANSPORTED TO OR FOR PROCEDURE. PT VENTILATED BY RT VIA AMBU BAG.TRANSPORT WENT WITHOUT INCIDENT.
--- NOTE | 2019-08-14 15:45 | NUR ---
Respiratory note: PT TRANSPORTED TO ICU VIA OR TEAM AND PLACED BACK ON RENTAL VENT # ADQ 0200 PLUGGED INTO A RED OUTLET AND PROPER O2 SOURCE WITH AMBU BAG AT BEDSIDE. BS ARE CLEAR. ALARMS VERIFIED AND AUDIBLE. NO VENT CHANGES ORDERED AT THIS TIME.WILL ENDORSE PT CARE TO NOC RT.DR HENRY AND CHINEDU THOMAS AT BEDSIDE.
--- NOTE | 2019-08-14 15:50 | NUR ---
RETURNED FROM OR PER BED ON PORTABLE O2 AND VENTILATOR AND AIR MOVING TECHNICIAN. DRESSING TO RIGHT CHEST DRY AND INTACT. FFP COMPLETED - SEE TRANSFUSION RECORD.
[2019-08-14 15:59] LABS: Hepatitis B Surface Antibody Negative
[2019-08-14 16:36] LABS: Hepatitis A Total Antibody Negative; Hepatitis B Surface Antigen Negative (Negative)
--- NOTE | 2019-08-14 16:45 | NUR ---
PATIENT TRANSPORTED TO CT FOR CT CHEST - CONSENT FOR CONTRAST SIGNED PER PATIENT'S DAUGHTER. RT AND RN ACCOMPANIED PATIENT WITH PORTABLE O2 AND CONVENTION PLANNER. #20 IV PLACED INTO LEFT AC PER UNDERGROUND DRILL OPERATOR FOR CT WITH CONTRAST.
[2019-08-14 16:57] LABS: Hepatitis B Core Total AB Negative
[2019-08-14] MEDS ORDERED: IOHEXOL 350 MG/ML 100ML IJ ONE (16:59)
[2019-08-14 17:30] LABS: Hepatitis C Antibody Positive (Negative)
--- NOTE | 2019-08-14 18:30 | NUR ---
RICK WELFARE AIDE VISITS AND EXAMINES PATIENT FOR DR LOMBARDI - ORDERS RECEIVED.
--- NOTE | 2019-08-14 18:30 | NUR ---
PATIENT'S DAUGHTER TANYA ARRIVES TO VISITS PATIENT - ALL ADMISSION INFO PATIENT BELONGINGS SENT HIOME WITH PATIENT;S DAUGHTER. PASSWORD SET PER DAUGHTER FOR PATIENT INFORMATION. OBTAINED EXCEPT FOR MED LIST - STATES LIST LIST RECENTLY DUE TO PARAS BUSTILLO AND LIST IN [place]. [place] WILL PHONE [facility] IN AM FOR LIST.
[2019-08-14] MEDS: CLOPIDOGREL BISULFATE 75 MG TAB NG SCH (18:42)
--- NOTE | 2019-08-14 19:30 | NUR ---
ULTRASOUND ULTRASOUND STAFF HERE DOING US OF LOWER LIMBS
--- NOTE | 2019-08-14 20:00 | NUR ---
OPEN NOTES Received patient from CHINEDU Hill Patient is sedated with IV Versed. Intubated, not in any distress. Patient is on IV Neosynephrine - will titrate to keep >65 mmHg as ordered. Both upper and lower limbs cold to touch. Pulses palpable on upper limbs, Lower limbs Doppler used. IV at left shoulder dc'd - occluded. Full assessment done -refer interventions
[2019-08-14] MEDS: ATORVASTATIN 20 MG TAB NG SCH (21:53)
--- NOTE | 2019-08-14 22:00 | NUR ---
TEMP ELEVATED Patient's rectal temp 100.2F Ice packs applied, cool compress on forehead will continue to monitor
[2019-08-14] MEDS: ACETAMINOPHEN 325 MG TAB PO PRN (23:12)
--- NOTE | 2019-08-14 23:15 | NUR ---
TEMP RE-ASSESS Patient's temp now 100.6F despite cooling measures Tylenol given will continue to monitor
[2019-08-15] VITALS (103 sets, daily range): BP systolic 85–131; BP diastolic 47–71
[2019-08-15] MEDS: ACCU-CHEK COMFORT CURVE STRIP VI SCH ×5 (00:03→23:45)
[2019-08-15] MEDS: DEXTROSE (50%) 50ML SYRG IV PRN ×2 (00:07→18:45)
--- NOTE | 2019-08-15 00:12 | NUR ---
BLOOD SUGAR LOW PATIENT'S BLOOD SUGAR = 56 RECHECK DONE = 53 IV DEXTROSE GIVEN PER EMAR WILL RECHECK BLOOD SUGAR IN AN HOUR Addendum: 08/15/19 at 0211 by Yolanda Treviño RN BLOOD SUGAR RECHECKED AT 0200HRS = 119
[2019-08-15] MEDS: PHENYLEPHRINE INJ 80 MG in SODIUM CHL 0.9% 250 ML IV SCH (02:44)
--- NOTE | 2019-08-15 03:00 | NUR ---
Patient bathe/linen change Patient given a sponge bath. Skin integrity assessed for any changes. Linens changed. Patient repositioned for comfort.
--- NOTE | 2019-08-15 03:30 | NUR ---
GANDARA CATHETER CHANGED BLADDER NOTED TO BE DISTENDED GANDARA CATHETER DRAIN ONLY HAS 100ML OF URINE PATIENT IS A DIALYSIS PATIENT BLADDER SCAN DONE - SHOWED >200MLS GANDARA CATHETER FLUSHED STILL NOTHING MUCH COMING OUT GANDARA CATHETER CHANGED FR 16 - STILL NOT MUCH URINE COMING OUT, 10MLS ONLY WILL CONTINUE TO MONITOR
[2019-08-15 04:17] LABS: Basophils # (auto) 0 uL; Basophils % (auto) 0.4 % (0.0-2.0); Eosinophils # (auto) 0.1 uL; Eosinophils % (auto) 1.3 % (0.0-7.0); Hematocrit 32.8 % (36.0-46.0); Hemoglobin 10.5 g/dL (12.2-16.2); Lymphocytes # (auto) 0.2 uL; Lymphocytes % (auto) 4.5 % (10.0-50.0); Mean Corpuscular Hemoglobin 27.5 pg (28.0-32.0); Mean Corpuscular Volume 85.9 fL (80.0-100.0); Monocytes # (auto) 0.1 uL; Monocytes % (auto) 2.8 % (0.0-12.0); Neutrophils # (auto) 4.8 uL; Nucleated Red Blood Cells % 0.1 %; Platelet Count (auto) 105 10^3/uL (140-450); Red Blood Cells 3.82 10^6/uL (4.0-5.20); White Blood Cell 5.2 10^3/uL (4.4-10.8)
[2019-08-15 04:39] LABS: Potassium 4.4 mmol/L (3.5-5.1)
[2019-08-15 04:41] LABS: INR 1.65 (0.9-1.15); Partial Thromboplastin Time 38.6 sec (23.64-32.05)
[2019-08-15 04:46] LABS: Albumin 1.8 g/dL (3.4-5.0); BUN/Creatinine Ratio 16.4; Bilirubin, Total 1.2 mg/dL (0.2-1.0); Calcium 7.7 mg/dL (8.5-10.1); Total Protein 5.6 g/dL (6.4-8.2)
[2019-08-15 04:47] LABS: Red Cell Distribution Width 21.4 % (11.8-14.3)
[2019-08-15] MEDS: InsuLIN REG 1unit/0.01ml Soln (100units/ml) SC SCH ×5 (06:00→23:45)
[2019-08-15] MEDS: MIDAZOLAM DRIP 50 mg/50mL 50 ML IV SCH (06:22)
[2019-08-15] MEDS ORDERED: SODIUM CHL 0.9% 1000 ML BAG XX ONE (07:00)
--- NOTE | 2019-08-15 07:50 | NUR ---
DR PARRA VISITS AND EXAMINES PATIENT - ORDERS RECEIVED. CONTACTED DR CASTREJON FOR CONSULT ORDER FOR PULMO - RECEIVED.
[2019-08-15] MEDS ORDERED: HEPARIN 1,000 UNITS/ml 1ML VIAL ONE (07:57)
--- NOTE | 2019-08-15 08:22 | NUR ---
LAB NOTIFIED DELI MANAGER OF POSITIVE BLD CULTURES ON PRELIM REPORT -DR CASTREJON NOTIFIED OF POSITIVE BLOOD CULTURES - NO NEW ORDERS RECEIVED.
--- NOTE | 2019-08-15 08:35 | NUR ---
LAB NOTIFIED VICE PRESIDENT OF SOFTWARE ENGINEERING OF MRSA URINE - DR CASH NAQVI.
[2019-08-15] MEDS ORDERED: ROCURONIUM 10MG/ML 10ML VIAL IV ONE (08:39)
--- NOTE | 2019-08-15 08:40 | NUR ---
DR PARRA PLACED 20CM LEONEL LINE INTO RIGHT GROIN.
--- NOTE | 2019-08-15 09:00 | NUR ---
SEDATION VACATION HELD DUE TO LEONEL LINE PLACEMENT- GIVEN ROCURONIUM DUE TO RESTLESSNESS WITH LINE INSERTION PER DR PARRA. Addendum: 08/15/19 at 1746 by Liz Fuentes RN Amended: Links added.
[2019-08-15] MEDS: PROPOFOL 100 ML IV SCH (09:42)
[2019-08-15] MEDS: fentaNYL Drip 2500mCg/250mlNS 250 ML IV SCH (09:43)
[2019-08-15] MEDS ORDERED: ENOXAPARIN SOD 100 MG/1 ML SYRINGE SC SCH (10:00)
--- NOTE | 2019-08-15 10:40 | NUR ---
HD TREATMENT STARTED
[2019-08-15] MEDS: NOREPINEPHRINE BITARTRATE 32 MG in D5W 5% 218 ML IV SCH (10:53)
[2019-08-15] MEDS: ENOXAPARIN SOD 30 MG/0.3 ML SYRINGE SC SCH (11:07)
[2019-08-15] MEDS: CLOPIDOGREL BISULFATE 75 MG TAB NG SCH (11:08)
[2019-08-15] MEDS: ASPirin 81 mg TAB PO SCH (11:09)
--- NOTE | 2019-08-15 13:40 | NUR ---
HD HD COMPLETED - 800ML REMOVED. LEVOPHED TITRATED PER SPREAD SHEE.T TO SUSTAIN MAP 65 DURING HD
[2019-08-15] MEDS: PANTOPRAZOLE 40 MG/10 ML VIAL INJ IV SCH (15:09)
--- NOTE | 2019-08-15 15:15 | NUR ---
LEVOPHED AT 130MCG TO SUSTAIN MAP 65 AND SBP 100.
--- NOTE | 2019-08-15 15:30 | NUR ---
FENTANYL INCREASED TO 50 MCG FOR FACIAL GRIMACING NOTED.
[2019-08-15] MEDS: SODIUM CHLORIDE 0.9% 1,000 ML IV SCH (16:30)
--- NOTE | 2019-08-15 20:00 | NUR ---
OPEN NOTES Received patient from CHINEDU Hill Patient on Isolation with positive MRSA in blood,urine and nares. Patient is sedated with IV Propofol and Fentanyl. Withdraws to pain. Pupils both sluggishly reactive to light. Intubated, not in any distress. Spo2 95%, RR 14/min Patient is on IV Neosynephrine - will titrate to keep >65 mmHg as ordered. Temp 100F - ice packs placed, cold compress on forehead, room temp adjusted. Oral care done,repositioned. Full assessment done -refer interventions
--- NOTE | 2019-08-15 21:12 | NUR ---
HOSPITALIST CALLED RE: MRSA NARES TALKED TO OXANA BEJARANO REGARDING MRSA NARES POSITIVE TELEPHONE ORDER RECEIVED : BACTROBAN TO BILATERAL NOSTRIL
[2019-08-15] MEDS: MUPIROCIN 2% OINT 15gm or 22gm EACHNOSTRI SCH (22:04)
[2019-08-15] MEDS: ATORVASTATIN 20 MG TAB NG SCH (22:04)
[2019-08-15] MEDS: LEVOFLOXACIN 250MG 50 ML IV SCH (23:46)
[2019-08-16] VITALS (102 sets, daily range): BP systolic 76–129; BP diastolic 6–70
--- NOTE | 2019-08-16 | NUR ---
RIGHT CHEST POST HD CATHETER SITE DRESSING CHANGED SOME PUS LIKE DRAINAGE NOTED SMALL AMOUNT IODOFORM PACKING DONE SITE COVERED WITH GAUZE AND PAPER TAPE
[2019-08-16] MEDS: SODIUM CHLORIDE 0.9% 1,000 ML IV SCH (00:32)
[2019-08-16] MEDS: PHENYLEPHRINE INJ 80 MG in SODIUM CHL 0.9% 250 ML IV SCH ×3 (01:35→23:25)
--- NOTE | 2019-08-16 04:30 | NUR ---
Patient bathe/linen change Patient cleaned with CHG wipes. Skin integrity assessed for any changes. Linens changed. Patient repositioned for comfort.
[2019-08-16 05:04] LABS: Basophils # (auto) 0 uL; Basophils % (auto) 0.8 % (0.0-2.0); Eosinophils # (auto) 0.2 uL; Eosinophils % (auto) 3.1 % (0.0-7.0); Hematocrit 30.6 % (36.0-46.0); Lymphocytes # (auto) 0.4 uL; Lymphocytes % (auto) 7.6 % (10.0-50.0); Mean Corpuscular Hemoglobin 27.2 pg (28.0-32.0); Mean Corpuscular Hgb Conc. 32.6 g/dL (32.0-36.0); Mean Corpuscular Volume 83.6 fL (80.0-100.0); Monocytes # (auto) 0.3 uL; Monocytes % (auto) 5.2 % (0.0-12.0); Neutrophils # (auto) 4.7 uL; Neutrophils % (auto) 83.3 % (37.0-80.0); Nucleated Red Blood Cells % 0.2 %; Platelet Count (auto) 77 10^3/uL (140-450); Red Blood Cells 3.66 10^6/uL (4.0-5.20); White Blood Cell 5.6 10^3/uL (4.4-10.8)
[2019-08-16] MEDS: PROPOFOL 100 ML IV SCH (05:12)
[2019-08-16 05:28] LABS: Albumin 1.4 g/dL (3.4-5.0); Calcium 7.5 mg/dL (8.5-10.1); Potassium 3.8 mmol/L (3.5-5.1)
[2019-08-16 05:29] LABS: BUN/Creatinine Ratio 14.1
[2019-08-16 05:33] LABS: Bilirubin, Total 1.5 mg/dL (0.2-1.0); Total Protein 5.2 g/dL (6.4-8.2)
[2019-08-16 05:49] LABS: Red Cell Distribution Width 21.1 % (11.8-14.3)
[2019-08-16] MEDS: InsuLIN REG 1unit/0.01ml Soln (100units/ml) SC SCH ×4 (06:00→23:45)
[2019-08-16] MEDS: ACCU-CHEK COMFORT CURVE STRIP VI SCH ×4 (06:16→23:45)
--- NOTE | 2019-08-16 08:15 | NUR ---
MD Dr. Salazar was in unit and placed new orders in system.
--- NOTE | 2019-08-16 09:10 | NUR ---
PHONE CALL Received phone call from patients denisa Divya, correct password provided and updated on patient condition.
[2019-08-16] MEDS: fentaNYL Drip 2500mCg/250mlNS 250 ML IV SCH (09:22)
--- NOTE | 2019-08-16 09:50 | NUR ---
LOVENOX Lovenox held for platelets of 77. Will notify of hold.
[2019-08-16] MEDS: ENOXAPARIN SOD 30 MG/0.3 ML SYRINGE SC SCH (09:52)
[2019-08-16] MEDS: CLOPIDOGREL BISULFATE 75 MG TAB NG SCH (10:00)
[2019-08-16] MEDS: ASPirin 81 mg TAB PO SCH (10:00)
[2019-08-16] MEDS: PANTOPRAZOLE 40 MG/10 ML VIAL INJ IV SCH (10:00)
[2019-08-16] MEDS: MUPIROCIN 2% OINT 15gm or 22gm EACHNOSTRI SCH ×2 (10:01→21:35)
[2019-08-16] MEDS: NOREPINEPHRINE BITARTRATE 32 MG in D5W 5% 218 ML IV SCH (10:53)
--- NOTE | 2019-08-16 10:55 | NUR ---
MD Dr. Oneill at bedside updated on patient condition with no new orders.
--- NOTE | 2019-08-16 11:14 | NUR ---
NUTRITION CONSULT/ASSESSMENT NOTES Please refer to link notes of nutrition screen form filed under the intervention section of the plan of care for further details. Est. Needs: 1750 kcal to 2100 kcal (25-30 kcal/kgBW), 84 gms to 105 gms pro (1.2-1.5 gms/kgBW d/t ESRD on HD). Will continue to monitor pertinent labs and reassess nutrient need prn Thank you for this consult. Addendum: 08/16/19 at [address] Amended: Links added.
--- NOTE | 2019-08-16 13:30 | NUR ---
MD Dr. Davey at bedside updated on patient condition by Divya CHE, who is covering this RN, with new orders to turn off sedation and if needed use Precedex per protocol. Will continue to monitor patient closely.
--- NOTE | 2019-08-16 14:45 | NUR ---
CONSENT Attempted to obtain consent for ROSALBA patient daughter Divya states " will not give consent until she speaks to MD." NEUROPSYCHOLOGY MEDICAL CONSULTANT Mary Harvey aware and states "she will call patients daughter Divya;" number given to NEUROPSYCHOLOGY MEDICAL CONSULTANT.
--- NOTE | 2019-08-16 15:00 | NUR ---
MANAGER ENVIRONMENTAL MANAGER ENVIRONMENTAL Mary Harvey called and stating "spoke to patients daughter Divya and she is not consenting to ROSALBA secondary to she is more concern of the medications she is allergic to and would like us to get medical records from [facility]."
--- NOTE | 2019-08-16 15:25 | NUR ---
MD Received phone call from Dr. Oneill stating " that he spoke to daughter Divya and that she is giving consent for the ROSALBA procedure this afternoon." MD is unable to come and sign consent, this RN to call and get consent over the phone.
--- NOTE | 2019-08-16 15:30 | NUR ---
CONSENT Obtained consent for Transesophageal echocardiography(ROSALBA) from daughter Divya Trujillo and witnessed by Ketty CHE.
--- NOTE | 2019-08-16 15:40 | NUR ---
END MATCHER END MATCHER Mary Harvey aware of consent obtained for ROSALBA. Will notify Dr. Moseley/Dr. Calderon.
--- NOTE | 2019-08-16 19:15 | NUR ---
Opening notes Assumed care, laying on bed on mod high back rest, off sedation since this PM, still unable to open her eyes, on ventilator, SPO2 92%, PIV's patent and intact, RIJ TLC infusing NS @ 60ml/hr and neosynephrine @ 80 mcg/min, neal catheter intact, oliguria noted (dialysis pt), dressings on chest intact. Bed in lowest position with side rails up, bed alarm on. Will continue care and monitoring.
[2019-08-16] MEDS: ATORVASTATIN 20 MG TAB NG SCH (21:35)
--- NOTE | 2019-08-16 23:22 | NUR ---
Family at bedside, updated on pt's status and POC, verbalized understanding.
[2019-08-17] VITALS (102 sets, daily range): BP systolic 96–144; BP diastolic 45–70
[2019-08-17 04:26] LABS: Chloride 112 mmol/L (98-107); Potassium 3.8 mmol/L (3.5-5.1); Sodium 146 mmol/L (136-145)
[2019-08-17 04:28] LABS: Basophils # (auto) 0.1 uL; Basophils % (auto) 0.6 % (0.0-2.0); Eosinophils # (auto) 0.1 uL; Hemoglobin 9.7 g/dL (12.2-16.2); Lymphocytes # (auto) 0.5 uL; Monocytes # (auto) 0.3 uL
[2019-08-17 04:30] LABS: Eosinophils % (auto) 0.9 % (0.0-7.0); Hematocrit 29.9 % (36.0-46.0); Lymphocytes % (auto) 6.6 % (10.0-50.0); Mean Corpuscular Hemoglobin 27.1 pg (28.0-32.0); Mean Corpuscular Hgb Conc. 32.6 g/dL (32.0-36.0); Mean Corpuscular Volume 83.4 fL (80.0-100.0); Monocytes % (auto) 3.1 % (0.0-12.0); Neutrophils # (auto) 7.4 uL; Neutrophils % (auto) 88.8 % (37.0-80.0); Nucleated Red Blood Cells % 0.1 %; Platelet Count (auto) 65 10^3/uL (140-450); Red Blood Cells 3.58 10^6/uL (4.0-5.20); White Blood Cell 8.3 10^3/uL (4.4-10.8)
[2019-08-17 04:34] LABS: Red Cell Distribution Width 21.3 % (11.8-14.3)
[2019-08-17 04:39] LABS: Alanine Aminotransferase 12 U/L (13-56); Albumin 1.4 g/dL (3.4-5.0); Alkaline Phosphatase 243 U/L (45-117); Anion Gap 9 (5-15); Aspartate Aminotransferase 31 U/L (15-37); Bilirubin, Total 2.1 mg/dL (0.2-1.0); Blood Urea Nitrogen 63 mg/dL (7-18); Calcium 7.6 mg/dL (8.5-10.1); Carbon Dioxide 25 mmol/L (21-32); GFR African American 14 mL/min; GFR Non-African American 12 mL/min; Glucose 75 mg/dL (74-106); Total Protein 5.3 g/dL (6.4-8.2)
[2019-08-17 04:47] LABS: CRP High Sensitivity > 19 mg/dL (< 0.3)
--- NOTE | 2019-08-17 05:00 | NUR ---
Wound care Cleansed wounds in the right IJ, right breast and right upper chest. Iodoform strip imbedded in the right upper chest wound and covered with gauze and paper tape, skin tear in the right breast covered with optifoam, right IJ noted to have purulent discharge, covered with gauze and secured with paper tape.
--- NOTE | 2019-08-17 05:15 | NUR ---
Morning care/ oral hygiene Morning care done, skin assessed for any changes. Linens changed, repositioned for comfort. Addendum: 08/17/19 at 0525 by Cole Galicia RN Oral hygiene done, moisturizer applied to lips.
[2019-08-17] MEDS: ACCU-CHEK COMFORT CURVE STRIP VI SCH ×4 (05:32→23:58)
[2019-08-17] MEDS: InsuLIN REG 1unit/0.01ml Soln (100units/ml) SC SCH ×4 (06:00→23:58)
[2019-08-17] MEDS ORDERED: SODIUM CHL 0.9% 1000 ML BAG XX ONE (07:00)
[2019-08-17] MEDS: fentaNYL Drip 2500mCg/250mlNS 250 ML IV SCH (07:37)
[2019-08-17] MEDS: PROPOFOL 100 ML IV SCH (07:37)
--- NOTE | 2019-08-17 08:00 | NUR ---
OPEN RECEIVED REPORT FROM NIGHT RN, ROSALIE. ASSUMED CARE OF ICU PATIENT, FULL CODE STATUS. PATIENT OFF SEDATION, YET STILL UNRESPONSIVE TO STIMULI AT THIS TIME. UNABLE TO FOLLOW COMMANDS AT THIS TIME. PATIENT ON VENT #8.0 ETT, 23 CM AT LIP. AC 14, 500 VT, 30% FIO2, PEEP +5. NGT TO RIGHT JASON, CLAMPED, PLACEMENT VERIFIED. GANDARA TO GRAVITY. PATIENT ON UMA-SYN. GTT AT 20 MCG/MIN AT THIS TIME. SEE IV FLOW SHEET FOR ANY TITRATIONS MADE. CONTINUE CARE. WILL CONTINUE TO TURN PATIENT Q2HRS AND PRN. OFF LOADING PRESSURE AREAS WITH PILLOWS. SCD'S TO LESA BLACKMAN. SEE QUARTZ MOUNTER FOR FURTHER PATIENT INFORMATION.
--- NOTE | 2019-08-17 09:45 | NUR ---
DR. DUNHAM AT BEDSIDE: UPDATE MD UPDATED ON PT'S STATUS, ABG AND POC FOR TODAY. WAITING FOR PATIENT TO WAKE UP AND FOLLOW COMMANDS. SEDATION STILL REMAINS OFF AT THIS TIME. ONCE PATIENT IS AWAKE, MAY DO CPAP TRIAL PER MD. CONTINUE CARE.
[2019-08-17] MEDS: ENOXAPARIN SOD 30 MG/0.3 ML SYRINGE SC SCH (10:00)
[2019-08-17] MEDS: MUPIROCIN 2% OINT 15gm or 22gm EACHNOSTRI SCH ×2 (10:15→21:48)
[2019-08-17] MEDS: CLOPIDOGREL BISULFATE 75 MG TAB NG SCH (10:44)
[2019-08-17] MEDS: PANTOPRAZOLE 40 MG/10 ML VIAL INJ IV SCH (10:44)
[2019-08-17] MEDS: ASPirin 81 mg TAB PO SCH (10:44)
[2019-08-17] MEDS: NOREPINEPHRINE BITARTRATE 32 MG in D5W 5% 218 ML IV SCH (10:44)
--- NOTE | 2019-08-17 12:45 | NUR ---
BS 64: HYPOGLYCEMIA PATIENT GIVEN X1 AMP D50 IVP. PATIENT REMAINS NPO AND NS LOCKED AT THIS TIME. WILL RECHECK BS AT 1400. CONTINUE CARE. TO BE INFORMED.
[2019-08-17] MEDS: DEXTROSE (50%) 50ML SYRG IV PRN (12:54)
--- NOTE | 2019-08-17 13:00 | NUR ---
CHANGE OF SERVICES: PER DR. CASH LIANG CHANGED SERVICES OVER TO DR. ROCKWELL. CONTINUE CARE.
--- NOTE | 2019-08-17 13:40 | NUR ---
DR. SANDOVAL ASSUMING PATIENT CARE AT THIS TIME. CONTINUE CARE.
--- NOTE | 2019-08-17 14:08 | NUR ---
REASSESS BS 117 WILL CONTINUE TO MONITOR.
--- NOTE | 2019-08-17 14:12 | NUR ---
DR. CASTREJON AT BEDSIDE: ORDERS MD UPDATED ON PT'S STATUS, LABS AND POC FOR TODAY. ORDERS GIVEN AND TO BE CARRIED OUT. INFORMED MD THAT PT'S BS WAS 64 BUT HAS NOW GONE UP TO 117. MD VERBALIZES UNDERSTANDING. OTHER ORDERS GIVEN AND TO BE CARRIED OUT. CONTINUE CARE.
[2019-08-17] MEDS ORDERED: VANCOMYCIN 1GM/250ML 250 ML IV ONE ×2 (16:00)
--- NOTE | 2019-08-17 16:04 | NUR ---
assessment Patient is a 59 year old female on a vent. Per patients daughter Divya prior to admission patient lived home with her and functioned independently. Per Divya patient had no need for DME. Per Divya patient has had diabetes for 10 years or so, but it has been controlled. Divya informed me patient has had other health issues that brought her to the hospital. I informed Divya that patients post discharge needs to be determined after extubation and prior to discharge. Divya verbalized understanding. Addendum: 08/17/19 at 1608 by Pia COLON Amended: Links added.
--- NOTE | 2019-08-17 17:30 | NUR ---
HD COMPLETED HD RN REMOVED -3 LITERS FROM PATIENT. CURRENT HR 102, BP 122/56 AT THIS TIME. CURRENT UMA-SYN. GTT AT 40 MCG/MIN. PATIENT TOLERATED WELL. CONTINUE CARE.
--- NOTE | 2019-08-17 19:30 | NUR ---
Temp 100.8, cooling measures done
--- NOTE | 2019-08-17 20:10 | NUR ---
Dr. Plummer called back, updated on pt's status and latest labs, plt 65 and that the pharmacy called to verify with MD if lovenox and aspirin will be continued, MD ordered to continue current meds. MD also ordered head CT without contrast for tomorrow as previously reported by day shift RN. Will carry out an order after being read back and verified.
[2019-08-17] MEDS ORDERED: EPOETIN ALFA 4,000 UNIT/ML VL SC ONE (21:00)
[2019-08-17] MEDS: ATORVASTATIN 20 MG TAB NG SCH (21:48)
--- NOTE | 2019-08-17 23:15 | NUR ---
Off Neosynephrine, SBP 110's-130's, HR 90's, MAP maintained above 65
[2019-08-17] MEDS ORDERED: LEVOFLOXACIN 500MG 0 ML IV ONE (23:16)
[2019-08-17] MEDS: LEVOFLOXACIN 250MG 50 ML IV SCH (23:22)
[2019-08-18] VITALS (91 sets, daily range): BP systolic 92–143; BP diastolic 45–70
--- NOTE | 2019-08-18 05:00 | NUR ---
Patient bathe/linen change/ Oral care Patient given complete bath. Skin integrity assessed for any changes. Linens changed. Patient repositioned for comfort. Oral care done
[2019-08-18 05:04] LABS: Basophils # (auto) 0 uL; Basophils % (auto) 0.5 % (0.0-2.0); Eosinophils # (auto) 0.1 uL; Eosinophils % (auto) 1.4 % (0.0-7.0); Hematocrit 27.6 % (36.0-46.0); Lymphocytes # (auto) 0.6 uL; Lymphocytes % (auto) 7.8 % (10.0-50.0); Mean Corpuscular Hemoglobin 27.2 pg (28.0-32.0); Mean Corpuscular Hgb Conc. 32.8 g/dL (32.0-36.0); Monocytes # (auto) 0.2 uL; Monocytes % (auto) 2.7 % (0.0-12.0); Neutrophils # (auto) 6.5 uL; Neutrophils % (auto) 87.6 % (37.0-80.0); Nucleated Red Blood Cells % 0.1 %; Platelet Count (auto) 47 10^3/uL (140-450); Red Blood Cells 3.32 10^6/uL (4.0-5.20); Red Cell Distribution Width 20.7 % (11.8-14.3); White Blood Cell 7.5 10^3/uL (4.4-10.8)
[2019-08-18 05:17] LABS: Albumin 1.3 g/dL (3.4-5.0); BUN/Creatinine Ratio 12.4; Calcium 7.4 mg/dL (8.5-10.1); Magnesium 2.2 mg/dL (1.6-2.6); Potassium 3.5 mmol/L (3.5-5.1)
[2019-08-18 05:20] LABS: Bilirubin, Total 2.6 mg/dL (0.2-1.0); Total Protein 5.4 g/dL (6.4-8.2)
--- NOTE | 2019-08-18 05:27 | NUR ---
Wound care Wound dressing in the right upper chest done per wound care protocol.
--- NOTE | 2019-08-18 05:28 | NUR ---
Temp rechecked 99.1
[2019-08-18] MEDS: InsuLIN REG 1unit/0.01ml Soln (100units/ml) SC SCH ×3 (06:00→17:44)
[2019-08-18] MEDS: ACCU-CHEK COMFORT CURVE STRIP VI SCH ×3 (06:28→17:44)
--- NOTE | 2019-08-18 07:45 | NUR ---
ASSESS- PT. LYING IN BED ON VENT SIZE #8.0, AC-14, TV-500, PEEP-5, FIO2-30%. PT. HAS HYPOACTIVE GAG/COUGH REFLEX. PUPILS 3 AND SLUGGISH LESA. EYES REMAIN CLOSED. RESPONDS TO PAINFUL/TACTILE STIMULI. NO SEDATION. DOES NOT FOLLOW ANY COMMANDS. NO MOVEMENT OF ARMS LESA. PT. IS MOVING FT. LESA. LT. HAND MITTEN IN PLACE. ABD. SOFT, ROUND. BOWEL SOUNDS HYPOACTIVE ALL FOUR QUADRANTS. NGT RT. NARE INTACT, CLAMPED. NPO STATUS. NO EMESIS. F/C TO GRAVITY WITH CLEAR DK. CECIL URINE. TLC RT. IJ INTACT. BELINDA CATHETER RT. FEMORAL INTACT. RT. UPPER CHEST WITH OPEN WOUND WITH DSG. D/I. RT. SIDE OF NECK WITH DSG. D/I. RT. SIDE OF BREAST WITH SKIN TEAR. RECTAL PROBE IN PLACE, TEMP 99.3. ON CONTACT ISOLATION FOR MRSA. RADIAL PULSES WEAK, PALPABLE LESA. DORSALIS PEDAL PULSES WEAK, PALPABLE LESA. SCD'S LESA. LE. 1 PLUS NON-PITTING EDEMA ARMS/HANDS LESA. OFF VASOPRESSORS. SBP 100'S TO ONE TEENS.
[2019-08-18] MEDS: PROPOFOL 100 ML IV SCH (09:22)
[2019-08-18] MEDS: fentaNYL Drip 2500mCg/250mlNS 250 ML IV SCH (09:22)
--- NOTE | 2019-08-18 09:25 | NUR ---
DR. PARRA Provider/Hospitalist at bedside. GAVE UPDATE ON PT. NEW ORDERS RECEIVED.
[2019-08-18] MEDS: ASPirin 81 mg TAB PO SCH (09:39)
[2019-08-18] MEDS: ENOXAPARIN SOD 30 MG/0.3 ML SYRINGE SC SCH (09:39)
[2019-08-18] MEDS: PANTOPRAZOLE 40 MG/10 ML VIAL INJ IV SCH (09:39)
[2019-08-18] MEDS: CLOPIDOGREL BISULFATE 75 MG TAB NG SCH (09:39)
[2019-08-18] MEDS: MUPIROCIN 2% OINT 15gm or 22gm EACHNOSTRI SCH ×2 (09:40→22:09)
--- NOTE | 2019-08-18 10:42 | NUR ---
DR. DELANEY Provider/Hospitalist at bedside. GAVE UPDATE ON PT.
--- NOTE | 2019-08-18 10:48 | NUR ---
PT. TAKEN VIA BED TO RADIOLOGY WITH CHINEDU NESBITT AND RT DISHA BOSWELL PT. ON DIGITAL MARKETING LEAD, PULSE OX FOR CT HEAD WITHOUT CONTRAST AND CT LUMBAR/THORACIC SPINE WITHOUT CONTRAST. VSS. VASOPRESSORS OFF.
--- NOTE | 2019-08-18 10:48 | NUR ---
PT WAS TRANSPORTED TO CT WITH NO INCIDENT REPORTED, RETURN BACK AND PT WAS PLACED ON VENT. SX LARGE AMOUNTS OF THICK BROWN SECRETIONS. SPO2 100%.
--- NOTE | 2019-08-18 10:59 | NUR ---
Nutrition Follow-up Notes Wt.: 74.2 kg today. Pt's in isolation room, intubated, non-sedated, no immediate family member at bedside except for RN during rounds this morning. Pt had dialysis yesterday, remains NPO, no order for alternate nutrition support yet at this time, per nursing. Est. Needs: 1750 kcal to 2100 kcal (25-30 kcal/kgBW), 84 gms to 105 gms pro (1.2-1.5 gms/kgBW d/t ESRD on HD). Will continue to monitor pertinent labs and reassess nutrient need prn Labs: BUN 42 H, Cr 3.39 H, Ca 7.4 L, Tot sarah 2.6 H, ALP 236 H, Tpro 5.4 L, Alb 1.3 L Skin: Tae scale 12, high risk, pt's right lateral chest blister/skin tear per qual field manager. Pls refer to latest cotton agent's notes for details re: tx plans. GI: Pt's no bowel activity since 09/13/18 per qual field manager. PES: Increased nutrient needs r/t acute/chronic medical condition aeb intubated, sedated, severe hypoalbuminemia, ESRD on HD, NPO. Altered nutrition related lab values r/t current/chronic medical condition aeb hyperchloremia, elev. renal labs, ALP, hyperbilirubinemia, hypocalcemia and severe hypoalbuminemia Will continue to monitor NPO status, skin status, pertinent labs and weight trend. F/u in 2 to 3 days. Rec.: 1.) If still NPO in next 36 hrs, consider alternate nutrition / EN support preferred with formula choice of Nephro Carb Steady @ 45 ml/hr goal rate as tolerated. 2.) If Albumin continues trending down, consider Prostat 1 pkt BID. 3.) Consider daily Nephrovite and Asc acid 500 mgs BID. 4.) Advance gradually to oral diet when medically appropriate. 5.) Refer to RD for further nutrition educ. and weight monitoring upon discharge. 6.) Continue current plan of care.
--- NOTE | 2019-08-18 11:15 | NUR ---
PT. RETURNED FROM CT, RT PLACED PT. BACK ON VENT, ATTACHED TO BOOKKEEPING TEACHER. PT. HAD MOD. SIZE LIQUID/LOOSE DK. BROWN STOOL. ANA M CARE DONE AND LINENS CHANGED.
[2019-08-18] MEDS: CLINDAMYCIN 600MG IV 50 ML IV SCH ×2 (13:47→22:09)
[2019-08-18] MEDS: ACETYLCYSTEINE 20%(200MG/ML) SOL 4ML NEB SCH ×3 (14:00→22:06)
[2019-08-18] MEDS: ALBUTEROL SULF 2.5 MG/0.5ML(0.5%) NEB SOLN NEB SCH ×3 (14:00→22:05)
--- NOTE | 2019-08-18 14:00 | NUR ---
PT. RESTING ON VENT, NO SIGNS OF DISTRESS OR DISCOMFORT. NO SEDATION. HAS NOT WOKEN UP YET, DOES NOT FOLLOW ANY COMMANDS. EYES REMAIN CLOSED. MOVING FT. LESA. AND LOWER LEGS SOME LESA. NO MOVEMENT OF ARMS SEEN. PT. HAS GAG/COUGH REFLEX. RESPONDS TO PAINFUL/TACTILE STIMULI.
--- NOTE | 2019-08-18 21:25 | NUR ---
Received a call from art Stokes, updated on pt's status and POC after obtaining a password, verbalized understanding.
[2019-08-18] MEDS: ATORVASTATIN 20 MG TAB NG SCH (22:10)
[2019-08-19] VITALS (60 sets, daily range): BP systolic 111–152; BP diastolic 48–73
[2019-08-19] MEDS: ACETYLCYSTEINE 20%(200MG/ML) SOL 4ML NEB SCH ×6 (02:23→22:01)
[2019-08-19] MEDS: ALBUTEROL SULF 2.5 MG/0.5ML(0.5%) NEB SOLN NEB SCH ×6 (02:23→22:01)
--- NOTE | 2019-08-19 04:00 | NUR ---
Patient bathe/linen change Patient given complete bath. Skin integrity assessed for any changes. Linens and gown changed. Patient repositioned for comfort.
--- NOTE | 2019-08-19 04:30 | NUR ---
Wound care All dressings in the right chest and breast changed per wound care protocol.
[2019-08-19 05:21] LABS: INR 1.22 (0.9-1.15)
[2019-08-19] MEDS: ACCU-CHEK COMFORT CURVE STRIP VI SCH ×5 (06:00→23:53)
[2019-08-19] MEDS: InsuLIN REG 1unit/0.01ml Soln (100units/ml) SC SCH ×5 (06:00→23:53)
[2019-08-19] MEDS: CLINDAMYCIN 600MG IV 50 ML IV SCH ×3 (06:42→21:24)
--- NOTE | 2019-08-19 07:55 | NUR ---
ASSESS- PT. LYING IN BED ON VENT SIZE # 8.0 ET, 23 AT THE LIP, AC-14, TV-500, PEEP-5, FIO2-30%. LUNGS CLEAR LESA. INSPIRATORY AND EXPIRATORY. PT. HAS HYPOACTIVE GAG/COUGH REFLEX. RESPONDS TO PAINFUL/TACTILE STIMULI. NO SEDATION. DOES NOT FOLLOW ANY COMMANDS. PUPILS 3 AND SLUGGISH LESA. PT. STARTING TO OPEN EYES, NO TRACKING. MOVING LEGS AND FT. LESA. NO MOVEMENT OF ARMS OR HANDS SEEN. NGT RT. NARE CLAMPED. PT. IS NPO. ABD. SOFT, FLAT. BOWEL SOUNDS HYPOACTIVE ALL FOUR QUADRANTS. F/C TO GRAVITY WITH CLEAR DK. CECIL URINE. RADIAL PULSES WEAK, PALPABLE LESA. DORSALIS PEDAL PULSES WEAK, PALPABLE LESA. SCD'S LESA. LE. 1 PLUS EDEMA LESA. ARMS AND HANDS LESA. 1 PLUS NON-PITTING EDEMA FT. LESA. RT. UPPER CHEST WITH OPEN WOUND WITH DSG. D/I. RT. SIDE OF NECK WITH OPEN WOUND WITH DSG. D/I. RT. BREAST WITH SKIN TEAR WITH OPTIFOAM DSG. D/I. BELINDA CATHETER RT. FEMORAL INTACT. TLC RT. IJ INTACT. RECTAL PROBE IN PLACE. PT. ON CONTACT ISOLATION.
--- NOTE | 2019-08-19 09:32 | NUR ---
DR. DELANEY Provider/Hospitalist at bedside. GAVE UPDATE ON PT.
[2019-08-19] MEDS: MUPIROCIN 2% OINT 15gm or 22gm EACHNOSTRI SCH ×2 (09:56→21:25)
[2019-08-19] MEDS: CLOPIDOGREL BISULFATE 75 MG TAB NG SCH (09:56)
[2019-08-19] MEDS: PANTOPRAZOLE 40 MG/10 ML VIAL INJ IV SCH (09:56)
[2019-08-19] MEDS: ENOXAPARIN SOD 30 MG/0.3 ML SYRINGE SC SCH (09:57)
[2019-08-19] MEDS: ASPirin 81 mg TAB PO SCH (09:57)
[2019-08-19 10:00] LABS: Basophils # (auto) 0 uL; Basophils % (auto) 0.3 % (0.0-2.0); Eosinophils # (auto) 0.2 uL; Eosinophils % (auto) 1.6 % (0.0-7.0); Hematocrit 27.2 % (36.0-46.0); Lymphocytes # (auto) 0.7 uL; Lymphocytes % (auto) 6.7 % (10.0-50.0); Mean Corpuscular Hemoglobin 27.1 pg (28.0-32.0); Mean Corpuscular Hgb Conc. 33.1 g/dL (32.0-36.0); Mean Corpuscular Volume 82.1 fL (80.0-100.0); Monocytes # (auto) 0.2 uL; Monocytes % (auto) 2.4 % (0.0-12.0); Neutrophils # (auto) 9.1 uL; Nucleated Red Blood Cells % 0.2 %; Platelet Count (auto) 36 10^3/uL (140-450); Red Blood Cells 3.32 10^6/uL (4.0-5.20); Red Cell Distribution Width 21.2 % (11.8-14.3); White Blood Cell 10.3 10^3/uL (4.4-10.8)
--- NOTE | 2019-08-19 10:00 | NUR ---
PLATELETS 36 THIS AM. HELD BLOOD THINNERS ORDERED.
[2019-08-19 10:22] LABS: Albumin 1.4 g/dL (3.4-5.0); Calcium 7.5 mg/dL (8.5-10.1); Potassium 3.9 mmol/L (3.5-5.1)
[2019-08-19 10:25] LABS: BUN/Creatinine Ratio 13.6; Bilirubin, Total 2.8 mg/dL (0.2-1.0); Total Protein 5.3 g/dL (6.4-8.2)
--- NOTE | 2019-08-19 13:03 | NUR ---
DR. PARRA Provider/Hospitalist at bedside. GAVE UPDATE ON PT. NEW ORDERS RECEIVED.
[2019-08-19] MEDS: Nepro With Carb Steady 1 Liter Bottle NG SCH (13:45)
--- NOTE | 2019-08-19 13:45 | NUR ---
NGT placement verified by aspiration of stomach contents, residual check, or air auscultation. Tube feeding started per MD order. STARTED NEPHRO AT 10 CC/HR.
--- NOTE | 2019-08-19 14:20 | NUR ---
DR. SANDOVAL Provider/Hospitalist at bedside. GAVE UPDATE ON PT. NEW ORDERS RECEIVED.
--- NOTE | 2019-08-19 14:45 | NUR ---
RECTAL TEMP 100.0. REMOVED SHEET. PLACED ICE PACKS LESA. AXILLA.
--- NOTE | 2019-08-19 15:00 | NUR ---
PT. REMAINS OFF SEDATION. OPENING EYES SPONTANEOUSLY, NO TRACKING. PUPILS 3 AND SLUGGISH LESA. RESPONDS TO PAINFUL/TACTILE STIMULI. MOVING LEGS AND FT. LESA. NO MOVEMENT OF ARMS OR HANDS SEEN.
--- NOTE | 2019-08-19 16:30 | NUR ---
RECTAL TEMP DECREASED TO 99.1. MONITORING TEMP.
--- NOTE | 2019-08-19 17:46 | NUR ---
PT. WAS RETYPED AND SCREENED TODAY. STARTED 1 PACK OF PLATELETS VIA TLC RT. IJ. CONSENT GIVEN PREVIOUSLY.
--- NOTE | 2019-08-19 20:00 | NUR ---
SHIFT OPENING NOTE RECEIVED PATIENT INTUBATED. NO SEDATION. PATIENT MOVES HEAD AND FEET OCCASIONALLY. DOES NOT OPEN EYES OR FOLLOW COMMANDS. ET TUBE SIZE 8, 21 AT THE LIP. AC 14, TV 500, PEEP 5, FI02 30%. NG TO RIGHT CARE. NEPHRO WITH CARDSTEADY RUNNING AT 10 ML/H, NO RESIDUALS NOTED. GANDARA CATH IN PLACE, NO URINE OUTPUT YET. BELINDA CATHETER TO THE RIGHT FEMORAL. RIGHT IJ 3 LUMEN TKO. PHYSICAL ASSESSMENT COMPLETED, SEE INTERVENTIONS. WILL CLOSELY MONITOR.
[2019-08-19] MEDS: ATORVASTATIN 20 MG TAB NG SCH (21:24)
[2019-08-20] VITALS (64 sets, daily range): BP systolic 92–173; BP diastolic 47–74
[2019-08-20] MEDS: ALBUTEROL SULF 2.5 MG/0.5ML(0.5%) NEB SOLN NEB SCH ×6 (02:18→21:57)
[2019-08-20] MEDS: ACETYLCYSTEINE 20%(200MG/ML) SOL 4ML NEB SCH ×6 (02:18→21:57)
--- NOTE | 2019-08-20 03:40 | NUR ---
MORNING HYGIENE CARE PARTIAL BED BATH PERFORMED. ANA M AREA CLEANSED. ORAL CARE DONE. PARTIAL LINEN CHANGED. TOLERATED IT WELL.
--- NOTE | 2019-08-20 03:45 | NUR ---
RECTAL TEMP 100.4 ICE PACKS APPLIED. TYLENOL GIVEN.
[2019-08-20] MEDS: ACETAMINOPHEN 325 MG TAB PO PRN (03:48)
[2019-08-20 04:25] LABS: Basophils % (auto) 0.5 % (0.0-2.0); Eosinophils # (auto) 0.2 uL; Lymphocytes # (auto) 0.6 uL; Monocytes # (auto) 0.2 uL
[2019-08-20 04:28] LABS: Basophils # (auto) 0.1 uL; Eosinophils % (auto) 1.6 % (0.0-7.0); Hematocrit 27.9 % (36.0-46.0); Hemoglobin 9.3 g/dL (12.2-16.2); Lymphocytes % (auto) 6.2 % (10.0-50.0); Mean Corpuscular Hemoglobin 27.3 pg (28.0-32.0); Mean Corpuscular Hgb Conc. 33.3 g/dL (32.0-36.0); Mean Corpuscular Volume 81.9 fL (80.0-100.0); Monocytes % (auto) 2.3 % (0.0-12.0); Neutrophils # (auto) 8.8 uL; Neutrophils % (auto) 89.4 % (37.0-80.0); Nucleated Red Blood Cells % 0.1 %; Platelet Count (auto) 47 10^3/uL (140-450); Red Blood Cells 3.41 10^6/uL (4.0-5.20); White Blood Cell 9.8 10^3/uL (4.4-10.8)
[2019-08-20 04:51] LABS: Potassium 4.2 mmol/L (3.5-5.1)
[2019-08-20 04:56] LABS: Albumin 1.5 g/dL (3.4-5.0); BUN/Creatinine Ratio 13.5; Bilirubin, Total 2.9 mg/dL (0.2-1.0); Calcium 7.5 mg/dL (8.5-10.1); Total Protein 6.1 g/dL (6.4-8.2)
[2019-08-20] MEDS: CLINDAMYCIN 600MG IV 50 ML IV SCH (05:00)
[2019-08-20] MEDS: InsuLIN REG 1unit/0.01ml Soln (100units/ml) SC SCH ×3 (05:01→17:17)
[2019-08-20] MEDS: ACCU-CHEK COMFORT CURVE STRIP VI SCH ×3 (05:01→17:20)
[2019-08-20 05:07] LABS: Red Cell Distribution Width 20.9 % (11.8-14.3)
--- NOTE | 2019-08-20 05:45 | NUR ---
HEMODIALYSIS NURSE AT BEDSIDE
[2019-08-20] MEDS ORDERED: SODIUM CHL 0.9% 1000 ML BAG XX ONE (07:00)
--- NOTE | 2019-08-20 07:15 | NUR ---
END OF SHIFT REPORT GIVEN AND CARE ENDORSED TO MARTINA CHE
--- NOTE | 2019-08-20 08:04 | NUR ---
store facility technician at bedside. Addendum: 08/20/19 at 0804 by Marley Omalley RN RN Wrong patient
[2019-08-20] MEDS: CLOPIDOGREL BISULFATE 75 MG TAB NG SCH (10:00)
[2019-08-20] MEDS: ASPirin 81 mg TAB PO SCH (10:00)
[2019-08-20] MEDS: ENOXAPARIN SOD 30 MG/0.3 ML SYRINGE SC SCH (10:00)
[2019-08-20] MEDS: MUPIROCIN 2% OINT 15gm or 22gm EACHNOSTRI SCH (10:02)
[2019-08-20] MEDS: PANTOPRAZOLE 40 MG/10 ML VIAL INJ IV SCH (10:02)
[2019-08-20] MEDS ORDERED: VANCOMYCIN 500 MG in D5W 5% 100 ML IV ONE ×2 (12:00→14:00)
--- NOTE | 2019-08-20 12:09 | NUR ---
Nutrition Follow-up Notes Wt.: 67.9 kg Pt's in isolation room, intubated, non-sedated, no immediate family member at bedside except for RN during rounds this morning. Pt had dialysis today, remains NPO, EN feeds on hold for ECHo per RN. pt was on EN support with Nephro carb steady @ 10 ml/hr. Est. Needs: 1750 kcal to 2100 kcal (25-30 kcal/kgBW), 84 gms to 105 gms pro (1.2-1.5 gms/kgBW d/t ESRD on HD). Will continue to monitor pertinent labs and reassess nutrient need prn Labs: BUN 65 H, CREAT 4.83 H, CA 7.5 L, ALB 1.5 L, GLU 107 H, LESA 2.9 H Skin: Tae scale 12, high risk, pt's right lateral chest blister/skin tear per clinical documentation manager. Pls refer to latest hot wound spring production supervisor's notes for details re: tx plans. GI: Pt's no bowel activity since 09/13/18 per clinical documentation manager. PES: Increased nutrient needs r/t acute/chronic medical condition aeb intubated, sedated, severe hypoalbuminemia, ESRD on HD, NPO. Altered nutrition related lab values r/t current/chronic medical condition aeb hyperchloremia, elev. renal labs, ALP, hyperbilirubinemia, hypocalcemia and severe hypoalbuminemia Will continue to monitor NPO status, skin status, pertinent labs and weight trend. F/u in 2 to 3 days. Rec.: 1.) If still NPO in next 36 hrs, consider alternate nutrition / EN support preferred with formula choice of Nephro Carb Steady @ 45 ml/hr goal rate as tolerated. 2.) If Albumin continues trending down, consider Prostat 1 pkt BID. 3.) Consider daily Nephrovite and Asc acid 500 mgs BID. 4.) Advance gradually to oral diet when medically appropriate. 5.) Refer to RD for further nutrition educ. and weight monitoring upon discharge. 6.) Continue current plan of care.
[2019-08-20] MEDS ORDERED: EPOETIN ALFA 4,000 UNIT/ML VL SC ONE (21:00)
[2019-08-20] MEDS: ATORVASTATIN 20 MG TAB NG SCH (22:00)
[2019-08-21] VITALS (91 sets, daily range): BP systolic 101–165; BP diastolic 47–83
[2019-08-21] MEDS: InsuLIN REG 1unit/0.01ml Soln (100units/ml) SC SCH ×5 (01:00→23:56)
--- NOTE | 2019-08-21 02:00 | NUR ---
TOOK OVER PATIENT ASSIGNMENT FROM [facility] NEAL. STAT GLUCOSE SENT. PATIENT OPENS HER EYES, LOOKS AROUND. ETT TO VENTILATOR. NOTHING SUCTIONED FROM THE ETT. OVERBREATHES THE VENTILATOR. CURRENT RR 25. NEPRO AT 10CC/HR. NO RESIDUAL. ABDOMEN SOFT. PITTING EDEMA IN ARMS AND LEGS. NOTED BRIGHT REDNESS IN EXTREMITIES. SCDS ON, REMOVED BRIEFLY TO CHECK SKIN. NO HEEL BREAKDOWN. REPOSITIONED PATIENT TO LEFT SIDE. ALL PULSES WEAK AND PALPABLE. RECEIVED FFP TONIGHT. ISOLATION FOR MRSA IN BLOOD , SPUTUM, NARES AND URINE.
[2019-08-21] MEDS: ALBUTEROL SULF 2.5 MG/0.5ML(0.5%) NEB SOLN NEB SCH ×6 (02:14→22:14)
[2019-08-21] MEDS: ACETYLCYSTEINE 20%(200MG/ML) SOL 4ML NEB SCH ×6 (02:14→22:14)
[2019-08-21] MEDS: Nepro With Carb Steady 1 Liter Bottle NG SCH (02:14)
--- NOTE | 2019-08-21 03:52 | NUR ---
CHG BATH AND COMPLETE LINEN CHANGE
--- NOTE | 2019-08-21 04:25 | NUR ---
SILICONE LOTION TO SKIN. WOUND CONSULT IN TO GET THE IODOFORM GAUZE FOR THE WOUND SITE.FIRST DEGREE AV BLOCK. NO ECTOPY. CENTRAL LINE DRESSING CHANGE. CENTRAL LINE SUTURED IN PLACE. SITE SHOWS NO REDNESS, DRNG , OR SWELLING. OGT RESIDUAL 10CC.
--- NOTE | 2019-08-21 04:43 | NUR ---
RIGHT UPPER CHEST DRESSING REMOVED REVEALING A SMALL OPEN HOLE WITH SEROUS DRNG. AREA CLEANED AND FOAM DRESSING APPLIED. JUST BENEATH THAT IS AN ABRASION WOUND WITH A FOAM DRESSING OVER IT. NO DRNG FROM THIS WOUND. DOWN FURTHER ONTO THE RIGHT LATERAL BREAST IS A CLOSED RED WOUND, NO DRNG. THIS IS OPEN TO AIR.
[2019-08-21] MEDS: ACCU-CHEK COMFORT CURVE STRIP VI SCH ×5 (06:07→23:56)
[2019-08-21 06:19] LABS: Basophils # (auto) 0.1 uL; Hemoglobin 9.2 g/dL (12.2-16.2); Lymphocytes # (auto) 0.6 uL; Monocytes # (auto) 0.2 uL
[2019-08-21 06:21] LABS: Basophils % (auto) 1.1 % (0.0-2.0); Eosinophils # (auto) 0.1 uL; Eosinophils % (auto) 1.2 % (0.0-7.0); Hematocrit 27.8 % (36.0-46.0); Lymphocytes % (auto) 6.1 % (10.0-50.0); Mean Corpuscular Hemoglobin 27.2 pg (28.0-32.0); Mean Corpuscular Hgb Conc. 33.2 g/dL (32.0-36.0); Mean Corpuscular Volume 82.1 fL (80.0-100.0); Monocytes % (auto) 2.2 % (0.0-12.0); Neutrophils # (auto) 9.1 uL; Neutrophils % (auto) 89.4 % (37.0-80.0); Platelet Count (auto) 40 10^3/uL (140-450); Red Blood Cells 3.39 10^6/uL (4.0-5.20); White Blood Cell 10.2 10^3/uL (4.4-10.8)
--- NOTE | 2019-08-21 06:25 | NUR ---
SUCTIONED ETT FOR A LARGE AMOUNT OF THICK WHITE SECRETIONS.AWAKE. O
[2019-08-21 06:42] LABS: Potassium 3.9 mmol/L (3.5-5.1)
[2019-08-21 06:47] LABS: BUN/Creatinine Ratio 12.9; Calcium 7.5 mg/dL (8.5-10.1)
[2019-08-21 06:54] LABS: Red Cell Distribution Width 20.8 % (11.8-14.3)
--- NOTE | 2019-08-21 08:04 | NUR ---
SBAR REPORT RECEIVED FROM JUAN SALAS RN. PERFORMED AM ASSESSMENT WITH 0 COMPLICATIONS NOTED. SEE FLOW SHEET FOR MORE DETAILS. PT HAS ORDERS FOR CPAP TRIAL THIS AM. PT ABLE TO FOLLOW SIMPLE COMMANDS AND IS AWAKE (MILD RESTLESSNESS NOTED). RT AT BEDSIDE PLACED PT ON CPAP MODE AT 7:55 AM PER MD ORDERS. SO FAR, PT IS TOLERATING CPAP MODE BUT WILL CONTINUE TO MONITOR PT'S PROGRESS. VSS.
--- NOTE | 2019-08-21 09:00 | NUR ---
PT GETTING MORE RESTLESS DESPITE MEASURES TO DECREASE ANXIETY (CALMING TECHNIQUES, POSITION CHANGES, VERBAL COACHING). PT WAS PLACED BACK ON PREVIOUS VENT SETTINGS BY RT. PT'S RESPIRATORY STATUS IMMEDIATELY IMPROVED ONCE PLACED BACK ON AC MODE. VSS.
[2019-08-21] MEDS: PANTOPRAZOLE 40 MG/10 ML VIAL INJ IV SCH (09:32)
[2019-08-21] MEDS: CLOPIDOGREL BISULFATE 75 MG TAB NG SCH (09:32)
[2019-08-21] MEDS: ENOXAPARIN SOD 30 MG/0.3 ML SYRINGE SC SCH (09:32)
--- NOTE | 2019-08-21 09:40 | NUR ---
LOVENOX MEDICATION HELD FOR PTS'S LOW PLATELET COUNT. ALREADY GOT CLEARANCE FROM [facility] DA[facility]LE TO GIVE PT'S PLAVIX AND ASA. VSS.
[2019-08-21] MEDS ORDERED: ASPirin 81 mg TAB PO SCH (10:00)
--- NOTE | 2019-08-21 10:32 | NUR ---
TRANSPORTATION ESCORT [facility] AT BEDSIDE. UPDATED TRANSPORTATION ESCORT WITH PT OVERALL STATUS. NO NEW ORDERS AT THIS TIME. VSS.
[2019-08-21 11:29] LABS: INR 1.18 (0.9-1.15); Partial Thromboplastin Time 35.2 sec (23.64-32.05)
--- NOTE | 2019-08-21 11:33 | NUR ---
MD PURVIS AT BEDSIDE. UPDATED MD WITH PT OVERALL STATUS INCLUDING CPAP TRIAL, LOW GRADE TEMP, AND LOW PLATELETS. NO NEW ORDERS AT THIS TIME, MD MADE AWARE. PT STILL OFF SEDATION WITH MILD RESTLESSNESS NOTED (VITALS REMAIN STABLE WITHOUT SEDATION AT THIS TIME). VSS. WILL UPDATED MD DEJESUS ACCORDINGLY.
--- NOTE | 2019-08-21 12:00 | NUR ---
WOUND CARE NOTE: IN TO SEE PATIENT AT THIS TIME FOR SKIN/WOUND INTEGRITY MONITORING. PATIENT CONTINUES TO BE INTUBATED, SEDATED. SHE APPEARS RESTLESS. CURRENT BERNADINE SCORE IS 12. PATIENT HAS DEVELOPED MULTIPLE NEW SKIN ISSUES INCLUDING ERYTHEMA, EDEMA/RASH TO RIGHT DORSAL HAND, RIGHT AND LEFT A/C ARM, LEFT DORSAL FOOT. SKIN IS INTACT IN ALL OF THESE AREAS. LEFT OPEN TO AIR. PATIENT HAS WHAT APPEARS TO BE INTACT DTI TO THE RIGHT THIGH/HIP X 3 AND DARKER INTACT DTI TO THE COCCYX. ALL AREAS ARE INTACT. APPLIED OPTIFOAM GENTLE SACRAL DRESSING TO THE COCCYX. SPECIALTY AIR BED ORDERED AT THIS TIME. PATIENT TO BE PLACED, PENDING DELIVERY BY [facility]. WOUND PHOTOS TAKEN OF ALL AREAS FOR REFERENCE. RIGHT NECK AREA HAS OLD BELINDA CATHETER SITE THAT DR. PRADHAN HAS ASKED TO BE DRESSED WITH IODOFORM AND OPTIFOAM. THERE IS VIRTUALLY NO DEPTH, BUT SMALL STRIP OF IODOFORM WAS PLACED OVER OPEN WOUND AREA, COVERED WITH OPTIFOAM GENTLE DRESSING. RECOMMEND: SPECIALTY AIR BED, DAILY/PRN DRESSING CHANGE WITH 1/2 INCH IODOFORM AND OPTIFOAM DRESSING TO RIGHT NECK WOUND, ELEVATION OF EDEMATOUS LEFT HAND/ARM, LEFT DORSAL FOOT, STRICT SIDE TO SIDE REPOSITIONING Q 2 HOURS OR MORE OFTEN, WITH PRESSURE REDISTRIBUTION USING PILLOWS/WEDGES, CONTINUATION WITH ALL OTHER WOUND CARE ORDERS PREVIOUSLY PRESCRIBED BY MD. WOUND CARE TEAM WILL CONTINUE TO MONITOR. Addendum: 08/21/19 at 1628 by Dary Minor RN Amended: Links added.
--- NOTE | 2019-08-21 12:30 | NUR ---
STUDENT FINANCE ADVISOR AT BEDSIDE UPDATING PICTURES. ASSISTED RN WITH PROCEDURE. PT TOLERATED ACTIVITY WELL WITH 0 COMPLICATIONS NOTED, VSS.
[2019-08-21] MEDS: ACETAMINOPHEN 325 MG TAB PO PRN (12:49)
--- NOTE | 2019-08-21 12:49 | NUR ---
PT'S TEMP >100.4. ADMINISTERED ANTIPYRETIC PER MD ORDERS AT THIS TIME. WILL CONTINUE TO MONITOR PT'S PROGRESS, VSS.
[2019-08-21] MEDS ORDERED: LIDOCAINE 2%HCL (LOCAL ANESTH.) INJ 20ML MDV ONE (13:54)
[2019-08-21] MEDS ORDERED: SODIUM CHLORIDE LOCK 10 ML ONE (13:54)
[2019-08-21] MEDS ORDERED: LIDOCAINE HCL 2% TOP JELLY 5ML TOP ONE (13:55)
[2019-08-21] MEDS ORDERED: MIDAZOLAM HCL 5 MG/ML-1ML VIAL ONE (13:55)
[2019-08-21] MEDS ORDERED: EPINEPHrine HCL 1 MG/1 ML AMP ONE (13:55)
[2019-08-21] MEDS ORDERED: fentaNYL CITRATE 100 MCG/2 ML VL ONE (13:56)
--- NOTE | 2019-08-21 14:00 | NUR ---
MD HEAD AT BEDSIDE. UPDATED MD WITH PT OVERALL STATUS INCLUDING PREVIOUS CPAP TRIAL. NEW ORDERS GIVEN AND IMPLEMENTED, VSS. PER MD, HE WANTS TO DO A BRONCHOSCOPY PROCEDURE LATER TODAY FOR PT. CONSENTS OBTAINED PER MD ORDERS.
--- NOTE | 2019-08-21 14:25 | NUR ---
STARTED PT ON LOW SEDATION PER MD HEAD'S ORDERS AT THIS TIME, VSS. OR TEAM SETTING UP FOR BRONCH.
[2019-08-21] MEDS: PROPOFOL 100 ML IV SCH (14:26)
[2019-08-21] MEDS: fentaNYL Drip 2500mCg/250mlNS 250 ML IV SCH (14:26)
--- NOTE | 2019-08-21 14:37 | NUR ---
PT COMPLETED BRONCH WITH 0 COMPLICATIONS NOTED. PER MD HEAD, PT PRESENTS WITH PNEUMONIA. MD WANTS TO KEEP PT ON LOW SEDATION IF POSSIBLE THROUGHOUT THE NIGHT. WILL ATTEMPT CPAP TRIAL IN THE AM PER MD HEAD. VSS.
--- NOTE | 2019-08-21 15:03 | NUR ---
PER DR. DUNHAM ET TUBED PULLED BACK TO 21CM LIP-LINE MARKING WITHOUT INCIDENT. RN AT BEDSIDE
--- NOTE | 2019-08-21 15:30 | NUR ---
PT PLACED ON SPECIALTY MATTRESS AT THIS TIME WITH 0 COMPLICATIONS NOTED, VSS.
--- NOTE | 2019-08-21 16:00 | NUR ---
PT'S DTR ATNYA AT BEDSIDE. UPDATED FAMILY WITH POC. NO FURTHER QUESTIONS AT THIS TIME. FAMILY VERBALIZED UNDERSTANDING WITH POC AND REQUESTS WE OBTAIN RECORDS FROM [facility] FOR FURTHER DETAILS INTO PT'S MEDICAL HISTORY. WILL FOLLOW UP WITH OBTAINING MEDICAL RECORDS (TANYA STATES HER MOTHER HAS POSSIBLY 3 MORE ALLERGIES WE DON'T HAVE LISTED, TANYA DOES NOT KNOW WHICH ALLERGIES PT HAS BUT BELIEVES RECORDS FROM [facility] WILL HAVE THE INFO).
--- NOTE | 2019-08-21 17:00 | NUR ---
DSG CHANGE PERFORMED TO PT'S LEFT NECK INCISION. SITE COVERED WITH IODIFORM PER MD PRADHAN'S ORDERS. NEW DSG C/D/I. PT TOLERATED ACTIVITY WELL WITH 0 COMPLICATIONS NOTED, VSS.
--- NOTE | 2019-08-21 19:00 | NUR ---
Opening note assumed care of patient at this time. Report received from day shift RN. POC reviewed. Head to toe assessment complete, see intervention spreadsheet for complete details. Received pt on ventilator, low sedation. PT grimaces and withdraws to stimulation. VSS. Suction and BVM at bedside. IV site benign. Received pt on specialty bed. Received pt on contact Isolation. Bed locked and in lowest position, safety precautions in place. Will monitor pt carefully.
[2019-08-21] MEDS: ATORVASTATIN 20 MG TAB NG SCH (22:00)
--- NOTE | 2019-08-21 23:59 | NUR ---
WOUND Care Completed on this shift per md order. Dated and initialed.
[2019-08-22] VITALS (79 sets, daily range): BP systolic 85–147; BP diastolic 48–88
--- NOTE | 2019-08-22 00:20 | NUR ---
Tube feeding turned on for BS 69 at midnight. 5 mls bile aspirated from stomach. Will assess for pt tolerance. Addendum: 08/22/19 at 0226 by MORGAN HUNTER RN started at 15 mls/hr
[2019-08-22] MEDS: ACETYLCYSTEINE 20%(200MG/ML) SOL 4ML NEB SCH ×6 (02:07→22:19)
[2019-08-22] MEDS: ALBUTEROL SULF 2.5 MG/0.5ML(0.5%) NEB SOLN NEB SCH ×6 (02:07→22:19)
[2019-08-22] MEDS: ACETAMINOPHEN 325 MG TAB PO PRN (02:38)
--- NOTE | 2019-08-22 02:50 | NUR ---
Temp Rectal temp 100.4. Tylenol given as ordered.
[2019-08-22 03:39] LABS: Basophils # (auto) 0.1 uL; Basophils % (auto) 0.9 % (0.0-2.0); Lymphocytes # (auto) 0.6 uL; Monocytes # (auto) 0.2 uL; Neutrophils # (auto) 7.5 uL; Platelet Count (auto) 34 10^3/uL (140-450); White Blood Cell 8.6 10^3/uL (4.4-10.8)
[2019-08-22 03:41] LABS: Eosinophils # (auto) 0.3 uL; Eosinophils % (auto) 3.4 % (0.0-7.0); Hematocrit 26.3 % (36.0-46.0); Hemoglobin 8.6 g/dL (12.2-16.2); Lymphocytes % (auto) 6.6 % (10.0-50.0); Mean Corpuscular Hemoglobin 26.6 pg (28.0-32.0); Mean Corpuscular Hgb Conc. 32.7 g/dL (32.0-36.0); Mean Corpuscular Volume 81.1 fL (80.0-100.0); Monocytes % (auto) 2.1 % (0.0-12.0); Nucleated Red Blood Cells % 0.1 %; Red Blood Cells 3.24 10^6/uL (4.0-5.20)
--- NOTE | 2019-08-22 03:42 | NUR ---
Temp reassessment 100.6 rectally. Continue with cooling measures.
[2019-08-22 03:56] LABS: BUN/Creatinine Ratio 12.8; Calcium 7.4 mg/dL (8.5-10.1)
[2019-08-22 03:59] LABS: Red Cell Distribution Width 20.9 % (11.8-14.3)
--- NOTE | 2019-08-22 04:15 | NUR ---
Residuals 30 mls tf aspirated in OGT. Returned, flushed clamped. TF held at this time.
--- NOTE | 2019-08-22 04:35 | NUR ---
fisher seal called Will be here around change of shift.
--- NOTE | 2019-08-22 04:56 | NUR ---
Bed bath/Elimination Pt given CHG and soap and water bed bath. PT had small hard stool when cleaning. PT tolerated well. PT able to track and answer simple yes or no questions. Pt repositioned for safety and comfort. No skin integrity changes noted. Will continue with care.
[2019-08-22] MEDS: ACCU-CHEK COMFORT CURVE STRIP VI SCH ×3 (05:53→18:12)
[2019-08-22] MEDS: InsuLIN REG 1unit/0.01ml Soln (100units/ml) SC SCH ×3 (05:53→18:00)
[2019-08-22] MEDS ORDERED: SODIUM CHL 0.9% 1000 ML BAG XX ONE (06:30)
--- NOTE | 2019-08-22 07:10 | NUR ---
HDX HDX RN AT THE BEDSIDE AND TREATMENT STARTED.
--- NOTE | 2019-08-22 07:30 | NUR ---
REPORT REPORT RECEIVED FROM NIGHT RNMORGAN. PT RESTING IN BED, ON THE VENTILATOR AND SEDATED ON FENTANYL AT 25 MCG/HR. IN CONTACT ISOLATION FOR +MRSA IN THE NARES, SPUTUM, BLOOD AND URINE AND + PRESUMPTIVE DANELLE IN THE SPUTUM.HDX RN AT THE BEDSIDE AND HDX IN PROGRESS.
--- NOTE | 2019-08-22 08:25 | NUR ---
ASSESSMENT PT IN CONTACT AND DROPLET PRECAUTIONS . ON THE VENTILATOR WITH VENT SETTINGS OF: TV 500, AC 14, 30% FIO2 AND PEEP OF 5. LUNGS CLEAR AND DIMINISHED AT THE BASES POSTERIOR. SUCTIONED FOR THICK CREAMY SECRETIONS ORALLY AND THIN CLEAR FLUID VIA ETT. TELE SR. PALPABLE PULSES TO ALL EXTREMITIES. PITTING BRIDGER ANNIE BOTH HANDS, BLE, AND TO BOTH ANKLES. SCDS TO BLE. ABD SOFT AND WITH RIGHT NARES NGT, + PLACEMENT AND 10 ML BILE RESIDUAL NOTED. GANDARA CATHETER DRAINING DARK YELLOW URINE WITH SEDIMENT. UNABLE TO TURN HDX IN PROGRESS. RIGHT FEMORAL BELINDA CATHETER. HDX STARTED AT 0710. RAILS UP X4 AND BED IN LOW POSITION FOR PT SAFETY.
--- NOTE | 2019-08-22 10:10 | NUR ---
HDX HDX TREATMENT COMPLETED AND 2.5 LITERS REMOVED. VSS. CONTINUE TO MONITOR. 143.8#/65.3KG.
--- NOTE | 2019-08-22 10:15 | NUR ---
MD/MEDS/LOW H/H AND PLATELETS HOLDING SCHEDULED MEDS OF :PLAVIX, ASPRIN AND LOVENOX. WILL CHECK WITH DR CASTREJON TO SEE IF HE WANTS THEM GIVEN PLATELETS ARE NOW 34 AND A ND H/H 8.6/26.3. CONTINUE TO MONITOR.
[2019-08-22] MEDS: PANTOPRAZOLE 40 MG/10 ML VIAL INJ IV SCH (10:30)
--- NOTE | 2019-08-22 11:07 | NUR ---
Nutrition Follow-up Notes Wt.: 65.8 kg Pt's in isolation room, intubated, non-sedated, no immediate family member at bedside except for RN during rounds this morning. Pt had dialysis today, remains NPO, EN feeds on hold for possible CPAP and high residuals per RN. pt was on EN support with Nephro carb steady @ 10 ml/hr. Per records pt s/p ROSALBA Est. Needs: 1750 kcal to 2100 kcal (25-30 kcal/kgBW), 84 gms to 105 gms pro (1.2-1.5 gms/kgBW d/t ESRD on HD). Will continue to monitor pertinent labs and reassess nutrient need prn Labs: BUN 56 H, CREAT 4.39 H, CA 7.4 L. Skin: Tae scale 13, high risk, pt's right lateral chest blister/skin tear per documentation consultant. Pls refer to latest cattle dehorner's notes for details re: tx plans. GI: Pt's no bowel activity since 09/13/18 per documentation consultant. PES: Increased nutrient needs r/t acute/chronic medical condition aeb intubated, sedated, severe hypoalbuminemia, ESRD on HD, NPO. Altered nutrition related lab values r/t current/chronic medical condition aeb hyperchloremia, elev. renal labs, ALP, hyperbilirubinemia, hypocalcemia and severe hypoalbuminemia Will continue to monitor NPO status, skin status, pertinent labs and weight trend. F/u in 2 to 3 days. Rec.: 1.) If still NPO in next 36 hrs, consider alternate nutrition / EN support preferred with formula choice of Nephro Carb Steady @ 45 ml/hr goal rate as tolerated. 2.) If Albumin continues trending down, consider Prostat 1 pkt BID. 3.) Consider daily Nephrovite and Asc acid 500 mgs BID. 4.) Advance gradually to oral diet when medically appropriate. 5.) Refer to RD for further nutrition educ. and weight monitoring upon discharge. 6.) Continue current plan of care.
--- NOTE | 2019-08-22 11:18 | NUR ---
DR CASTREJON PAGED AND SPOKE WITH DR CASTREJON. ASKED HIM ABOUT WHETHER TO ADMINISTER ASPIRIN, PLAVIX AND LOVENOX WITH H/H 8.6/26.3 AND PLATELETS OF34. HE STATES TO HOLD THE MEDS AND HE IS PLACING A CARDIOLOGY CONSULT AND A HEMATOLOGY CONSULT.
--- NOTE | 2019-08-22 12:40 | NUR ---
ACCUCHECK OF 73 WITH NO COVERAGE NEEDED.
--- NOTE | 2019-08-22 13:15 | NUR ---
PT EXTUBATED AND PLACED ON CMM AT 40%. LUNGS SOUND CLEAR S/P EXTUBATION. VS: 95-22-98% AND 144/69. PT KEEPS TALKING. ADVISED HER NOT TO TALK AND TO LET HER THROAT REST. NGT ALSO DISCONTINUED PER DR DUNHAM. SHE WANTS ME TO CALL HER DAUGHTER AND LET HER KNOW. CONTINUE TO MONITOR.
[2019-08-22] MEDS: PROPOFOL 100 ML IV SCH (13:58)
[2019-08-22] MEDS: fentaNYL Drip 2500mCg/250mlNS 250 ML IV SCH (13:58)
--- NOTE | 2019-08-22 14:30 | NUR ---
PT A BIT RESTLESS AND WANTING TO DRINK. STILL NPO. LUNGS CLEAR AND O2 NOW QT 2 L/M VIA NC WITH O2 SAT OF 97%.
--- NOTE | 2019-08-22 15:25 | NUR ---
OK PER DR DUNHAM FOR CLEAR LIQUIDS, ADVANCE TOLERATED.
[2019-08-22] MEDS ORDERED: SODIUM CHLORIDE 0.9% 1,000 ML IV SCH (15:30)
[2019-08-22] MEDS ORDERED: HYDROcodone-ACET 5/325MG TAB ONE (15:54)
--- NOTE | 2019-08-22 18:40 | NUR ---
PT TRANSFERRING TO [facility], #[id number]. REPORT CALLED TO RECEIVING KAROL CHE. PT BEING TRANSPORTED BY ACCOUNT RECEIVABLE ASSOCIATE, HELEN, AND WILLY TREVINO. PT ON PORTABLE WASHER AND CRUSHER TENDER AND PORTABLE O2.
--- NOTE | 2019-08-22 18:45 | NUR ---
Transfer to [facility] from ICU [facility] transferred to [facility] via hospital bed on executive marketing assistant, and portable 02. Patient connected to unit monitoring and oxygen, and weighed by bedscale. Patient oriented to SHONNA PLUMMER RN primary RN, unit, room, bed, and unit policies regarding patient care and visiting hours. All questions and concerns addressed, patient verbalized understanding. Patient calling that she felt thirsty, provided water, patient sitting up with high giles position, able to move her hands but cannot hold to cup, able to move her legs, HR 90/min with SR, RR 28/MIN o2 SATURATION 99% WITH O2 NC 3 LPM, BP 139/66 mmHg. Central line at right IJ, running IV as ordered, patient has neal's catheter. Will continue to monitor and care.
[2019-08-22] MEDS ORDERED: EPOETIN ALFA 4,000 UNIT/ML VL SC ONE (21:00)
[2019-08-22] MEDS ORDERED: VANCOMYCIN 750mg/250ml 250 ML IV ONE (21:45)
--- NOTE | 2019-08-22 21:50 | NUR ---
Daughter at bedside
[2019-08-22] MEDS: ATORVASTATIN 20 MG TAB NG SCH (22:00)
[2019-08-23] VITALS (7 sets, daily range): BP systolic 121–148; BP diastolic 62–86
--- NOTE | 2019-08-23 01:53 | NUR ---
Patient bathe/linen change Patient given complete bath. Skin integrity assessed for any changes. Complete linens and gown changed. Patient repositioned for comfort.
[2019-08-23] MEDS: ALBUTEROL SULF 2.5 MG/0.5ML(0.5%) NEB SOLN NEB SCH ×6 (02:00→22:24)
[2019-08-23] MEDS: ACETYLCYSTEINE 20%(200MG/ML) SOL 4ML NEB SCH ×6 (02:00→22:24)
--- NOTE | 2019-08-23 02:01 | NUR ---
Dressing of wound in the right chest done, optifoam dressing changed.
[2019-08-23 04:59] LABS: Basophils # (auto) 0.1 uL; Eosinophils # (auto) 0.1 uL; Mean Corpuscular Hemoglobin 26.7 pg (28.0-32.0); White Blood Cell 10.7 10^3/uL (4.4-10.8)
[2019-08-23 05:04] LABS: Basophils % (auto) 0.6 % (0.0-2.0); Eosinophils % (auto) 1.4 % (0.0-7.0); Hemoglobin 8.6 g/dL (12.2-16.2); Lymphocytes # (auto) 0.8 uL; Lymphocytes % (auto) 7.7 % (10.0-50.0); Monocytes # (auto) 0.2 uL; Monocytes % (auto) 2.3 % (0.0-12.0); Neutrophils # (auto) 9.4 uL; Nucleated Red Blood Cells % 0.1 %; Platelet Count (auto) 60 10^3/uL (140-450); Red Blood Cells 3.21 10^6/uL (4.0-5.20)
[2019-08-23 05:20] LABS: Albumin 1.4 g/dL (3.4-5.0); Calcium 7.2 mg/dL (8.5-10.1); Potassium 3.8 mmol/L (3.5-5.1)
[2019-08-23 05:25] LABS: BUN/Creatinine Ratio 12.6; Bilirubin, Total 2.7 mg/dL (0.2-1.0); Total Protein 6.5 g/dL (6.4-8.2)
[2019-08-23 05:36] LABS: Red Cell Distribution Width 20.3 % (11.8-14.3)
[2019-08-23] MEDS: ACCU-CHEK COMFORT CURVE STRIP VI SCH ×4 (06:00→17:39)
[2019-08-23] MEDS: InsuLIN REG 1unit/0.01ml Soln (100units/ml) SC SCH ×4 (06:00→17:39)
--- NOTE | 2019-08-23 07:50 | NUR ---
Opening Shift Note Assumed care of patient, awake and alert x1, talking and yelling sometimes, asking for water. No S/S of distress/SOB or pain. Instructed on POC and to call for assist PRN, will continue to monitor for changes Q1hr and PRN. Patient sitting up with high giles position, provided water, cannot hold a cup, need help, able to drink no coughing, will continue to monitor and care.
--- NOTE | 2019-08-23 09:10 | NUR ---
Assisted patient with Breakfast, patient had 1/2 cup of Jello, 1 box of Juice, no aspiration noted, sitting up with high giles position when eating, needed time for swallowing. Will continue to monitor and care.
--- NOTE | 2019-08-23 09:20 | NUR ---
Dr. West at the bedside, seen and examined patient at this time, no new order noted, will continue to monitor for bleeding and Labs.
[2019-08-23] MEDS: PANTOPRAZOLE 40 MG/10 ML VIAL INJ IV SCH (09:22)
[2019-08-23] MEDS: HYDROcodone-ACET 5/325MG TAB PO PRN ×2 (09:32→15:40)
--- NOTE | 2019-08-23 09:41 | NUR ---
Position changed, pain medication given for pain management. Will continue to monitor and care.
--- NOTE | 2019-08-23 10:30 | NUR ---
Mary ASSEMBLER WET WASH for Dr. Moseley at the bedside, seen and examined patient at this time, received new order for Metoprolol, will continue to monitor and care.
[2019-08-23] MEDS ORDERED: METOPROLOL TARTRATE 50 MG TAB PO ONE (10:45)
--- NOTE | 2019-08-23 11:30 | NUR ---
Called and talked to Divya (Daughter) on the phone regarding TO consent for CT with the contrast, she said she wants us to get the history of patient allergy from [facility] first, she won't sign the consent at this time until we get the medical record for [facility], paged Dr. Oneill, waiting for a call back from .
--- NOTE | 2019-08-23 11:42 | NUR ---
Faxed authorization for use or disclosure of health information to Stephen at Fax no. [phone], called and let Divya (daughter) made aware that if we get update, we will call her again.
--- NOTE | 2019-08-23 13:40 | NUR ---
Dr. Lea at the bedside, seen and examined patient at this time, received order for PICC line insertion, plan to D/C central line (3-lumen) at right IJ.
--- NOTE | 2019-08-23 14:00 | NUR ---
Reposition, patient sitting up with high giles position, helping patient with feeding, patient had 1 krueger twin pop and 1 cup of Jello, no N/V noted, no coughing or aspiration noted.
--- NOTE | 2019-08-23 14:40 | NUR ---
Got the medical record from [facility] about allergy, Divya Trujillo made aware, gave TO consent for CT chest, abdomen,pelvic with IV contrast and for PICC line insertion as well.
[2019-08-23] MEDS ORDERED: IOHEXOL 300 MG/ML 100ML BOTTLE IJ ONE (14:45)
--- NOTE | 2019-08-23 14:57 | NUR ---
Patient taking to the radiology unit for CT.
--- NOTE | 2019-08-23 15:20 | NUR ---
Patient came back from CT.
--- NOTE | 2019-08-23 16:18 | NUR ---
Called and spoke to Dr. Jeny MD made aware that patient had CT with IV contrast today, and patient already has schedule for HD on ,, at this time, MD will continue HD as schedule , patient will have one tomorrow.
--- NOTE | 2019-08-23 16:20 | NUR ---
Still waiting for Dr. Oneill to call back, per Dr. Lea recommendation for PICC line and advance her diet. Plt around 60 for today, no bleeding noted. Divya (daughter) made aware about the plan for PICC line insertion, gave TO consent.
--- NOTE | 2019-08-23 16:40 | NUR ---
Spoke to Dr. Mai MD made aware about CT result, MD will discuss with Dr. Lea, will continue clear liquid diet and will postpone PICC line insertion at his time.
--- NOTE | 2019-08-23 17:50 | NUR ---
Dr. Lea at the bedside, made aware about CT result, seen and examined patient again, MD stated that will discuss with Dr. Oneill for the future plan.
--- NOTE | 2019-08-23 18:50 | NUR ---
Patient sitting up with high giles position, helping with dinner, patient had 1/2 of ice cream, no aspiration noted.
--- NOTE | 2019-08-23 19:10 | NUR ---
OPENING SHIFT RECEIVED REPORT FROM DAY SHIFT RN. ASSUMED CARE OF PATIENT. PATIENT IN BED SLEEPING WITH NO SIGNS OR SYMPTOMS OF SOB, PAIN OR DISTRESS. CURRENTLY ON 4L 02 NASAL CANNULA, 02 SAT - 95%. RIGHT INTRAJUGULAR TLC - CLEAN/DRY/INTACT. RIGHT FEMORAL HEMODIALYSIS CATHETER - CLEAN/DRY/INTACT. RIGHT NECK DRESSING S/P HEMODIALYSIS CATHETER - CLEAN/DRY/INTACT NO SIGNS OF BLEEDING. SKIN ASSESSED AT THIS TIME. GANDARA HUNG TO GRAVITY ON BED RAIL. REPOSITIONED FOR COMFORT. BED IN LOWEST POSITION, SIDE RAILS UP X2, CALL LIGHT WITHIN REACH. WILL CONTINUE TO MONITOR.
[2019-08-23] MEDS: ATORVASTATIN 20 MG TAB NG SCH (22:00)
[2019-08-23] MEDS: METOPROLOL TARTRATE 50 MG TAB PO SCH (22:00)
--- NOTE | 2019-08-23 22:00 | NUR ---
MEDICATION HELD PATIENT SLEEPING AND UNABLE TO SWALLOW MEDICATION PROPERLY. WILL CONTINUE TO MONITOR.
[2019-08-24] MEDS: ACCU-CHEK COMFORT CURVE STRIP VI SCH ×5 (00:03→23:43)
--- NOTE | 2019-08-24 00:05 | NUR ---
SWALLOW EVALUATION PATIENT MORE AWAKE AND ABLE TO FOLLOW COMMANDS. SWALLOWING CAPABILITY TESTED WITH THICKENED LIQUIDS. PATIENT TOLERATED WELL, NO COUGHING. WILL CONTINUE TO MONITOR.
[2019-08-24] MEDS: HYDROcodone-ACET 5/325MG TAB PO PRN ×2 (00:21→19:39)
[2019-08-24] MEDS: ACETYLCYSTEINE 20%(200MG/ML) SOL 4ML NEB SCH ×6 (02:19→21:39)
[2019-08-24] MEDS: ALBUTEROL SULF 2.5 MG/0.5ML(0.5%) NEB SOLN NEB SCH ×6 (02:19→21:39)
[2019-08-24 02:24] VITALS: BP 127/65
[2019-08-24 04:00] VITALS: BP 127/59
--- NOTE | 2019-08-24 04:30 | NUR ---
MORNING CARE PERFORMED MORNING CARE WITH WASH CLOTHS. PARTIAL LINEN CHANGE AND GOWN CHANGED. REPOSITIONED FOR COMFORT. SKIN REASSESSED AT THIS TIME. WILL CONTINUE TO MONITOR.
--- NOTE | 2019-08-24 04:35 | NUR ---
DRESSING CHANGE RIGHT NECK S/P HEMODIALYSIS CATHETER DRESSING CHANGED - CLEANSED WITH NORMAL SALINE, PAT DRY WITH STERILE GAUZE, PACKED WITH IODOFORM AND DRESSED WITH TEGADERM.
[2019-08-24] MEDS: InsuLIN REG 1unit/0.01ml Soln (100units/ml) SC SCH ×5 (05:47→23:43)
--- NOTE | 2019-08-24 07:19 | NUR ---
END OF SHIFT REPORT GIVEN TO DAY SHIFT. CARE ENDORSED.
[2019-08-24 07:45] VITALS: BP 123/64
--- NOTE | 2019-08-24 08:00 | NUR ---
Opening Shift Note Assumed care of patient. Patient A&Ox2. Patient on the monitor. Patient on 4L NC, saturation at 96%. Right IJ triple lumen saline locked, patent, clean, dry, and intact. Crow to gravity. SCD bilateral. No S/S of distress/SOB or pain. Instructed on POC and to call for assist. Bed locked and in the lowest position, side rails up x2, call light with in reach. Will continue to monitor.
[2019-08-24] MEDS: METOPROLOL TARTRATE 50 MG TAB PO SCH ×2 (09:43→19:39)
[2019-08-24] MEDS: PANTOPRAZOLE 40 MG/10 ML VIAL INJ IV SCH (09:44)
--- NOTE | 2019-08-24 10:00 | NUR ---
Medication dosages, usages, and side effects explained to patient. Patient verbalized understanding. Will continue to monitor.
--- NOTE | 2019-08-24 11:00 | NUR ---
Dr. Kim at bedside. Addendum: 08/24/19 at 1714 by Nitza Oliver RN Wrong Patient.
--- NOTE | 2019-08-24 11:25 | NUR ---
Dialysis started. burn center nurse at bedside.
--- NOTE | 2019-08-24 11:40 | NUR ---
Nutrition Follow-up Notes Wt.: 65.8 kg Pt's in isolation room, intubated, non-sedated, no immediate family member at bedside except for RN during rounds this morning. Pt had dialysis yesterday, advance to clear liq diet with inadequate PO of < 50% x 3 per RN doc Est. Needs: 1750 kcal to 2100 kcal (25-30 kcal/kgBW), 84 gms to 105 gms pro (1.2-1.5 gms/kgBW d/t ESRD on HD). Will continue to monitor pertinent labs and reassess nutrient need prn Labs: BUN 44 H, CREAT 3.48 H, CA 7.2 L, ALB 1.4 L. Skin: Tae scale 15, mod risk, pt's right lateral chest blister/skin tear per clinical documentation improvement specialist. Pls refer to latest examination grader's notes for details re: tx plans. GI: Pt's no bowel activity since 09/13/18 per clinical documentation improvement specialist. PES: Increased nutrient needs r/t acute/chronic medical condition aeb intubated, sedated, severe hypoalbuminemia, ESRD on HD, NPO. Altered nutrition related lab values r/t current/chronic medical condition aeb hyperchloremia, elev. renal labs, ALP, hyperbilirubinemia, hypocalcemia and severe hypoalbuminemia Will continue to monitor PO intake, skin status, pertinent labs and weight trend. F/u in 2 to 3 days. Rec.: 1.) Consider ensure clear 1 carton bid if PO is low. 2) If Albumin continues trending down, consider Prostat 1 pkt BID. 3.) Consider daily Nephrovite and Asc acid 500 mgs BID. 4.) Advance gradually to oral diet when medically appropriate. 5.) Refer to RD for further nutrition educ. and weight monitoring upon discharge. 6.) Continue current plan of care.
[2019-08-24] MEDS ORDERED: SODIUM CHL 0.9% 1000 ML BAG XX ONE (11:45)
[2019-08-24 11:50] VITALS: BP 116/59
--- NOTE | 2019-08-24 12:30 | NUR ---
Dr. Lea at bedside.
--- NOTE | 2019-08-24 13:00 | NUR ---
Dr. Grubbs at bedside. Addendum: 08/24/19 at 1714 by Nitza Oliver RN Wrong Patient.
--- NOTE | 2019-08-24 13:30 | NUR ---
Dr. Oneill at bedside.
--- NOTE | 2019-08-24 14:05 | NUR ---
Dialysis done. 2.2L removed.
--- NOTE | 2019-08-24 15:30 | NUR ---
Patient's nephew at bedside.
[2019-08-24 16:15] VITALS: BP 140/72
--- NOTE | 2019-08-24 18:30 | NUR ---
End of Shift Note Patient A&Ox2. Patient on the monitor. Patient on 4L NC, saturation at 95%. Right IJ triple lumen saline locked, patent, clean, dry, and intact. Crow to gravity. SCD bilateral. No S/S of distress/SOB or pain. Bed locked and in the lowest position, side rails up x2, call light with in reach. Report to be given to mini shifter RN. Will continue to monitor.
[2019-08-24] MEDS: ATORVASTATIN 20 MG TAB NG SCH (19:39)
[2019-08-24] MEDS: rifAMPin 300 MG CAP PO SCH (19:39)
[2019-08-24 19:58] VITALS: BP 140/72
--- NOTE | 2019-08-24 21:43 | NUR ---
RT NOTE WENT TO ELECTRON BEAM PHOTO MASK TECHNICIAN PT AMI TX PT ROIPED MASK OFF HER FACE AND SAID SHE DOES NOT WANT THE TREATMENT. PT WAS VERY AGITATED AND ANGRY.
[2019-08-24] MEDS ORDERED: rifAMPin IV 600 MG in SODIUM CHL 0.9% 100 ML IV SCH (22:00)
[2019-08-24] MEDS: LORazepam 2MG/ML-1ML VIAL IV PRN (22:36)
[2019-08-25] VITALS: BP 140/72
[2019-08-25] MEDS: ALBUTEROL SULF 2.5 MG/0.5ML(0.5%) NEB SOLN NEB SCH ×6 (01:51→22:26)
[2019-08-25] MEDS: ACETYLCYSTEINE 20%(200MG/ML) SOL 4ML NEB SCH ×6 (01:51→22:27)
[2019-08-25] MEDS: ACCU-CHEK COMFORT CURVE STRIP VI SCH ×3 (05:02→18:00)
[2019-08-25] MEDS: InsuLIN REG 1unit/0.01ml Soln (100units/ml) SC SCH ×3 (05:02→18:00)
[2019-08-25 05:55] LABS: Basophils # (auto) 0.1 uL; Eosinophils # (auto) 0.1 uL; Lymphocytes # (auto) 0.7 uL; Monocytes # (auto) 0.2 uL
[2019-08-25 05:57] LABS: Basophils % (auto) 1.1 % (0.0-2.0); Eosinophils % (auto) 1.3 % (0.0-7.0); Hematocrit 23.2 % (36.0-46.0); Hemoglobin 7.6 g/dL (12.2-16.2); Lymphocytes % (auto) 9.2 % (10.0-50.0); Mean Corpuscular Hemoglobin 26.4 pg (28.0-32.0); Mean Corpuscular Hgb Conc. 32.6 g/dL (32.0-36.0); Mean Corpuscular Volume 80.8 fL (80.0-100.0); Neutrophils # (auto) 6.1 uL; Neutrophils % (auto) 85.4 % (37.0-80.0); Platelet Count (auto) 117 10^3/uL (140-450); Red Blood Cells 2.87 10^6/uL (4.0-5.20); White Blood Cell 7.1 10^3/uL (4.4-10.8)
[2019-08-25 06:07] LABS: Red Cell Distribution Width 20.2 % (11.8-14.3)
[2019-08-25 06:17] LABS: BUN/Creatinine Ratio 13.1; Calcium 6.9 mg/dL (8.5-10.1); Potassium 3.8 mmol/L (3.5-5.1)
[2019-08-25 08:00] VITALS: BP 149/65
--- NOTE | 2019-08-25 08:00 | NUR ---
ASSESS- PT. LYING ON HILL ROM BED, ORIENTED TO SELF ONLY. YELLING OUT AT TIMES, SPEECH INCOMPREHENSIBLE. MITTEN TO LT. HAND TO PREVENT PULLING OF TUBES. LUNGS CLEAR LESA. INSPIRATORY AND EXPIRATORY. O2 4L N/C WITH HUMIDIFIER. NO SOB. ABD. SOFT, FLAT, NON-TENDER. BOWEL SOUNDS ALL FOUR QUADRANTS. F/C TO GRAVITY WITH CLEAR DK. CECIL URINE. BELINDA CATHETER RT. FEMORAL INTACT. TLC RT. IJ INTACT. RADIAL PULSES STRONG, PALPABLE LESA. DORSALIS PEDAL PULSES STRONG, PALPABLE LESA. 1 PLUS EDEMA ARMS/HANDS LESA. SCD'S LESA. LE. RT. HIP WITH DTI. SACRUM WITH DTI. SKIN TEAR TO RT. AND LT. SIDE OF CHEST WITH OPTIFOAM DSG. D/I. RT. SIDE OF NECK WITH OPEN WOUND WITH DSG. D/I. ON DROPLET/CONTACT ISOLATION FOR MRSA.
[2019-08-25] MEDS: LORazepam 2MG/ML-1ML VIAL IV PRN ×3 (08:12→20:29)
--- NOTE | 2019-08-25 08:12 | NUR ---
PT. AGITATED AND RESTLESS. YELLING OUT LOUD. ORIENTED TO SELF ONLY. UNABLE TO REDIRECT PT. MED. PT. WITH ATIVAN 1MG. IVP.
--- NOTE | 2019-08-25 08:45 | NUR ---
02 SATS DECREASED TO 87%-88% ON NC 4L. NO SOB. INCREASED O2 TO 6L N/C WITH HUMIDIFIER. RR TEENS TO 20'S. PT. HAS LESA. HAND MITTENS IN PLACE, PULLING OFF O2. UNABLE TO REDIRECT PT. MONITORING O2 SATS.
--- NOTE | 2019-08-25 08:45 | NUR ---
DR. PARRA Provider/Hospitalist at bedside.
--- NOTE | 2019-08-25 09:05 | NUR ---
PT. NO LONGER AGITATED OR RESTLESS. RESTING WITH EYES CLOSED.
--- NOTE | 2019-08-25 09:10 | NUR ---
PT'S. O2 SATS 89%-90% ON O2 6L N/C. NO SIGNS OF RESP. DISTRESS. PAGED RT AND PLACED PT. ON OXYMIZER 8L. O2 SATS INCREASED TO 95%. NO SIGNS OF DISTRESS.
[2019-08-25] MEDS: rifAMPin 300 MG CAP PO SCH ×2 (10:00→22:00)
[2019-08-25] MEDS: PANTOPRAZOLE 40 MG/10 ML VIAL INJ IV SCH (10:38)
[2019-08-25] MEDS: METOPROLOL TARTRATE 50 MG TAB PO SCH ×2 (10:39→22:01)
--- NOTE | 2019-08-25 11:30 | NUR ---
O2 SATS 100% ON OXYMIZER 8L. DECREASED TO 6L FROM 8L. O2 SATS REMAIN UPPER 90'S. NO SIGNS OF RESP. DISTRESS.
[2019-08-25 12:00] VITALS: BP 127/65
--- NOTE | 2019-08-25 12:00 | NUR ---
DR. Nawaf ZAVALETA Provider/Hospitalist at bedside. GAVE UPDATE ON PT.
--- NOTE | 2019-08-25 14:15 | NUR ---
PT. RESTLESS, TRYING TO PULL OFF OXYMIZER. AGITATED, YELLING OUT LOUD AND SWEARING. UNABLE TO REDIRECT PT. LESA. HAND MITTENS IN PLACE TO PREVENT PULLING OF TUBES. MED. PT. WITH ATIVAN 1MG. IVP.
--- NOTE | 2019-08-25 15:00 | NUR ---
PT. RESTING WITH EYES CLOSED, CALM. NO LONGER RESTLESS OR AGITATED.
[2019-08-25 16:00] VITALS: BP 127/66
--- NOTE | 2019-08-25 16:00 | NUR ---
TEMP 101.0 ORALLY. ICE PACKS PLACED LESA. AXILLA AND COLD WASHCLOTH TO FOREHEAD. SHEET REMOVED.
--- NOTE | 2019-08-25 18:00 | NUR ---
RECHECKED TEMPERATURE 98.4 ORALLY. REMOVED ICE PACKS TO LESA. AXILLA AND WASHCLOTH FROM FOREHEAD.
--- NOTE | 2019-08-25 19:20 | NUR ---
Opening Assumed care of female patient. Patient A&Ox2. Patient on unit monitors. Patient Oxymizer 6L, saturation at 97%. Right IJ triple lumen, r femoral quintan cath, both sites are patent, clean, dry, and intact. Crow below bladder draining urine to gravity. SCD bilateral. educated pt overhead distribution engineer light and usage, pt verbalized understanding, call light is within reach. pt has r hip dti, sacrum dti. pt educated to avoid laying or kenzie pressure to those areas, pt refuses to follow recommendations and continues to lay on the injured areas. pt has skin tear to upper r and l chest, covered wtih opti foam at this time. pt denies pain at this time. bed in the lowest position, wheels locked, hob30*, 3 side rails up. pt is in full view of rn station. pillows in place under jeff prominences to off load pressure for comfort and safety. will continue to care for and monitor.
[2019-08-25 20:00] VITALS: BP 141/72
--- NOTE | 2019-08-25 20:15 | NUR ---
elevated temp pt has elevated temp cooling measures are in place
[2019-08-25] MEDS: ACETAMINOPHEN 325 MG TAB PO PRN (20:30)
[2019-08-25] MEDS: ATORVASTATIN 20 MG TAB NG SCH (22:01)
--- NOTE | 2019-08-25 23:06 | NUR ---
pt removes Oxymizer pt vs shows desaturation, when assessing the pt it appears she has taken it off. pt educated to keep it on. pt said ok and then continued to remove the Oxymizer. Oxymizer placed back onto pt. stayed in pts room and monitored o2 sat. o2 sat reached 98%. pt is not demonstrating any signs of distress at this time. will continue to monitor
[2019-08-26] VITALS: BP 130/66
--- NOTE | 2019-08-26 01:00 | NUR ---
pt assisted with turns pt assisted with turns and moved up in bed. pt tolerated care. no ss of distress noted at this time.
[2019-08-26 04:00] VITALS: BP 135/76
--- NOTE | 2019-08-26 04:00 | NUR ---
hygiene bed bath provided
[2019-08-26] MEDS: ALBUTEROL SULF 2.5 MG/0.5ML(0.5%) NEB SOLN NEB SCH ×6 (06:40→22:12)
[2019-08-26] MEDS: ACETYLCYSTEINE 20%(200MG/ML) SOL 4ML NEB SCH ×5 (06:41→22:12)
--- NOTE | 2019-08-26 07:30 | NUR ---
REPORT RECEIVED FROM RESEARCH METHODOLOGIST NURSE. PATIENT RESTING IN BED AT THIS TIME. RESPIRATIONS EVEN AND UNLABORED. NO SIGNS OF ACUTE DISTRESS NOTED. CALL LIGHT IN REACH, BED IN LOW POSITION. WILL CONTINUE TO MONITOR.
[2019-08-26 08:00] VITALS: BP 134/72
--- NOTE | 2019-08-26 08:18 | NUR ---
DR Patrick ZAVALETA AT BEDSIDE TO ASSESS PATIENT AND DISCUSS PLAN OF CARE. ALL ORDERS NOTED IN CHART.
[2019-08-26] MEDS: PANTOPRAZOLE 40 MG/10 ML VIAL INJ IV SCH (09:46)
[2019-08-26] MEDS: rifAMPin 300 MG CAP PO SCH ×2 (09:46→21:42)
[2019-08-26] MEDS: HYDROcodone-ACET 5/325MG TAB PO PRN (09:48)
[2019-08-26 10:21] LABS: Basophils # (auto) 0.1 uL; Eosinophils # (auto) 0.1 uL; Hemoglobin 7.5 g/dL (12.2-16.2)
[2019-08-26 10:24] LABS: Eosinophils % (auto) 1.1 % (0.0-7.0); Hematocrit 22.7 % (36.0-46.0); Lymphocytes # (auto) 0.7 uL; Lymphocytes % (auto) 9.3 % (10.0-50.0); Mean Corpuscular Hemoglobin 26.7 pg (28.0-32.0); Monocytes # (auto) 0.2 uL; Monocytes % (auto) 3.4 % (0.0-12.0); Neutrophils % (auto) 85.2 % (37.0-80.0); Platelet Count (auto) 130 10^3/uL (140-450); Red Cell Distribution Width 20.5 % (11.8-14.3)
[2019-08-26 10:37] LABS: INR 1.29 (0.9-1.15)
--- NOTE | 2019-08-26 10:38 | NUR ---
PATIENT PLACED ON 4 LITERS NASAL CANULA. SATURATIONS STABLE AT THIS TIME. WILL CONTINUE TO MONITOR.
--- NOTE | 2019-08-26 10:38 | NUR ---
CHANGED TO NASAL CANNULA AT THIS TIME, SPO2 97%. Addendum: 08/26/19 at 1042 by Rema Agrawal RT Amended: Links added.
[2019-08-26 10:45] LABS: Albumin 1.3 g/dL (3.4-5.0); Magnesium 1.8 mg/dL (1.6-2.6); Potassium 4.1 mmol/L (3.5-5.1)
[2019-08-26 10:50] LABS: BUN/Creatinine Ratio 14.2; Bilirubin, Total 2.7 mg/dL (0.2-1.0); Phosphorus 5.5 mg/dL (2.5-4.90)
--- NOTE | 2019-08-26 11:58 | NUR ---
Nutrition Follow-up Notes Wt.: 65.8 kg Pt's extubated sleeping with no family by bedside. per records pt s/p ROSALBA and lung abscess. pt with no distress noted currently on clear liq diet with inadequate PO of 0% x 4 per RN doc as pt is refusing. pt had HD 08/24 Est. Needs: 1750 kcal to 2100 kcal (25-30 kcal/kgBW), 84 gms to 105 gms pro (1.2-1.5 gms/kgBW d/t ESRD on HD). Will continue to monitor pertinent labs and reassess nutrient need prn Labs: BUN 41 H, CREAT 3.12 H, CA 6.9 L, Skin: Tae scale 13, mod risk, pt's right lateral chest blister/skin tear per rn documentation specialist. Pls refer to latest supervisor veneer's notes for details re: tx plans. GI: Pt's no bowel activity since 09/13/18 per rn documentation specialist. PES: Increased nutrient needs r/t acute/chronic medical condition aeb intubated, sedated, severe hypoalbuminemia, ESRD on HD, NPO. Altered nutrition related lab values r/t current/chronic medical condition aeb hyperchloremia, elev. renal labs, ALP, hyperbilirubinemia, hypocalcemia and severe hypoalbuminemia Will continue to monitor PO intake, skin status, pertinent labs and weight trend. F/u in 2 to 3 days. Rec.: 1.) Consider ensure clear 1 carton bid if PO is low. 2) If Albumin continues trending down, consider Prostat 1 pkt BID. 3.) Consider daily Nephrovite and Asc acid 500 mgs BID. 4.) Advance gradually to oral diet when medically appropriate. 5.) Refer to RD for further nutrition educ. and weight monitoring upon discharge. 6.) Continue current plan of care.
[2019-08-26 12:00] VITALS: BP 134/72
[2019-08-26] MEDS: InsuLIN REG 1unit/0.01ml Soln (100units/ml) SC SCH ×3 (12:00→18:00)
[2019-08-26] MEDS: ACCU-CHEK COMFORT CURVE STRIP VI SCH ×3 (12:00→18:00)
[2019-08-26] MEDS: LORazepam 2MG/ML-1ML VIAL IV PRN ×2 (14:16→21:41)
[2019-08-26 16:00] VITALS: BP 145/79
--- NOTE | 2019-08-26 16:15 | NUR ---
DR DUNHAM AT BEDSIDE TO ASSESS PATIENT AND DISCUSS PLAN OF CARE. NO NEW ORDERS AT THIS TIME.
[2019-08-26 20:00] VITALS: BP 132/68
[2019-08-26] MEDS: ATORVASTATIN 20 MG TAB NG SCH (21:41)
[2019-08-26] MEDS: METOPROLOL TARTRATE 50 MG TAB PO SCH ×2 (21:42)
--- NOTE | 2019-08-26 22:46 | NUR ---
Pt severely confused. Has referred to RN as "Mom" and has made random statements that are inappropriate and do not make sense. Pt yells out often. Ativan given for anxiety, has not seemed to make a difference but will continue to monitor. Pt has been turned and gets upset during turning. Medications were taken well by crushing and mixing in apple sauce. IJ patent and flushes well. SCD's are applied and mittens on for safety. Pt on contact and droplet precautions. Will continue to monitor.
[2019-08-27] VITALS (7 sets, daily range): BP systolic 112–134; BP diastolic 53–73
--- NOTE | 2019-08-27 02:00 | NUR ---
PAIN: Pt c/o pain "all over body." Pt unable to rate on scale of 1-10, but pt yelling out and writhing. Pt medicated w/ [place] 5/325mg PO as per order. To continue to monitor pt.
[2019-08-27] MEDS: HYDROcodone-ACET 5/325MG TAB PO PRN ×2 (02:01→13:58)
[2019-08-27] MEDS: LORazepam 2MG/ML-1ML VIAL IV PRN (02:38)
[2019-08-27] MEDS: ALBUTEROL SULF 2.5 MG/0.5ML(0.5%) NEB SOLN NEB SCH ×6 (02:52→22:18)
[2019-08-27] MEDS: ACETYLCYSTEINE 20%(200MG/ML) SOL 4ML NEB SCH ×6 (02:53→22:18)
[2019-08-27] MEDS: InsuLIN REG 1unit/0.01ml Soln (100units/ml) SC SCH ×5 (06:00→23:32)
--- NOTE | 2019-08-27 06:08 | NUR ---
Unable to draw from central line. Lab was notified and stated they would send someone back to draw. All three port flush but none pulled back. Pt was repositioned with same result. Stable. Will continue to monitor.
[2019-08-27] MEDS: ACCU-CHEK COMFORT CURVE STRIP VI SCH ×5 (06:17→23:32)
[2019-08-27] MEDS ORDERED: SODIUM CHL 0.9% 1000 ML BAG XX ONE (07:00)
--- NOTE | 2019-08-27 07:07 | NUR ---
Lab called, notified RN CBC clotted, will send someone stat to redraw.
[2019-08-27 07:20] LABS: Albumin 1.3 g/dL (3.4-5.0); Calcium 7.1 mg/dL (8.5-10.1); Magnesium 1.9 mg/dL (1.6-2.6); Potassium 4.6 mmol/L (3.5-5.1)
[2019-08-27 07:23] LABS: BUN/Creatinine Ratio 13.8; Bilirubin, Total 4.3 mg/dL (0.2-1.0); Phosphorus 6.4 mg/dL (2.5-4.90); Total Protein 6.7 g/dL (6.4-8.2)
--- NOTE | 2019-08-27 08:00 | NUR ---
Opening Shift Note Assumed care of patient. Patient A&Ox self only. Patient on the monitor. Patient on 4L NC saturation at 95%. IV right IJ triple lumen saline locked, patent, clean, dry, and intact. Crow to gravity. Patient on contact and droplet for MRSA. Patient on CLD diet. No S/S of distress/SOB or pain. Instructed on POC and to call for assist. Bed locked and in the lowest position, side rails up x2, call light with in reach. Will continue to monitor.
--- NOTE | 2019-08-27 08:15 | NUR ---
Dr. Salazar at bedside.
--- NOTE | 2019-08-27 08:30 | NUR ---
Patient sitting up in bed eating breakfast with assistance from Dane LINARES
[2019-08-27 08:32] LABS: Basophils # (auto) 0.1 uL; Eosinophils # (auto) 0.1 uL; Monocytes # (auto) 0.2 uL; Red Blood Cells 3.37 10^6/uL (4.0-5.20)
[2019-08-27 08:34] LABS: Basophils % (auto) 1.5 % (0.0-2.0); Eosinophils % (auto) 1.2 % (0.0-7.0); Hematocrit 27.5 % (36.0-46.0); Hemoglobin 9.1 g/dL (12.2-16.2); Lymphocytes # (auto) 1.1 uL; Lymphocytes % (auto) 21.9 % (10.0-50.0); Mean Corpuscular Hemoglobin 26.9 pg (28.0-32.0); Mean Corpuscular Volume 81.4 fL (80.0-100.0); Monocytes % (auto) 3.9 % (0.0-12.0); Neutrophils # (auto) 3.6 uL; Neutrophils % (auto) 71.5 % (37.0-80.0); Nucleated Red Blood Cells % 0.2 %; Platelet Count (auto) 136 10^3/uL (140-450); Red Cell Distribution Width 20.7 % (11.8-14.3)
[2019-08-27 09:44] LABS: Ferritin 380.5 ng/mL (10-322); Folate (Folic Acid) 2.19 ng/mL (5.38-24)
[2019-08-27] MEDS ORDERED: VANCOMYCIN 1GM/250ML 250 ML IV ONE ×2 (10:00)
--- NOTE | 2019-08-27 10:00 | NUR ---
Medication dosages, usages, and side effects explained to patient. Patient unable to verbalized understanding. Will continue to monitor.
--- NOTE | 2019-08-27 12:00 | NUR ---
Dr. Oneill at bedside.
--- NOTE | 2019-08-27 12:30 | NUR ---
Patient sitting up in bed eating lunch with assistance from Dane LINARES
[2019-08-27] MEDS: METOPROLOL TARTRATE 50 MG TAB PO SCH ×2 (13:58→22:00)
[2019-08-27] MEDS: rifAMPin 300 MG CAP PO SCH ×2 (13:58→22:00)
[2019-08-27] MEDS: PANTOPRAZOLE 40 MG/10 ML VIAL INJ IV SCH (13:58)
--- NOTE | 2019-08-27 15:05 | NUR ---
TRANSFER: Faxed over [facility] to [facility]. Spoke to Jsae to place pt on ""will call". Pt on "will call."
--- NOTE | 2019-08-27 15:07 | NUR ---
Transfer packet faxed to [facility] and Siri called with confirmation of receiving packet. I asked Siri what the bed situation was like and she stated they are starting to have d/c s
--- NOTE | 2019-08-27 15:30 | NUR ---
Dr. Lea at bedside.
--- NOTE | 2019-08-27 16:00 | NUR ---
Spoke with Patient's Daughter Divya on the phone for Carlos Alberto cath placement per Dr. Salazar's orders. Patient's Daughter Divya refused, Marina [facility] confirmed refusal by phone.
--- NOTE | 2019-08-27 18:30 | NUR ---
End of Shift Note: Patient A&Ox self only. Patient on the monitor. Patient on 4L NC saturation at 97%. IV right IJ triple lumen saline locked, patent, clean, dry, and intact. Crow to gravity. Patient on contact and droplet for MRSA. Patient on CLD diet. No S/S of distress/SOB or pain. Report to be given to night court magistrate RN. Bed locked and in the lowest position, side rails up x2, call light with in reach. Will continue to monitor.
--- NOTE | 2019-08-27 19:15 | NUR ---
OPENING SHIFT RECEIVED REPORT FROM DAY SHIFT RN. ASSUMED CARE OF PATIENT. PATIENT IN BED WITH NO SIGNS OR SYMPTOMS OF SOB, PAIN OR DISTRESS. CURRENTLY ON 4L 02 NASAL CANNULA, 02 SAT 96%. RIGHT INTRAJUGULAR TLC - CLEAN/DRY/INTACT. GANDARA HUNG TO GRAVITY ON BED RAIL. REPOSITIONED FOR COMFORT. BED IN LOWEST POSITION, SIDE RAILS UP X2, CALL LIGHT WITHIN REACH. WILL CONTINUE TO MONITOR.
--- NOTE | 2019-08-27 20:30 | NUR ---
MANPREET RAMIREZ SPOKE WITH VANESSA FROM [facility] IN REGARDS TO TRANSFERRING PATIENT. VANESSA ATTEMPTED TO CALL DR. CASTREJON BUT VOICEMAIL IS FULL. WILL ENDORSE TO DAY SHIFT RN.
[2019-08-27] MEDS ORDERED: EPOETIN ALFA 10,000 UNIT/1 ML VIAL SC ONE (21:00)
[2019-08-27] MEDS: ATORVASTATIN 20 MG TAB NG SCH (22:00)
[2019-08-28 00:02] VITALS: BP 121/64
[2019-08-28] MEDS: ACETYLCYSTEINE 20%(200MG/ML) SOL 4ML NEB SCH ×4 (02:33→14:32)
[2019-08-28] MEDS: ALBUTEROL SULF 2.5 MG/0.5ML(0.5%) NEB SOLN NEB SCH ×4 (02:33→14:32)
--- NOTE | 2019-08-28 03:30 | NUR ---
MORNING CARE PERFORMED MORNING CARE WITH CHG WIPES AND WASH CLOTHS TO THE FACE. FULL LINEN CHANGE AND GOWN CHANGED. REPOSITIONED FOR COMFORT. BED IN LOWEST POSITION, SIDE RAILS UP X2, CALL LIGHT WITHIN REACH. WILL CONTINUE TO MONITOR.
[2019-08-28 04:02] VITALS: BP 124/67
[2019-08-28] MEDS: ACCU-CHEK COMFORT CURVE STRIP VI SCH ×3 (05:16→17:30)
[2019-08-28] MEDS: InsuLIN REG 1unit/0.01ml Soln (100units/ml) SC SCH ×3 (05:16→18:00)
--- NOTE | 2019-08-28 05:16 | NUR ---
LOW BLOOD SUGAR BLOOD SUGAR - 65. GAVE PATIENT ORANGE JUICE WITH 2 PACKS OF SUGAR. WILL CONTINUE TO MONITOR.
--- NOTE | 2019-08-28 06:45 | NUR ---
RIGHT INTRAJUGULAR REMOVED PATIENT REMOVED RIGHT INTRAJUGULAR TLC - MINIMAL BLEEDING, PRESSURE HELD WITH GAUZE. WILL CONTINUE TO MONITOR.
--- NOTE | 2019-08-28 06:55 | NUR ---
IV INSERTION LEFT WRIST IV 22G INSERTED. PATIENT TOLERATED. WILL CONTINUE TO MONITOR.
--- NOTE | 2019-08-28 07:12 | NUR ---
END OF SHIFT REPORT GIVEN TO DAY SHIFT RN. CARE ENDORSED.
[2019-08-28 08:00] VITALS: BP 108/58
--- NOTE | 2019-08-28 08:00 | NUR ---
Opening Shift Note Assumed care of patient. Patient A&Ox self only. Patient on the monitor. Patient on 4L NC saturation at 96%. IV left wrist 22G saline locked. Mittens on patient to prevent dialysis catheter from being pulled out, PMSC intact bilateral. SCD bilateral. Crow to gravity. Patient on contact and droplet for MRSA. Patient on CLD diet. No S/S of distress/SOB or pain. Instructed on POC and to call for assist. Bed locked and in the lowest position, side rails up x2, call light with in reach. Will continue to monitor.
--- NOTE | 2019-08-28 08:30 | NUR ---
Patient sitting up in bed eating breakfast with assistance from Dane LINARES
--- NOTE | 2019-08-28 09:30 | NUR ---
TRANSFER: [facility] has declined pt since their medicine teams are at full capacity. I have faxed to [facility] and will fax to [facility].
[2019-08-28] MEDS: rifAMPin 300 MG CAP PO SCH (09:47)
[2019-08-28] MEDS: PANTOPRAZOLE 40 MG/10 ML VIAL INJ IV SCH (09:47)
[2019-08-28] MEDS: METOPROLOL TARTRATE 50 MG TAB PO SCH (09:48)
--- NOTE | 2019-08-28 10:00 | NUR ---
Medication dosages, usages, and side effects explained to patient. Patient unable to verbalized understanding. Will continue to monitor.
--- NOTE | 2019-08-28 11:45 | NUR ---
WOUND CARE NOTE: IN TO SEE PATIENT FOR SKIN INTEGRITY AT THIS TIME. SHE CONTINUES TO REST ON SPECIALTY AIR BED. PATIENT NOW IN CARI, AWAKE, THRASHING ABOUT IT BED, MITTENS ON. SHE IS AGITATED. PATIENT HAS INCONTINENT STOOL NOTED, PERICARE GIVEN AT THIS TIME. PATIENT'S DTI TO THE RIGHT HIP IS RESOLVING NICELY, WITH FADING DARK RED LINEAR AREAS NOTED. SKIN REMAINS INTACT, IMPROVING. SACRAL DTI HAS CONTINUED TO EVOLVE, AND IS NOW OPEN TO STAGE 2. OPEN WOUND BED AREA MEASURES 2 X 1.5 CM. WOUND BED IS PALE PINK. DTI IS 4 X 6 CM. DTI REMAINS PURPLE. PERIWOUND IS RED/PINK. APPLIED THERAHONEY, OPTIFOAM GENTLE DRESSING. OPEN BLISTERS TO RIGHT CHEST/BREAST AREAS ARE NOW CLOSED, NON DRAINING. OPTIFOAM GENTLE DRESSINGS APPLIED TO COVER AND PROTECT. NEW WOUND PHOTOS TAKEN AT THIS TIME FOR REFERENCE, AND CAN BE USED FOR DISCHARGE PHOTOS IF PATIENT IS TRANSFERRED/DISCHARGED WITHIN THE NEXT 24 HOURS. RECOMMEND: CONTINUATION WITH ALL WOUND CARE ORDERS PREVIOUSLY PRESCRIBED BY MD. WOUND CARE TEAM WILL CONTINUE TO MONITOR. Addendum: 08/28/19 at 1511 by Dary Minor RN Amended: Links added.
[2019-08-28 12:00] VITALS: BP 110/58
[2019-08-28] MEDS ORDERED: CLOPIDOGREL BISULFATE 75 MG TAB PO ONE (12:30)
[2019-08-28] MEDS ORDERED: ASPirin 81 mg TAB PO ONE (12:30)
--- NOTE | 2019-08-28 12:30 | NUR ---
Patient sitting up in bed eating lunch with assistance from Dane LINARES
[2019-08-28] MEDS ORDERED: IRON SUCROSE COMPLEX 200 MG in SODIUM CHL 0.9% 100 ML IV SCH ×2 (12:32→13:54)
--- NOTE | 2019-08-28 13:19 | NUR ---
transfer: received a call from Prateek at [facility] and he left me a message wanting to know why we are transferring pt. So I had to leave Prateek a message stating pt needed infectious disease MD which we do not have, and poss vascular sx for removal of clot to IJ. await response
--- NOTE | 2019-08-28 13:19 | NUR ---
Nutrition Follow-up Notes Wt.: 64.5 kg today. Pt's in isolation room, asleep, no immediate family member at bedside during rounds this morning. Pt had dialysis (08/24/19), on oxygen via nasal cannula, no signs of distress noted earlier, currently on Clear Liquid diet with fair PO intake aeb 60% ave. consumed meals (x5) in last 2.5 days. Est. Needs: 1750 kcal to 2100 kcal (25-30 kcal/kgBW), 84 gms to 105 gms pro (1.2-1.5 gms/kgBW d/t ESRD on HD). Will continue to monitor pertinent labs and reassess nutrient need prn Labs: POC Gluc 158 H; 08/27/19 BUN 58H, Cr 4.21 H, Ca 7.1 L, Phos 6.4 H, Tot sarah 4.3 H, ALT 11 L, ALP 227 H, Alb 1.3 L Skin: Tae scale 12, high risk, pt's right lateral chest blister/skin tear per hall supervisor. Pls refer to latest insulation extruder operator's notes for details re: tx plans. GI: Pt had 1 BM08/26/19 per hall supervisor. PES: Increased nutrient needs r/t acute/chronic medical condition aeb intubated, sedated, severe hypoalbuminemia, ESRD on HD, NPO. Altered nutrition related lab values r/t current/chronic medical condition aeb hyperchloremia, elev. renal labs, ALP, hyperbilirubinemia, hypocalcemia and severe hypoalbuminemia Will continue to monitor PO intake, skin status, pertinent labs and weight trend. F/u in 2 to 3 days. Rec.: 1.) Advance gradually to oral diet when medically appropriate. 2.) If still on Clear Liquid diet, consider Ensure Clear 1 carton TID. 3.) If Albumin continues trending down, consider Prostat 1 pkt BID. 4.) Consider daily Nephrovite and Asc acid 500 mgs BID. 5.) Refer to RD for further nutrition educ. and weight monitoring upon discharge. 6.) Continue current plan of care.
--- NOTE | 2019-08-28 13:21 | NUR ---
also called [facility] and spoke to Mahendra yadomestic housekeeper, he will call me back to see about pt coming to their facility, he is in a code right now
--- NOTE | 2019-08-28 13:58 | NUR ---
TRANSFER: Dr. Yennifer Youngblood has accepted pt at [facility]. We are waiting for a bed assignment and ph # to call report. [facility] (ph [phone]) will call me if I am still here or the unite with information. [facility] is on will call
[2019-08-28] MEDS ORDERED: SODIUM FERR GLUC 62.5MG/5ML 125 MG in SODIUM CHL 0.9% 100 ML IV SCH ×2 (14:30→15:00)
--- NOTE | 2019-08-28 14:46 | NUR ---
Transfer: Heather from [facility] transfer stated pt will go to RM [id number] and ph # for report is [phone]. [facility] will picker / packer pt from [facility] at 1700 hrs to transport to [facility]
[2019-08-28 15:53] VITALS: BP 113/63
--- NOTE | 2019-08-28 16:30 | NUR ---
Patient's IV left wrist 22G infiltrated. IV removed, catheter intact, pressure dressing placed. New IV placed right wrist 22G saline locked, patent, clean, dry, and intact.
--- NOTE | 2019-08-28 17:30 | NUR ---
[facility] picked up patient. Transfer paperwork signed and in transfer packet. Packet and all belongings taken with LAURYN. Report to be called to [facility] at [phone]
--- NOTE | 2019-08-28 18:00 | NUR ---
Report called to [facility] ([phone]) [facility]. Patient going to room [address] Yennifer Youngblood.
[2019-08-29] MEDS ORDERED: CLOPIDOGREL BISULFATE 75 MG TAB PO SCH (10:00)
[2019-08-29] MEDS ORDERED: ASPirin 81 mg TAB PO SCH (10:00)
== END 2019-08-28 18:48 | disposition short-term general hospital (02) | DRG 280 ==
LOC: EDBD 18:59 → ER 19:02 → TELE 19:03 → ICU WEST 08-14 10:16 → DOU IN ICU 08-22 18:28
PROVIDERS: ADMIT Nurse Practitioner; ATTEND Internal Medicine
PROC: 5A1955Z Respiratory Ventilation, Greater than 96 Consecutive Hours (ICD-10-PCS; 2019-08-14)
PROC: 0BH17EZ Insertion of Endotracheal Airway into Trachea, Via Natural or Artificial Opening (ICD-10-PCS; 2019-08-14)
PROC: 5A1D70Z Performance of Urinary Filtration, Intermittent, Less than 6 Hours Per Day (ICD-10-PCS; 2019-08-14)
PROC: 30233P1 Transfusion of Nonautologous Frozen Red Cells into Peripheral Vein, Percutaneous Approach (ICD-10-PCS; 2019-08-14)
PROC: 02HV33Z Insertion of Infusion Device into Superior Vena Cava, Percutaneous Approach (ICD-10-PCS; 2019-08-15)
PROC: B548ZZA Ultrasonography of Superior Vena Cava, Guidance (ICD-10-PCS; 2019-08-15)
PROC: 02PYX3Z Removal of Infusion Device from Great Vessel, External Approach (ICD-10-PCS; 2019-08-15)
PROC: B246ZZ4 Ultrasonography of Right and Left Heart, Transesophageal (ICD-10-PCS; 2019-08-16)
PROC: 30233R1 Transfusion of Nonautologous Platelets into Peripheral Vein, Percutaneous Approach (ICD-10-PCS; principal; 2019-08-19)
PROC: 0B978ZZ Drainage of Left Main Bronchus, Via Natural or Artificial Opening Endoscopic (ICD-10-PCS; 2019-08-21)
DX: T82.7XXA Infection and inflammatory reaction due to other cardiac and vascular devices, implants and grafts, initial encounter (principal); A41.9 Sepsis, unspecified organism; I21.A1 Myocardial infarction type 2; R65.21 Severe sepsis with septic shock; N18.6 End stage renal disease; G92 Toxic encephalopathy; J96.00 Acute respiratory failure, unspecified whether with hypoxia or hypercapnia; I50.33 Acute on chronic diastolic (congestive) heart failure; J85.1 Abscess of lung with pneumonia; E44.0 Moderate protein-calorie malnutrition; M86.8X8 Other osteomyelitis, other site; I76 Septic arterial embolism; T82.818A Embolism due to vascular prosthetic devices, implants and grafts, initial encounter; E11.22 Type 2 diabetes mellitus with diabetic chronic kidney disease; E11.65 Type 2 diabetes mellitus with hyperglycemia; D63.8 Anemia in other chronic diseases classified elsewhere; D69.6 Thrombocytopenia, unspecified; B19.20 Unspecified viral hepatitis C without hepatic coma; D69.59 Other secondary thrombocytopenia; E66.9 Obesity, unspecified; I70.8 Atherosclerosis of other arteries; F41.9 Anxiety disorder, unspecified; Z99.2 Dependence on renal dialysis; Z91.19 Patient's noncompliance with other medical treatment and regimen; Z79.899 Other long term (current) drug therapy; Z88.1 Allergy status to other antibiotic agents; Z88.8 Allergy status to other drugs, medicaments and biological substances; Z88.0 Allergy status to penicillin; Z90.49 Acquired absence of other specified parts of digestive tract; Z98.61 Coronary angioplasty status; Z68.23 Body mass index [BMI] 23.0-23.9, adult
CPT/HCPCS: 31622; 36415; 36430; 36600; 70450; 71045; 71260; 71275; 72128; 74176; 74177; 80048; 80053; 80202; 80307; 80320; 81001; 82010; 82553; 82607; 82728; 82746; 82805; 82947; 82962; 83036; 83540; 83550; 83605; 83735; 83880; 84100; 84443; 84484; 85007; 85025; 85027; 85362; 85379; 85384; 85610; 85652; 85730; 86141; 86704; 86706; 86708; 86803; 86850; 86900; 86901; 87040; 87070; 87075; 87077; 87081; 87086; 87088; 87147; 87186; 87205; 87340; 90935; 93005; 93306; 93312; 93970; 94002; 94003; 94640; 96361; 96365; 96367; 96375; C9113; G0378; J0171; J0330; J0696; J0885; J1642; J1756; J1815; J1956; J2250; J2405; J2704; J3430; J3490; J7060